=== PATIENT | female | born 1950 | race Caucasian/White ===

== ENCOUNTER 2016-10-27 05:48 | Emergency (ER) | payer MEDICARE, OTHER ==
--- NOTE | 2016-10-27 06:09 | ED Physician Documentation ---
PD HPI ABD PAIN <Alvarez,Chon Ryder - Last Filed: 10/27/16 06:09> <MaribethgustavoKelsey W - Last Filed: 10/27/16 08:15> - Stated complaint Stated Complaint: ABD PX - Chief complaint Chief Complaint: Abd Pain - Additional information Additional information: hx from pt 65 f hx crohns - her GI is Dr Kirby, not taking meds 2/2 cannot afford them prior bowel resection and tubal ligation upper abd pain began yesterday +NV no BM for two days, had non bloody diarrhea before that no fever chills no bad food or travel ([place]) Review of Systems Constitutional: denies: Fever, Chills Cardiac: denies: Chest pain / pressure Respiratory: denies: Dyspnea GI: reports: Abdominal Pain, Nausea, Vomiting Immunocompromised: denies: Immunocompromised <[place] W - Last Filed: 10/27/16 08:15> PD PAST MEDICAL HISTORY - Past Medical History Past Medical History: Yes Respiratory: Asthma Endocrine/Autoimmune: HyPOthyroidism GI: GERD, Crohn's disease Musculoskeletal: Fibromyalgia, Rheumatoid arthritis - Past Surgical History Past Surgical History: Yes General: Bowel surgery - Social History Does the pt smoke?: No Smoking Status: Never smoker Does the pt drink ETOH?: No Does the pt have substance abuse?: No - Immunizations Immunizations are current?: Yes - POLST Patient has POLST: No <Chon Alvarez A - Last Filed: 10/27/16 06:09> <FelixKelsey W - Last Filed: 10/27/16 08:15> - Present Medications Home Medications: Ambulatory Orders Medication Instructions Recorded Confirmed No Known Home Medications [No 10/27/16 10/27/16 Known Home Medications] - Allergies Allergies/Adverse Reactions: Allergies Allergy/AdvReac Type Severity Reaction Status Date / Time Penicillins Allergy Cramps Verified 10/27/16 05:54 PD ED PE NORMAL - Vitals Vital signs reviewed: Yes - General General: Alert and oriented X 3 - HEENT HEENT: PERRL - Neck Neck: Supple, no meningeal sign - Cardiac Cardiac: RRR - Respiratory Respiratory: No respiratory distress, Clear bilaterally - Abdomen Abdomen: Soft, Other (mod TTP across upper abd and right abd s rebound or guarding) - Derm Derm: Normal color - Neuro Neuro: Alert and oriented X 3 <[place] W - Last Filed: 10/27/16 08:15> - Vitals Vitals: Vital Signs - 24 hr 10/27/16 10/27/16 10/27/16 05:51 07:05 08:00 Temperature 35.9 C L Heart Rate 87 81 81 Respiratory 18 18 18 Rate Blood Pressure 143/77 H 145/75 H 156/68 H O2 Saturation 95 95 87 L 10/27/16 08:05 Temperature Heart Rate Respiratory Rate Blood Pressure O2 Saturation 96 Oxygen O2 Source Nasal cannula Oxygen Flow Rate 2 - Labs Labs: Laboratory Tests 10/27/16 10/27/16 10/27/16 06:45 06:45 06:52 WBC 13.5 H RBC 4.96 Hgb 15.2 Hct 46.2 MCV 93.1 MCH 30.5 MCHC 32.8 RDW 14.0 Plt Count 387 MPV 9.2 Neut # 10.6 H Lymph # 2.0 [place] # 0.8 Eos # 0.1 Baso # 0.1 Absolute Nucleated RBC 0.02 Nucleated RBCs 0.1 Sodium 137 Potassium 4.0 Chloride 96 L Carbon Dioxide 33 H Anion Gap 8.0 BUN 8 Creatinine 0.7 Estimated GFR (MDRD) 84 L Glucose 107 H Calcium 9.1 Total Bilirubin 0.8 AST 29 ALT 21 Alkaline Phosphatase 99 Total Protein 7.2 Albumin 3.9 Globulin 3.3 Albumin/Globulin Ratio 1.2 Lipase 18 L Urine Color YELLOW Urine Clarity CLEAR Urine pH 5.5 Ur Specific [place] >=1.030 H Urine Protein TRACE Urine Glucose (UA) NEGATIVE Urine Ketones NEGATIVE Urine Occult Blood TRACE-INTA Urine Nitrite NEGATIVE Urine Bilirubin NEGATIVE Urine Urobilinogen 0.2 (NORMAL) Ur Leukocyte Esterase TRACE H Urine RBC 0-5 Urine WBC 0-3 Ur Squamous Epith Cells RARE Squamous Urine Bacteria Moderate H Ur Microscopic Review INDICATED Urine Culture Comments INDICATED
[2016-10-27] MEDS ORDERED: SODIUM CHLORIDE 0.9% 1,000 ML IV STA (06:57)
[2016-10-27] MEDS ORDERED: MORPHINE 2 MG/ML SYRINGE IVP STA ×2 (06:57→07:48)
[2016-10-27] MEDS ORDERED: ONDANSETRON 4 MG/2 ML VIAL IVP STA ×2 (06:57→07:48)
[2016-10-27] MEDS ORDERED: MORPHINE 2 MG/ML SYRINGE ONE ×2 (06:58→07:49)
[2016-10-27] MEDS ORDERED: ONDANSETRON 4 MG/2 ML VIAL ONE ×2 (06:58→07:49)
[2016-10-27 07:19] LABS: PH,URINE 5.5 PH (5.0-7.5)
[2016-10-27 07:19] LABS: BASOPHILS # (AUTO) 0.1 10^3/uL (0.0-0.1); BASOPHILS % (AUTO) 0.6 %; EOSINOPHILS # (AUTO) 0.1 10^3/uL (0.0-0.7); EOSINOPHILS % (AUTO) 0.5 %; HCT - HEMATOCRIT 46.2 % (37.0-47.0); HGB - HEMOGLOBIN 15.2 g/dL (12.0-16.0); LYMPHOCYTES % (AUTO) 14.8 %; MEAN CORPUSCULAR HEMOGLOBIN 30.5 pg (27.0-31.0); MEAN CORPUSCULAR HGB CONC 32.8 g/dL (32.0-36.0); MEAN CORPUSCULAR VOLUME 93.1 fL (81.0-99.0); MEAN PLATELET VOLUME 9.2 fL (7.9-10.8); MONOCYTES # (AUTO) 0.8 10^3/uL (0.0-1.0); MONOCYTES % (AUTO) 5.6 %; NEUTROPHILS # (AUTO) 10.6 10^3/uL (1.5-6.6); NEUTROPHILS % (AUTO) 78.5 %; NUCLEATED RED BLOOD CELLS AUTO 0.1 /100WBC; RED BLOOD COUNT 4.96 10^6/uL (4.20-5.40); UNCORRECTED WHITE BLOOD COUNT 13.5 x10^3/uL; WHITE BLOOD COUNT 13.5 x10^3/uL (4.8-10.8)
[2016-10-27 07:25] LABS: ALBUMIN/GLOBULIN RATIO 1.2 (1.0-2.2); BILIRUBIN,TOTAL 0.8 mg/dL (0.2-1.0); CALCIUM 9.1 mg/dL (8.5-10.3); CREATININE 0.7 mg/dL (0.4-1.0); TOTAL PROTEIN 7.2 g/dL (6.7-8.2)
[2016-10-27 07:39] LABS: BILIRUBIN,URINE NEGATIVE (NEGATIVE); UA w/ MICROSCOPIC CHARGE YES; WBC,URINE 0-3 /HPF (0-5)
[2016-10-27 07:40] LABS: UR CULTURE IF IND INDICATED
[2016-10-27] MEDS ORDERED: SODIUM CHLORIDE 0.9% 1,000 ML IV ONE (07:49)
--- NOTE | 2016-10-27 08:19 | ED Physician Documentation ---
History of Present Illness - Stated complaint Stated Complaint: ABD PX - Chief complaint Chief Complaint: Abd Pain - Additonal information Additional information: hx from pt 65 f hx crohns her GI is Dr Kirby at [facility] in [place], not taking meds 2/2 cannot afford them to ER with upper abd pain since yesterday getting worse +NV diarrhea 2 days ago s blood, no BM since no urinary sx prior surgery = bowel resection and tubal no travel or bad food Review of Systems Constitutional: denies: Fever, Chills Cardiac: denies: Chest pain / pressure GI: reports: Abdominal Pain, Nausea, Vomiting. denies: Diarrhea Endocrine: denies: Easy bruising / bleeding Immunocompromised: denies: Immunocompromised PD PAST MEDICAL HISTORY - Past Medical History Past Medical History: Yes Respiratory: Asthma Endocrine/Autoimmune: HyPOthyroidism GI: GERD, Crohn's disease Musculoskeletal: Fibromyalgia, Rheumatoid arthritis - Past Surgical History Past Surgical History: Yes General: Bowel surgery - Present Medications Home Medications: Ambulatory Orders Medication Instructions Recorded Confirmed No Known Home Medications [No 10/27/16 10/27/16 Known Home Medications] - Allergies Allergies/Adverse Reactions: Allergies Allergy/AdvReac Type Severity Reaction Status Date / Time Penicillins Allergy Cramps Verified 10/27/16 05:54 - Social History Does the pt smoke?: No Smoking Status: Never smoker Does the pt drink ETOH?: No Does the pt have substance abuse?: No - Immunizations Immunizations are current?: Yes - POLST Patient has POLST: No PD ED PE NORMAL - Vitals Vital signs reviewed: Yes - General General: Alert and oriented X 3 - HEENT HEENT: Atraumatic - Cardiac Cardiac: RRR - Respiratory Respiratory: No respiratory distress - Abdomen Abdomen: Soft, Other (TTP upper abd and right abd s rebound or gaurding) - Derm Derm: Normal color - Neuro Neuro: Alert and oriented X 3 Results - Vitals Vitals: Vital Signs - 24 hr 10/27/16 10/27/16 10/27/16 05:51 07:05 08:00 Temperature 35.9 C L Heart Rate 87 81 81 Respiratory 18 18 18 Rate Blood Pressure 143/77 H 145/75 H 156/68 H O2 Saturation 95 95 87 L 10/27/16 10/27/16 10/27/16 08:05 09:13 11:32 Temperature Heart Rate 85 89 Respiratory 20 12 Rate Blood Pressure 147/72 H 152/75 H O2 Saturation 96 95 98 Oxygen O2 Source Room air Oxygen Flow Rate 2 - Labs Labs: Laboratory Tests 10/27/16 10/27/16 10/27/16 06:45 06:45 06:52 WBC 13.5 H RBC 4.96 Hgb 15.2 Hct 46.2 MCV 93.1 MCH 30.5 MCHC 32.8 RDW 14.0 Plt Count 387 MPV 9.2 Neut # 10.6 H Lymph # 2.0 [place] # 0.8 Eos # 0.1 Baso # 0.1 Absolute Nucleated RBC 0.02 Nucleated RBCs 0.1 Sodium 137 Potassium 4.0 Chloride 96 L Carbon Dioxide 33 H Anion Gap 8.0 BUN 8 Creatinine 0.7 Estimated GFR (MDRD) 84 L Glucose 107 H Calcium 9.1 Total Bilirubin 0.8 AST 29 ALT 21 Alkaline Phosphatase 99 Total Protein 7.2 Albumin 3.9 Globulin 3.3 Albumin/Globulin Ratio 1.2 Lipase 18 L Urine Color YELLOW Urine Clarity CLEAR Urine pH 5.5 Ur Specific [place] >=1.030 H Urine Protein TRACE Urine Glucose (UA) NEGATIVE Urine Ketones NEGATIVE Urine Occult Blood TRACE-INTA Urine Nitrite NEGATIVE Urine Bilirubin NEGATIVE Urine Urobilinogen 0.2 (NORMAL) Ur Leukocyte Esterase TRACE H Urine RBC 0-5 Urine WBC 0-3 Ur Squamous Epith Cells RARE Squamous Urine Bacteria Moderate H Ur Microscopic Review INDICATED Urine Culture Comments INDICATED - Rads (name of study) CT abd pelvis Radiology: See rad report (cholelithiasis wuth signbs of acute cholecystitis. MAss like lesion pancreatic body approx 5 cm with 2 small adenopathy, no bile duct dilitation, dx mesenchymal pancreatic tumor, endocrine tumor, vs less likely regional nonacute pancreatitis, rec further work up, s/p R hemicolectomy) PD MEDICAL DECISION MAKING - ED course ED course: acute cholecystitis but also pancreatic mass d/w [facility] surgeon Dr De Leon who feels pt better served having surgery at tertiary care facility so can get biopsy etc f mass at the same time surgeon Dr Jame Peters at [facility] accepts pt pt pcn allergy was internal bleeding in 1979 - gave cefoxitin s adverse rxn Departure - Departure Disposition: 02 Transfer Acute Care Hosp Clinical Impression: Cholecystitis, Pancreatic mass Condition: Fair Discharge Date/Time: 10/27/16 12:57
[2016-10-27] MEDS ORDERED: IOPAMIDOL-300 100 ML VIAL IVP ONE (09:01)
[2016-10-27] MEDS ORDERED: IOPAMIDOL-300 50 ML VIAL PO ONE (09:01)
--- NOTE | 2016-10-27 10:17 | CT Preliminary Report ---
Exam: CT Abdomen/Pelvis W/ IMPRESSION: 1. Cholelithiasis with findings suggesting acute cholecystitis; clinical correlation and follow-up ex am of abdominal ultrasound are considered. Negative bile duct dilatation. 2. 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 3. Status post partial right hemicolectomy, unremarkable. 4. Large right diaphragmatic eventration. 5. 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 [facility] SITE ID: [id number]
--- NOTE | 2016-10-27 10:20 | CT Report ---
EXAM: CT ABDOMEN AND PELVIS EXAM DATE: 10/27/2016 09:02 AM. CLINICAL HISTORY: Abdominal pain COMPARISONS: None. TECHNIQUE: Routine helical CT imaging was performed through the abdomen and pelvis. IV contrast: 100 cc, A3 50. Enteric contrast: No. Reconstructions: Coronal and sagittal. In accordance with CT protocol optimization, one or more of the following dose reduction techniques w ere utilized for this exam: automated exposure control, adjustment of mA and/or KV based on patient s ize, or use of iterative reconstructive technique. FINDINGS: Lung Bases and lower chest: There is large right diaphragmatic eventration containing maturity of the liver, the right kidney and the distal ascending colon, with small right basilar compressive atelect asis. Liver: No contour changes or masses. Gallbladder/Bile Ducts: There is a stone in the gallbladder neck, 1.6 cm with diffuse slight thickeni ng wall and hyperenhancement of the gallbladder, small to moderate amount pericholecystic fluid. The re is no bile duct dilatation. Spleen: Normal. Pancreas: Interbody area, is dumbbell shaped mass with heterogeneous enhancement, 2 x 2.1 x 5 cm. The re are 2 small lymph nodes posterior to pancreatic mass, 0.7 cm in short dimension. No pancreatic yusuf t dilatation or peripancreatic fat stranding. Adrenal Glands: Normal. Kidneys: No stone, masses or hydronephrosis. Peritoneal Cavity/Bowel: There is a periampullary duodenal diverticulum without acute inflammatory ch anges, 2.2 x 2 x 3.2 cm. There is a small amount of anterior right perihepatic free fluid; otherwise, no ascites, loculated fluid, abscess or free air. Status post partial right hemicolectomy is noted, unremarkable; no bowel dilatation, thickened wall or acute inflammatory process. Pelvic Organs: The bladder and visualized pelvic organs are within normal limits. Vasculature: No aneurysms or other significant abnormality. Bones: No bony destructive abnormality. There is multilevel mild/moderate degenerative disk disease in lumbar spine, predominantly in the L4-L5 and L5-S1 and mild anterior transition of the L4 and L5, 5 mm. Other: No ventral hernia or inguinal hernia seen. IMPRESSION: 1. Cholelithiasis with findings suggesting acute cholecystitis; clinical correlation and follow-up ex am of abdominal ultrasound are considered. Negative bile duct dilatation. 2. 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 3. Status post partial right hemicolectomy, unremarkable. 4. Large right diaphragmatic eventration. 5. 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 [facility] Referring Provider Line: [phone] SITE ID: [id number]
[2016-10-27] MEDS ORDERED: HYDROmorphone 1 MG/ML SYRINGE IVP STA ×3 (10:55→13:25)
[2016-10-27] MEDS ORDERED: HYDROmorphone 1 MG/ML SYRINGE ONE ×2 (10:56→12:45)
[2016-10-27] MEDS ORDERED: cefOXitin 1 GM in SODIUM CHLORIDE 0.9% MINIBAG 100 ML IV STA (11:12)
[2016-10-27 11:33] VITALS: BP 152/75
== END 2016-10-27 12:57 | disposition short-term general hospital (02) ==
LOC: ED 05:48
DX: K81.9 Cholecystitis, unspecified (principal)
CPT/HCPCS: 36415; 74177; 80053; 81001; 83690; 85025; 87086; 96361; 96374; 96375; 96376; 99284; J1170; Q9967; 81003

== ENCOUNTER 2016-10-27 12:51 | Outpatient (CLI) | payer MEDICARE, OTHER | END 2016-10-27 12:52 | disposition short-term general hospital (02) | LOC: EMS 12:51 | PROVIDERS: ATTEND Surgery | DX: K81.9 Cholecystitis, unspecified (principal) | CPT/HCPCS: A0170; A0425; A0426 ==

== ENCOUNTER 2016-11-02 05:29 | Emergency (ER) | payer MEDICARE, OTHER ==
[2016-11-02 05:40] VITALS: BP 159/84
[2016-11-02] MEDS ORDERED: ONDANSETRON ODT 4 MG TABLET TL STA (05:49)
[2016-11-02] MEDS ORDERED: ONDANSETRON ODT 4 MG TABLET ONE (05:51)
--- NOTE | 2016-11-02 06:03 | ED Physician Documentation ---
PD HPI WOUND RECHECK - Stated complaint Stated Complaint: ABD PX,POST SURG - Chief complaint Chief Complaint: Wound - Histroy obtained from History obtained from: Patient - History of Present Illness Location: Abdomen (She had open cholecystectomy in [place] 10/27 and discharged to [facility] 2 days ago, and then went home yesterday. Daughter is helping her with dressing changes. She has wound drain which is draining. No fevers, is having some nausea but no vomiting. Has had soft BMs. Daughter was concerned that there was some drainage from around the drain tubing in abdomen.) Timing - onset: Last night Associated symptoms: Drainage (from around vacuum suctin tubing, mild.). No: Fever, Redness Recently seen: Surgery (has Rx for pain meds; had Rx for Zofran but is out of it last night.) Review of Systems Constitutional: denies: Fever, Chills Throat: denies: Sore throat Cardiac: denies: Chest pain / pressure, Palpitations Respiratory: denies: Dyspnea, Cough, Wheezing GI: denies: Diarrhea, Bloody / black stool : denies: Dysuria, Frequency Skin: denies: Rash, Lesions PD PAST MEDICAL HISTORY - Past Medical History Respiratory: Asthma Endocrine/Autoimmune: HyPOthyroidism GI: GERD, Crohn's disease Musculoskeletal: Fibromyalgia, Rheumatoid arthritis - Past Surgical History Past Surgical History: Yes General: Cholecystectomy (1 week ago in [place]. Had pancreatic mass noted on CT and she says this will get biopsied in near future (not done during [facility]).), Bowel surgery - Present Medications Home Medications: Ambulatory Orders Medication Instructions Recorded Confirmed Albuterol 2.5 mg INH Q4H PRN 11/02/16 11/02/16 Albuterol Sulfate [Proair Hfa 8.5 gm IH 11/02/16 Inhaler] Budesonide/Formoterol Fumarate 10.2 gm 11/02/16 [Symbicort 160-4.5 Mcg Inhaler] DULoxetine [Cymbalta] 60 mg PO DAILY 11/02/16 11/02/16 Docusate Sodium 100 mg PO DAILY 11/02/16 11/02/16 Gabapentin 400 mg PO DAILY 11/02/16 11/02/16 Hydroxychloroquine [Plaquenil] 200 mg PO DAILY 11/02/16 11/02/16 Levothyroxine [Synthroid] 125 mcg PO QDAC 11/02/16 11/02/16 Liothyronine [Cytomel] 5 mcg PO QDAC 11/02/16 11/02/16 Modafinil 200 mg PO DAILY 11/02/16 11/02/16 Ondansetron HCl [Zofran] 4 mg PO Q6H PRN #20 tablet 11/02/16 Oxybutynin [Ditropan] 5 mg PO BID 11/02/16 11/02/16 Prednisone 10 mg PO DAILY 11/02/16 11/02/16 Senna [Senokot] 8.6 mg PO ONCE 11/02/16 11/02/16 oxyCODONE [Roxicodone] 10 mg PO Q6H 11/02/16 11/02/16 - Allergies Allergies/Adverse Reactions: Allergies Allergy/AdvReac Type Severity Reaction Status Date / Time Penicillins Allergy Cramps Verified 11/02/16 05:41 - Social History Does the pt smoke?: No Smoking Status: Never smoker Does the pt drink ETOH?: No Does the pt have substance abuse?: No - Immunizations Immunizations are current?: Yes - POLST Patient has POLST: No PD ED PE NORMAL - Vitals Vital signs reviewed: Yes - General General: Alert and oriented X 3, No acute distress, Well developed/nourished - HEENT HEENT: Pharynx benign - Neck Neck: Supple, no meningeal sign, No bony TTP, No adenopathy - Cardiac Cardiac: RRR, No murmur - Respiratory Respiratory: No respiratory distress, Clear bilaterally - Abdomen Abdomen: Normal bowel sounds, Soft, Non distended, No organomegaly, Other ( drainage tube from right mid/upper abdomen, draining clear to slightly blood fluids into bulb. There is mild clear fluid from skin around the skin hole for the tubing. No purulence, not tender in the area. Skin not tender. ) Results - Vitals Vitals: Vital Signs - 24 hr 11/02/16 05:34 Temperature 36.3 C L Heart Rate 98 Respiratory 18 Rate Blood Pressure 159/84 H O2 Saturation 94 Oxygen O2 Source Room air PD MEDICAL DECISION MAKING - ED course Complexity details: reviewed results, considered differential, d/w patient Departure - Departure Disposition: 01 Home, Self Care Clinical Impression: Encounter for postoperative wound check, Postoperative nausea Condition: Stable Record reviewed to determine appropriate education?: Yes Instructions: ED Wound Care Follow-Up: Jose Meng MD [Primary Care Provider] - Prescriptions: Ondansetron HCl [Zofran] 4 mg PO Q6H PRN #20 tablet PRN Reason: Nausea / Vomiting Comments: Your wound seems okay right now. Follow up with PMD today as planned. Continue current medications. Ondansatron as needed for nausea. Discharge Date/Time: 11/02/16 06:07
== END 2016-11-02 06:07 | disposition home or self-care (01) ==
LOC: ED 05:29
DX: R11.0 Nausea (principal); Y83.8 Other surgical procedures as the cause of abnormal reaction of the patient, or of later complication, without mention of misadventure at the time of the procedure; Z90.49 Acquired absence of other specified parts of digestive tract; E03.9 Hypothyroidism, unspecified; M06.9 Rheumatoid arthritis, unspecified
CPT/HCPCS: 99283; Q0162

== ENCOUNTER 2016-12-31 08:00 | Outpatient (CLI) | payer MEDICARE, OTHER | END 2016-12-31 23:59 | disposition home or self-care (01) | LOC: LAB.R 08:00 | PROVIDERS: ATTEND Internal Medicine Gastroenterology | DX: K52.9 Noninfective gastroenteritis and colitis, unspecified (principal); C7A.098 Malignant carcinoid tumors of other sites; R63.4 Abnormal weight loss | CPT/HCPCS: 82570; 83497 ==

== ENCOUNTER 2017-01-30 15:56 | Outpatient (CLI) | payer MEDICARE, OTHER | END 2017-01-30 15:57 | disposition critical access hospital (66) | LOC: EMS 15:56 | PROVIDERS: ATTEND Surgery | DX: R53.1 Weakness (principal); R11.2 Nausea with vomiting, unspecified; R19.7 Diarrhea, unspecified | CPT/HCPCS: A0425; A0427 ==

== ENCOUNTER 2017-01-30 16:10 | Emergency (ER) | payer MEDICARE, OTHER ==
[2017-01-30 17:11] LABS: BASOPHILS % (AUTO) 3.3 %; EOSINOPHILS % (AUTO) 5.4 %; HCT - HEMATOCRIT 41.5 % (37.0-47.0); HGB - HEMOGLOBIN 13.3 g/dL (12.0-16.0); LYMPHOCYTES % (AUTO) 25.1 %; MEAN CORPUSCULAR HEMOGLOBIN 28.9 pg (27.0-31.0); MEAN CORPUSCULAR HGB CONC 32.1 g/dL (32.0-36.0); MEAN CORPUSCULAR VOLUME 90.1 fL (81.0-99.0); MEAN PLATELET VOLUME 8.2 fL (7.9-10.8); MONOCYTES % (AUTO) 6.9 %; NEUTROPHILS % (AUTO) 59.3 %; RED CELL DISTRIBUTION WIDTH 14.7 % (12.0-15.0)
[2017-01-30 17:19] LABS: ALBUMIN/GLOBULIN RATIO 0.9 (1.0-2.2); BILIRUBIN,TOTAL 1.3 mg/dL (0.2-1.0); CALCIUM 9.2 mg/dL (8.5-10.3); CREATININE 0.4 mg/dL (0.4-1.0); POTASSIUM 4.2 mmol/L (3.5-5.0); TOTAL PROTEIN 7.6 g/dL (6.7-8.2)
[2017-01-30] MEDS ORDERED: SODIUM CHLORIDE 0.9% 1,000 ML IV ONE ×2 (17:23)
[2017-01-30 17:34] LABS: BAND NEUTROPHILS % (MANUAL) 2 %; BASOPHILS % (MANUAL) 1 %; EOSINOPHILS % (MANUAL) 4 %; LYMPHOCYTES % (MANUAL) 31 %; NEUTROPHILS % (MANUAL) 57 %; TOTAL CELLS COUNTED 100
[2017-01-30 17:36] LABS: NP AUTO DIFFERENTIAL? YES; NP MAN DIFFERENTIAL? NO; PLATELET ESTIMATE, MANUAL INCREASED (>450,000) (NORMAL); PLATELET MORPHOLOGY 1+ GIANT PLATELETS (NORMAL)
[2017-01-30] MEDS ORDERED: IOPAMIDOL-300 100 ML VIAL ONE (17:49)
[2017-01-30] MEDS ORDERED: PROMETHAZINE INJ 25 MG in SODIUM CHLORIDE 0.9% 50 ML IV STA (17:56)
[2017-01-30] MEDS ORDERED: PROMETHAZINE 25 MG/1 ML VIAL ONE (18:02)
[2017-01-30 19:17] LABS: BILIRUBIN,URINE NEGATIVE (NEGATIVE)
[2017-01-30 19:27] LABS: UA CHARGE (STRIP ONLY) YES; UR CULTURE IF IND NOT INDICATED
--- NOTE | 2017-01-30 19:35 | CT Preliminary Report ---
Exam: CT Abdomen/Pelvis W/ IMPRESSION: 1. Extensive postoperative changes with irregular fluid collection at the level of the pancreatic hea d. 2. Cystic lesion of the left lobe of the liver, most likely organized hematoma. 3. Organizing hematoma of left mid anterior omentum. 4. Chronic elevation of right hemidiaphragm and other chronic or incidental findings. [facility] SITE ID: [id number]
--- NOTE | 2017-01-30 19:37 | CT Report ---
EXAM: CT ABDOMEN AND PELVIS EXAM DATE: 01/30/2017 06:58 PM. CLINICAL HISTORY: Vomiting x3 weeks s/p pancreatic surgery. COMPARISONS: 10/27/2016. TECHNIQUE: Routine helical CT imaging was performed through the abdomen and pelvis. IV contrast: 100 cc Isovue-300. Enteric contrast: No. Reconstructions: Coronal and sagittal. In accordance with CT protocol optimization, one or more of the following dose reduction techniques w ere utilized for this exam: automated exposure control, adjustment of mA and/or KV based on patient s ize, or use of iterative reconstructive technique. FINDINGS: Lung Bases: Marked elevation of right hemidiaphragm with small amount of underlying basilar atelectas is, similar to previous study. Otherwise clear. No effusion. Liver: Homogeneous cystic lesion along the anterior inferior margin of the left lobe measuring about 4.2 x 2.5 cm on coronal image 17, not present on previous study. Gallbladder/Bile Ducts: Interval cholecystectomy. No ductal dilation. Spleen: Interval splenectomy. Pancreas: Interval pancreatectomy. Irregular fluid collection at level of pancreatic head measuring a bout 8.0 x 4.6 x 3.0 cm, associated with surgical suture lines and mild hazy infiltration of the panc reatic bed. Adrenal Glands: Normal. Kidneys: Normal. No masses or hydronephrosis. Peritoneal Cavity/Bowel: Minimal colonic diverticulosis. No diverticulitis. Heterogeneous soft tissue density in anterior abdomen just below the left anterior abdominal wall, measuring about 4.5 x 2.8 c m on axial image 53, most likely small hematoma. Additional hazy infiltration of mesenteric fat and o verlying musculature and subcutaneous fat representing mild edema. The appendix is well visualized an d normal. Pelvic Organs: Normal. The bladder and visualized pelvic organs are within normal limits. Vasculature: No aneurysms or other significant abnormality. Bones: No significant abnormality. Other: None. IMPRESSION: 1. Extensive postoperative changes with irregular fluid collection at the level of the pancreatic hea d. 2. Cystic lesion of the left lobe of the liver, most likely organized hematoma. 3. Organizing hematoma of left mid anterior omentum. 4. Chronic elevation of right hemidiaphragm and other chronic or incidental findings. [facility] Referring Provider Line: [phone] SITE ID: [id number]
[2017-01-30] MEDS ORDERED: ONDANSETRON 4 MG/2 ML VIAL IVP STA (20:16)
[2017-01-30] MEDS ORDERED: ONDANSETRON 4 MG/2 ML VIAL ONE (20:25)
[2017-01-30] MEDS ORDERED: MORPHINE 2 MG/ML SYRINGE IVP STA (20:28)
[2017-01-30] MEDS ORDERED: MORPHINE 2 MG/ML SYRINGE ONE (20:34)
--- NOTE | 2017-01-30 21:17 | ED Physician Documentation ---
PD HPI ABD PAIN - Stated complaint Stated Complaint: N/V/D - Chief complaint Chief Complaint: Abd Pain - History obtained from History obtained from: Patient, Family - History of Present Illness Timing - onset: How many weeks ago (3) Timing - duration: Weeks (3) Timing - details: Gradual onset Pain level max: 8 Pain level now: 8 Quality: Aching, Pain Location: All over / everywhere Radiation: Other (non-radiating) Improved by: Meds (oxycodone) Worsened by: Other (nothing) Associated symptoms: Nausea, Vomiting. No: Fever, Hematemesis, Diarrhea, Constipation, Melena, Hematochezia, Dysuria, Hematuria Similar symptoms before: Has not had sx before - Additional information Additional information: Patient is a 66-year-old female who presents to the emergency department with abdominal pain and vomiting status post a pancreatic surgery 3 weeks ago. She states she has been vomiting since approximately 2-3 days after she got home. She states that she has not contacted her surgeon, her primary care doctor or her oncologist. She canceled her chemotherapy because of the vomiting. Denies any fevers. Review of Systems Ten Systems: 10 systems reviewed and negative Constitutional: denies: Fever, Chills Ears: denies: Ear pain Nose: denies: Rhinorrhea / runny nose, Congestion GI: denies: Diarrhea, Hematemesis, Bloody / black stool : denies: Dysuria Skin: denies: Rash Musculoskeletal: denies: Neck pain, Back pain Neurologic: denies: Headache PD PAST MEDICAL HISTORY - Past Medical History Respiratory: Asthma Endocrine/Autoimmune: HyPOthyroidism GI: GERD, Crohn's disease Musculoskeletal: Fibromyalgia, Rheumatoid arthritis Other Past Medical History: pancreatic CA - Past Surgical History Past Surgical History: Yes General: Cholecystectomy, Bowel surgery, Other - Present Medications Home Medications: Ambulatory Orders Medication Instructions Recorded Confirmed Albuterol 2.5 mg INH Q4H PRN 11/02/16 11/02/16 Albuterol Sulfate [Proair Hfa 8.5 gm IH 11/02/16 Inhaler] Budesonide/Formoterol Fumarate 10.2 gm 11/02/16 [Symbicort 160-4.5 Mcg Inhaler] DULoxetine [Cymbalta] 60 mg PO DAILY 11/02/16 11/02/16 Docusate Sodium 100 mg PO DAILY 11/02/16 11/02/16 Gabapentin 400 mg PO DAILY 11/02/16 11/02/16 Hydroxychloroquine [Plaquenil] 200 mg PO DAILY 11/02/16 11/02/16 Levothyroxine [Synthroid] 125 mcg PO QDAC 11/02/16 11/02/16 Liothyronine [Cytomel] 5 mcg PO QDAC 11/02/16 11/02/16 Modafinil 200 mg PO DAILY 11/02/16 11/02/16 Ondansetron HCl [Zofran] 4 mg PO Q6H PRN #20 tablet 11/02/16 Oxybutynin [Ditropan] 5 mg PO BID 11/02/16 11/02/16 Prednisone 10 mg PO DAILY 11/02/16 11/02/16 Senna [Senokot] 8.6 mg PO ONCE 11/02/16 11/02/16 oxyCODONE [Roxicodone] 10 mg PO Q6H 11/02/16 11/02/16 - Allergies Allergies/Adverse Reactions: Allergies Allergy/AdvReac Type Severity Reaction Status Date / Time Penicillins Allergy Cramps Verified 01/30/17 16:18 - Social History Does the pt smoke?: No Smoking Status: Never smoker Does the pt drink ETOH?: No Does the pt have substance abuse?: No - Immunizations Immunizations are current?: Yes - POLST Patient has POLST: No PD ED PE NORMAL - Vitals Vital signs reviewed: Yes - General General: Alert and oriented X 3, No acute distress, Well developed/nourished ( obese female) - HEENT HEENT: PERRL, Moist mucous membranes - Neck Neck: Supple, no meningeal sign - Cardiac Cardiac: RRR, Strong equal pulses - Respiratory Respiratory: No respiratory distress, Clear bilaterally - Abdomen Abdomen: Normal bowel sounds, Soft, Non distended, Other (mild diffuse TTP without peritoneal signs. Incision is clean dry and intact.) - Back Back: No CVA TTP, No spinal TTP - Derm Derm: Warm and dry, No rash - Extremities Extremities: No calf tenderness / cord - Neuro Neuro: Alert and oriented X 3 - Psych Psych: Normal mood, Normal affect Results - Vitals Vitals: Oxygen O2 Source Room air - Labs Labs: Laboratory Tests 01/30/17 01/30/17 01/30/17 16:59 16:59 19:14 WBC 9.0 RBC 4.60 Hgb 13.3 Hct 41.5 MCV 90.1 MCH 28.9 MCHC 32.1 RDW 14.7 Plt Count 732 H MPV 8.2 Neut # Not Reportable Lymph # Not Reportable [place] # Not Reportable Eos # Not Reportable Baso # Not Reportable Absolute Nucleated RBC Not Reportable Total Counted 100 Band Neuts % (Manual) 2 Neutrophils # (Manual) 5.3 Lymphocytes # (Manual) 2.8 Monocytes # (Manual) 0.5 Eosinophils # (Manual) 0.4 Basophils # (Manual) 0.1 Nucleated RBCs Not Reportable Differential Comment MANUAL DIFFERENTIAL Manual Slide Review Indicated WBC Morphology 1+ HYPERSEG NEUT Platelet Estimate INCREASED (>450,000) Platelet Morphology 1+ GIANT PLATELETS RBC Morph Micro Appear 1+ POLYCHROMASIA Sodium 135 Potassium 4.2 Chloride 97 L Carbon Dioxide 27 Anion Gap 11.0 BUN 7 Creatinine 0.4 Estimated GFR (MDRD) 159 Glucose 103 H Calcium 9.2 Total Bilirubin 1.3 H AST 22 ALT 11 Alkaline Phosphatase 107 Total Protein 7.6 Albumin 3.5 Globulin 4.1 Albumin/Globulin Ratio 0.9 L Lipase 36 Urine Color YELLOW Urine Clarity CLEAR Urine pH 6.0 Ur Specific [place] 1.020 Urine Protein NEGATIVE Urine Glucose (UA) NEGATIVE Urine Ketones 15 H Urine Occult Blood NEGATIVE Urine Nitrite NEGATIVE Urine Bilirubin NEGATIVE Urine Urobilinogen 0.2 (NORMAL) Ur Leukocyte Esterase NEGATIVE Ur Microscopic Review NOT INDICATED Urine Culture Comments NOT INDICATED - Rads (name of study) CT abd/pelvis Radiology: Prelim report reviewed, EMP read contemporaneously, See rad report ( Extensive postoperative changes with irregular fluid collection at the level of the pancreatic head. Cystic lesion of the left lobe of the liver, most likely organized hematoma. Organizing hematoma of left mid anterior omentum. Chronic elevation of right hemidiaphragm and other chronic or incidental findings. ) PD MEDICAL DECISION MAKING - ED course Complexity details: reviewed results, re-evaluated patient, considered differential, d/w patient, d/w family, d/w weight loss consultant (2100 - Dr. Smiley ([facility]) graciously accepts in transfer.) ED course: Patient is a 66-year-old female status post pancreatic surgery for a pancreatic mass 3 weeks ago at [facility] in [place]. Has had vomiting since that time and abdominal pain. CT scan reveals a abnormal fluid collection near the pancreatic head on CT as well as what appears to be an organized hematoma in the liver. Discussed the case with 2100 Dr. Smiley, surgery at [facility] in [place] he graciously accepts in transfer. Antibiotics held at this time as no fever and normal WBC. This document was made in part using voice recognition software. While efforts are made to proofread this document, sound alike and grammatical errors may occur. Departure - Departure Disposition: 02 Transfer Acute Care Hosp Clinical Impression: Postoperative abscess Qualifiers: Encounter type: initial encounter Qualified Code(s): T81.4XXA - Infection following a procedure, initial encounter Vomiting Qualifiers: Vomiting type: unspecified Vomiting Intractability: intractable Nausea presence : with nausea Qualified Code(s): R11.2 - Nausea with vomiting, unspecified Condition: Stable Discharge Date/Time: 01/30/17 22:27
[2017-01-30 21:39] VITALS: BP 125/65
== END 2017-01-30 22:27 | disposition short-term general hospital (02) ==
LOC: EDUNIT# → ED 16:10
DX: T81.4XXA Infection following a procedure, initial encounter (principal); R11.2 Nausea with vomiting, unspecified; E03.9 Hypothyroidism, unspecified
CPT/HCPCS: 36415; 74177; 80053; 81003; 83690; 85025; 96365; 96375; 99284; 99285; J2270; J7040; Q9967; 81001; 87086

== ENCOUNTER 2017-01-30 21:49 | Outpatient (CLI) | payer MEDICARE, OTHER | END 2017-01-30 21:50 | disposition short-term general hospital (02) | LOC: EMS 21:49 | PROVIDERS: ATTEND Surgery | DX: R10.9 Unspecified abdominal pain (principal); R11.2 Nausea with vomiting, unspecified | CPT/HCPCS: A0425; A0426 ==

== ENCOUNTER 2017-03-26 14:53 | Emergency (ER) | payer MEDICARE, OTHER ==
[2017-03-26 20:09] LABS: BASOPHILS # (AUTO) 0.1 10^3/uL (0.0-0.1); BASOPHILS % (AUTO) 1.1 %; EOSINOPHILS # (AUTO) 0.3 10^3/uL (0.0-0.7); EOSINOPHILS % (AUTO) 2.8 %; HGB - HEMOGLOBIN 14.3 g/dL (12.0-16.0); LYMPHOCYTES # (AUTO) 3.4 10^3/uL (1.5-3.5); LYMPHOCYTES % (AUTO) 28.4 %; MEAN CORPUSCULAR HGB CONC 31.1 g/dL (32.0-36.0); MEAN CORPUSCULAR VOLUME 90.1 fL (81.0-99.0); MEAN PLATELET VOLUME 8.8 fL (7.9-10.8); MONOCYTES # (AUTO) 0.7 10^3/uL (0.0-1.0); NEUTROPHILS # (AUTO) 7.3 10^3/uL (1.5-6.6); NEUTROPHILS % (AUTO) 61.7 %; NUCLEATED RED BLOOD CELLS AUTO 0.1 /100WBC; RED CELL DISTRIBUTION WIDTH 15.4 % (12.0-15.0); UNCORRECTED WHITE BLOOD COUNT 11.9 x10^3/uL; WHITE BLOOD COUNT 11.9 x10^3/uL (4.8-10.8)
[2017-03-26 20:13] LABS: ALBUMIN/GLOBULIN RATIO 0.9 (1.0-2.2); BILIRUBIN,TOTAL 0.8 mg/dL (0.2-1.0); CALCIUM 9.5 mg/dL (8.5-10.3); CREATININE 0.6 mg/dL (0.4-1.0); POTASSIUM 3.5 mmol/L (3.5-5.0); TOTAL PROTEIN 7.7 g/dL (6.7-8.2)
[2017-03-26] MEDS ORDERED: oxyCOD/ACETAMIN 5 MG/325 MG TABLET PO STA (20:32)
[2017-03-26 20:39] LABS: PLATELET ESTIMATE, MANUAL INCREASED (>450,000) (NORMAL); PLATELET MORPHOLOGY 2+ GIANT PLATELETS (NORMAL); WBC MORPHOLOGY (MULTIPLE) NORMAL APPEARANCE (NORMAL)
[2017-03-26] MEDS ORDERED: oxyCOD/ACETAMIN 5 MG/325 MG TABLET PO ONE (20:39)
--- NOTE | 2017-03-26 21:35 | CT Preliminary Report ---
Exam: CT ABDOMEN/PELVIS W/O IMPRESSION: 1. Extensive postsurgical changes. No evidence of bowel obstruction, fluid collection or acute inflam matory process. 2. No urinary tract stones or obstruction. [facility] SITE ID: [id number]
--- NOTE | 2017-03-26 21:38 | CT Report ---
EXAM: CT ABDOMEN AND PELVIS EXAM DATE: 03/26/2017 09:08 PM. CLINICAL HISTORY: Abd pain with movement, multiple surgeries. COMPARISONS: 01/30/2017 CT. TECHNIQUE: Routine helical CT imaging was performed through the abdomen and pelvis. IV contrast: No. Enteric contrast: No. Reconstructions: Coronal and sagittal. In accordance with CT protocol optimization, one or more of the following dose reduction techniques w ere utilized for this exam: automated exposure control, adjustment of mA and/or KV based on patient s ize, or use of iterative reconstructive technique. FINDINGS: Lung Bases: Unremarkable. Liver: Postoperative changes related to previous right liver resection. The unenhanced liver is other mart unremarkable. Gallbladder/Bile Ducts: The gallbladder has been removed. No bile duct dilatation. Spleen: Absent. Pancreas: Status post partial pancreatectomy. Adrenal Glands: Normal. Kidneys: No urinary tract stones or obstructive changes. Peritoneal Cavity/Bowel: No bowel obstruction, free air or fluid collection. There is diverticulosis without diverticulitis. Fatty left upper quadrant lobule with an irregular soft tissue rim most likel y sequela of prior segmental omental infarction or torsion. The right colon has been removed. Pelvic Organs: Normal. The bladder and visualized pelvic organs are within normal limits. Vasculature: No aneurysms or other significant abnormality. Bones: No significant abnormality. Other: None. IMPRESSION: 1. Extensive postsurgical changes. No evidence of bowel obstruction, fluid collection or acute inflam matory process. 2. No urinary tract stones or obstruction. [facility] Referring Provider Line: [phone] SITE ID: [id number]
--- NOTE | 2017-03-26 21:43 | ED Physician Documentation ---
PD HPI ABD PAIN - Stated complaint Stated Complaint: SURGICAL SITE PX - Chief complaint Chief Complaint: General - History obtained from History obtained from: Patient - History of Present Illness Timing - onset: Today Timing - details: Abrupt onset, Still present Quality: Sharp Location: RUQ Improved by: Position Worsened by: Position, Palpation Associated symptoms: No: Fever, Nausea, Vomiting Similar symptoms before: No diagnosis Recently seen: Surgery - Additional information Additional information: Patient is a 66 year old female with a history of abdominal ca and multiple abdominal surgeries who is presenting to the emergency department for abdominal pain. Patient states that she bent down to pick something up and she felt a sharp pain in her abdomen. Patient states that she does not know if she pulled something or if she did something internally. Review of Systems Constitutional: denies: Fever, Chills Eyes: reports: Reviewed and negative Ears: reports: Reviewed and negative Nose: reports: Reviewed and negative Throat: reports: Reviewed and negative Cardiac: denies: Chest pain / pressure, Palpitations Respiratory: denies: Dyspnea, Cough, Wheezing GI: reports: Abdominal Pain. denies: Abdominal Swelling, Nausea, Vomiting, Constipation, Diarrhea : denies: Dysuria, Frequency, Unable to Void, Incontinent Skin: denies: Rash, Lesions Musculoskeletal: reports: Reviewed and negative Neurologic: denies: Generalized weakness, Focal weakness Endocrine: denies: Polyuria PD PAST MEDICAL HISTORY - Past Medical History Past Medical History: Yes Respiratory: Asthma Endocrine/Autoimmune: HyPOthyroidism GI: GERD, Crohn's disease Musculoskeletal: Fibromyalgia, Rheumatoid arthritis Other Past Medical History: Pancreatic cancer. - Past Surgical History Past Surgical History: Yes General: Cholecystectomy, Bowel surgery, Other - Present Medications Home Medications: Ambulatory Orders Medication Instructions Recorded Confirmed Albuterol 2.5 mg INH Q4H PRN 11/02/16 03/26/17 Budesonide/Formoterol Fumarate 10.2 gm IH BID 11/02/16 [Symbicort 160-4.5 Mcg Inhaler] DULoxetine [Cymbalta] 60 mg PO DAILY 11/02/16 03/26/17 Gabapentin 400 mg PO DAILY 11/02/16 03/26/17 Hydroxychloroquine [Plaquenil] 200 mg PO DAILY 11/02/16 03/26/17 Levothyroxine [Synthroid] 125 mcg PO QDAC 11/02/16 03/26/17 Liothyronine [Cytomel] 5 mcg PO QDAC 11/02/16 03/26/17 Modafinil 200 mg PO DAILY 11/02/16 03/26/17 Ondansetron HCl [Zofran] 4 mg PO Q6H PRN #20 tablet 11/02/16 03/26/17 Oxybutynin [Ditropan] 5 mg PO BID 11/02/16 03/26/17 oxyCODONE [Roxicodone] 10 mg PO Q6H 11/02/16 03/26/17 predniSONE [Prednisone] 10 mg PO DAILY 11/02/16 03/26/17 - Allergies Allergies/Adverse Reactions: Allergies Allergy/AdvReac Type Severity Reaction Status Date / Time Penicillins Allergy Cramps Verified 03/26/17 15:22 - Social History Does the pt smoke?: No Smoking Status: Never smoker Does the pt drink ETOH?: No Does the pt have substance abuse?: No - Immunizations Immunizations are current?: Yes Immunizations: TDAP current <10years - POLST Patient has POLST: No PD ED PE NORMAL - General General: Alert and oriented X 3, Well developed/nourished - HEENT HEENT: Atraumatic, PERRL - Neck Neck: Supple, no meningeal sign - Cardiac Cardiac: RRR, No murmur - Abdomen Abdomen: Soft - Derm Derm: Normal color, Warm and dry, No rash - Extremities Extremities: No deformity, No edema - Neuro Neuro: Alert and oriented X 3, No motor deficit, No sensory deficit, Normal speech Eye Opening: Spontaneous Motor: Obeys Commands Verbal: Oriented GCS Score: 15 - Psych Psych: Normal mood, Normal affect PD ED PE EXPANDED - General General: Alert, In Pain - Respiratory Respiratory: Wheezing - Abdomen Abdomen: Tender to palpation, RUQ (tenderness to right upper quadrant with palpation and with activation of abdominal muscles) Results - Vitals Vitals: Vital Signs - 24 hr 03/26/17 03/26/17 03/26/17 15:18 20:24 20:45 Temperature 36.2 C L 36.0 C L Heart Rate 107 H 108 H 122 H Respiratory 16 18 22 Rate Blood Pressure 135/77 H 124/75 159/100 H O2 Saturation 94 96 97 03/26/17 22:11 Temperature 36.8 C Heart Rate 107 H Respiratory 18 Rate Blood Pressure 138/74 H O2 Saturation 96 Oxygen O2 Source Room air Oxygen Flow Rate 92 - Labs Labs: Laboratory Tests 03/26/17 03/26/17 19:40 19:40 WBC 11.9 H RBC 5.10 Hgb 14.3 Hct 46.0 MCV 90.1 MCH 28.0 MCHC 31.1 L RDW 15.4 H Plt Count 527 H MPV 8.8 Neut # 7.3 H Lymph # 3.4 [place] # 0.7 Eos # 0.3 Baso # 0.1 Absolute Nucleated RBC 0.01 Nucleated RBC % 0.1 Manual Slide Review Indicated WBC Morphology NORMAL APPEARANCE Platelet Estimate INCREASED (>450,000) Platelet Morphology 2+ GIANT PLATELETS RBC Morph Micro Appear NORMAL APPEARANCE Sodium 138 Potassium 3.5 Chloride 97 L Carbon Dioxide 28 Anion Gap 13.0 BUN 10 Creatinine 0.6 Estimated GFR (MDRD) 100 Glucose 107 H Calcium 9.5 Total Bilirubin 0.8 AST 24 ALT 16 Alkaline Phosphatase 103 Total Protein 7.7 Albumin 3.7 Globulin 4.0 Albumin/Globulin Ratio 0.9 L Lipase 17 L - Rads (name of study) ct abdomen and pelvis Radiology: Final report received (no acute intraabdominal pathology) PD MEDICAL DECISION MAKING - ED course Complexity details: reviewed old records, reviewed results, re-evaluated patient , considered differential, d/w patient, d/w family ED course: Patient was seen and examined at bedside. labs were drawn and imaging was ordered. Patient was treated with her home medication of oxycodone. When patient's diagnostics came back they were all within normal limits. Patient required no further work up and was stable for discharge with outpatient follow up. Departure - Departure Disposition: 01 Home, Self Care Clinical Impression: Strain of abdominal muscle Condition: Good Instructions: ED Strain Abdominal Muscle Follow-Up: NISSA STEEVNSON MD [Primary Care Provider] - As Needed Comments: Your diagnostics today were within normal limits. the symptoms are likely secondary to an abdominal muscle strain. You can take your home medications and apply ice or heat as necessary. You may return to the emergency department at any time for new, worsening or uncontrollable symptoms. Discharge Date/Time: 03/26/17 22:00
[2017-03-26 22:13] VITALS: BP 138/74
== END 2017-03-26 22:00 | disposition home or self-care (01) ==
LOC: ED 14:53
DX: S39.011A Strain of muscle, fascia and tendon of abdomen, initial encounter (principal); X50.9XXA Other and unspecified overexertion or strenuous movements or postures, initial encounter; K50.90 Crohn's disease, unspecified, without complications; K21.9 Gastro-esophageal reflux disease without esophagitis; Z85.07 Personal history of malignant neoplasm of pancreas; M06.9 Rheumatoid arthritis, unspecified; M79.7 Fibromyalgia
CPT/HCPCS: 36415; 74176; 80053; 83690; 85025; 99283; 99284; A9270

== ENCOUNTER 2018-06-30 09:19 | Outpatient (CLI) | payer MEDICARE, OTHER ==
[2018-06-30] MEDS ORDERED: GADOBUTROL 10 MMOL/10 ML VIAL ONE (10:18)
[2018-06-30] MEDS ORDERED: GADOBUTROL 10 MMOL/10 ML VIAL IVP ONE (12:32)
--- NOTE | 2018-07-01 14:37 | MRI Report ---
Reason: PANCREATIC NEUROENDOCRINE TUMOR Procedure Date: 06/30/2018 Accession Number: [id number] / [id number] Procedure: MRI - Abdomen W/WO CPT Code: FULL RESULT: EXAM: MR ABDOMEN WITH AND WITHOUT CONTRAST (MR PANCREAS AND MRCP) EXAM DATE: 06/30/2018 12:18 PM. 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 COMPARISON: ABDOMEN W/WO 12/30/2017 10:18 AM. TECHNIQUE: Multiplanar breath-hold T1, T2, and DWI sequences obtained through the pancreas and abdomen on an MR scanner. Dedicated 2D and 3D MRCP sequences obtained through the biliary and pancreatic ducts. Images obtained before and after administration of 10 mL Gadavist intravenous contrast. Multiphase postcontrast sequences obtained through the pancreas. FINDINGS: Lung Bases: Markedly elevated right hemidiaphragm is unchanged. No effusion. Liver: Distorted anatomy due to elevated hemidiaphragm, otherwise intact. A tiny subcentimeter cyst is suggested in the anterior left hepatic lobe, unchanged but partially obscured by motion artifact on prior study. No suspicious liver lesion or mass is identified. Gallbladder: Gallbladder is not visualized, presumably surgically absent. Bile Ducts: No intrahepatic or extrahepatic duct dilatation. Pancreas: As before, there are postoperative changes related to distal pancreatectomy. No pancreatic lesion or mass is identified. The residual pancreatic duct measures 1-2 mm in diameter and appears normal with no stone or stricture. Spleen: Surgically absent. No soft tissue abnormality is identified at the splenectomy site. Kidneys: The kidneys appear normal with no mass or hydronephrosis. Adrenals: The adrenals appear normal. Bowel: The visualized segments of the small bowel and colon appear normal with no inflammation or obstruction. Retroperitoneum: The retroperitoneal structures appear normal with no mass or lymphadenopathy. Other: None. IMPRESSION: 1. Stable distal pancreatectomy and splenectomy changes with no adenopathy or mass to suggest residual or recurrent malignancy. 2. Stable elevated right hemidiaphragm. [facility]
== END 2018-06-30 09:20 | disposition home or self-care (01) ==
LOC: DI 09:19
PROVIDERS: ATTEND Internal Medicine Hematology & Oncology
DX: D3A.8 Other benign neuroendocrine tumors (principal); Z90.411 Acquired partial absence of pancreas; Z90.81 Acquired absence of spleen
CPT/HCPCS: 74183; A9585

== ENCOUNTER 2019-04-18 13:26 | Outpatient (CLI) | payer MEDICARE, OTHER ==
[2019-04-18] MEDS ORDERED: GADOBUTROL 10 MMOL/10 ML VIAL IVP ONE (15:52)
--- NOTE | 2019-04-20 17:58 | MRI Report ---
Reason: PANCREATIC NET Procedure Date: 04/18/2019 Accession Number: [id number] / [id number] Procedure: MRI - Abdomen W/WO CPT Code: Final Report FULL RESULT: EXAM: MR ABDOMEN WITH AND WITHOUT CONTRAST (MR PANCREAS AND MRCP) EXAM DATE: 04/18/2019 03:48 PM. CLINICAL HISTORY: 68-year-old with history of pancreatic neuroendocrine tumor. Follow-up examination. COMPARISON: MRI abdomen from 06/30/2018, 07/01/2017; CT of the abdomen and pelvis from 10/27/2016. TECHNIQUE: Multiplanar breath-hold T1, T2, and DWI sequences obtained through the pancreas and abdomen on an MR scanner. Dedicated 2D and 3D MRCP sequences obtained through the biliary and pancreatic ducts. Images obtained before and after administration of 10 cc Gadavist intravenous contrast. Multiphase postcontrast sequences obtained through the pancreas. FINDINGS: Lung Bases: There is elevation of the right hemidiaphragm, which is not significant change from prior examinations. Atelectasis is present at the right lung base. No pleural effusion. Liver: Overall hepatic size and signal characteristics are within normal limits. No significant fat or iron deposition is demonstrated. There is susceptibility artifact from surgical material in the anterior left hepatic lobe (series 1701, image 72). No focal liver lesions demonstrated. Gallbladder: Gallbladder is surgically absent. Bile Ducts: Within normal limits for the postcholecystectomy state. Common bile duct measures approximate 8 mm (series 601, image 22). No choledocholithiasis demonstrated. There is mild prominence of the intrahepatic bile ducts to the left hepatic lobe, which is similar to the most recent prior examination appears minimally progressed since 2018. No definite stricture is identified, and this could represent progressive post cholecystectomy reservoir effect. Pancreas: There are postsurgical changes from distal pancreatectomy. Along the resection margin, there is a 9 mm area of nodular signal hyperintensity (series 1801, image 58). This is also hyperintense on precontrast images and therefore demonstrates equivocal enhancement. This is not clearly seen on prior examinations. No dilation of the main pancreatic duct. The main pancreatic duct courses anterior to the common bile duct (series 701, image 22), suggestive of divisum configuration. Spleen: Surgically absent. Kidneys: There is a 12 mm cyst in the upper pole of the right kidney (series 701, image 30). In the upper pole of the left kidney, there is a 7 mm T2 hypointense nodule (series 701, image 25), which also demonstrates intrinsic T1 signal hyperintensity (series 701, image 56). This is similar to multiple prior examinations and may represent a hemorrhagic or proteinaceous cyst. No hydronephrosis. Adrenals: No nodules. Bowel: There are diverticuli arising from the second portion of the duodenum. There are postsurgical changes from right hemicolectomy with ileocolonic anastomosis. No evidence of bowel obstruction or inflammation in the visualized portions. Retroperitoneum: No abdominal aortic aneurysm is demonstrated. No retroperitoneal adenopathy. Other: There are fat-containing ventral hernias in the right upper abdomen (series 701, image 18). IMPRESSION: 1. Postsurgical changes from distal pancreatectomy and splenectomy. Along the resection margin of the pancreas, there is suggestion of a small, nodular area of T1 signal hyperintensity with equivocal enhancement, which is not definitely seen previously. Uncertain if this represents heterogeneous portion of the pancreatic parenchyma or local recurrence. Recommend correlation with tumor markers. In addition, short interval follow-up with pancreas protocol CT or MRI is recommended in 2-3 months (or earlier if there is biochemical evidence for recurrence). 2. No liver lesions or other findings suspicious for metastatic disease in the abdomen. 3. Divisum configuration of the pancreas. 4. Slight progression of mild intrahepatic biliary ductal dilation in the left hepatic lobe. No biliary stricture demonstrated, suggesting this may represent sequela of progressive postcholecystectomy reservoir effect. However, consider correlation with serum bilirubin. 5. No significant change in marked elevation of the right hemidiaphragm with mild right basilar atelectasis. [facility]
== END 2019-04-18 13:27 | disposition home or self-care (01) ==
LOC: DI 13:26
PROVIDERS: ATTEND Internal Medicine Hematology & Oncology
DX: Z08 Encounter for follow-up examination after completed treatment for malignant neoplasm (principal); Z85.07 Personal history of malignant neoplasm of pancreas; Z90.81 Acquired absence of spleen
CPT/HCPCS: 74183

== ENCOUNTER 2019-07-10 07:00 | Outpatient (CLI) | payer MEDICARE, OTHER ==
--- NOTE | 2019-07-13 12:01 | MRI Report ---
Reason: NEUROENDOCRINE CA, LIVER, PANCREAS Procedure Date: 07/10/2019 Accession Number: [id number] / [id number] Procedure: MRI - Abdomen W/O CPT Code: Final Report FULL RESULT: EXAM: MR ABDOMEN WITHOUT CONTRAST EXAM DATE: 07/10/2019 09:16 AM. CLINICAL HISTORY: 68-year-old with history of neuroendocrine cancer. Follow-up examination. COMPARISON: MRI abdomen from 04/18/2019, 06/30/2018. TECHNIQUE: Multiplanar breath-hold T1, T2, and DWI sequences obtained through the pancreas and abdomen on an MR scanner. Dedicated 2D and 3D MRCP sequences obtained through the biliary and pancreatic ducts. Examination was performed without intravenous contrast. FINDINGS: Lung Bases: There is redemonstration of severe elevation of the right hemidiaphragm with associated right basilar atelectasis. Liver: The right hepatic lobe is displaced superiorly due to elevation of the right hemidiaphragm. However, overall hepatic size and signal characteristics are within normal limits. There is no evidence of fat or iron deposition. No focal liver lesions are demonstrated. Gallbladder: Gallbladder is surgically absent. Bile Ducts: Common bile duct measures 7 mm, which is within normal limits for the postcholecystectomy state (501, image 26). No choledocholithiasis demonstrated. There is mild prominence of the intrahepatic bile ducts. There appears to be minimal focal ectasia of any intrahepatic bile duct in segment 8 (series 901, image 47), which is similar to prior examinations. Pancreas: There are postsurgical changes from distal pancreatectomy. The remnant pancreas demonstrates pancreas divisum configuration with the main pancreatic duct coursing anterior to the common bile duct (series 901, image 21). No peripancreatic edema is demonstrated. On the prior examination, there was an equivocal focus of enhancement along the pancreatectomy margin. This is not well evaluated on this noncontrast examination. However, no areas of T2 signal hyperintensity or definite restricted diffusion are demonstrated in this region. Spleen: Surgically absent. Kidneys: There are 2 right renal cysts. These include a 12 mm cyst in the upper pole (series 401, image 28) and a suspected 10 mm parapelvic cyst in the interpolar region (series 401, image 28). Previously described T1 hyperintense nodule in the upper pole of the left kidney is not identified. However, it should be noted that the T1 precontrast sequence is limited by wrap artifact. Adrenals: No nodules. Bowel: No evidence of bowel obstruction or inflammation in the visualized portions. There appears to be postsurgical changes from right hemicolectomy. Retroperitoneum: No abdominal aortic aneurysm. No retroperitoneal adenopathy. Other: Small fat-containing ventral hernias are demonstrated (series 801, image 10). IMPRESSION: 1. Noncontrast examination was performed, which is not optimized for detection of locally recurrent or metastatic neoplasm. If noncontrast examination was ordered in error, patient could be recalled for additional imaging without and with IV contrast. 2. Postsurgical changes from distal pancreatectomy and splenectomy. No focus of signal abnormality is demonstrated along the surgical margin to correspond to the focus of equivocal enhancement seen on previous MRI. However, as described above, this noncontrast examination is not optimized for detection of locally recurrent neoplasm. 3. No finding suspicious for metastatic disease in the abdomen by noncontrast MRI. 4. Findings of pancreas divisum. 5. Similar configuration of the bile ducts with mild prominence of the intrahepatic bile ducts. Findings are suspected to represent postcholecystectomy reservoir effect. 6. Redemonstration of elevation of the right hemidiaphragm. RADIA
== END 2019-07-10 07:01 | disposition home or self-care (01) ==
LOC: DI 07:00
PROVIDERS: ATTEND Internal Medicine Hematology & Oncology
DX: Z85.89 Personal history of malignant neoplasm of other organs and systems (principal); Z85.07 Personal history of malignant neoplasm of pancreas; Z90.411 Acquired partial absence of pancreas; Z90.81 Acquired absence of spleen; J98.6 Disorders of diaphragm
CPT/HCPCS: 74181

== ENCOUNTER 2019-09-03 08:00 | Outpatient (CLI) | payer MEDICARE, OTHER | END 2019-09-03 23:59 | disposition home or self-care (01) | LOC: LAB.R 08:00 | PROVIDERS: ATTEND Internal Medicine Gastroenterology | DX: K50.00 Crohn's disease of small intestine without complications (principal); R19.7 Diarrhea, unspecified | CPT/HCPCS: 87493 ==

== ENCOUNTER 2019-11-17 13:35 | Outpatient (CLI) | payer MEDICARE, OTHER ==
[2019-11-17] MEDS ORDERED: GADOBUTROL 10 MMOL/10 ML VIAL IVP ONE (15:37)
--- NOTE | 2019-11-18 17:53 | MRI Report ---
PROCEDURE: Abdomen W/WO INDICATIONS: History of pancreatic cancer. CONTRAST: IV CONTRAST: Gadavist ml: 10 TECHNIQUE: Coronal ultra fast SE, axial 2D spoiled GE in- and [id number]; axial breath-hold T2 fast SE. Dynam ic axial ultra fast GE during the administration of contrast; post-contrast coronal ultra fast GE or 2D spoiled GE with fat saturation from the hepatic dome to the iliac crests. Optional diffusion weig hted imaging and ADC may be performed. COMPARISON: MR pelvis 07/10/2019. CT abdomen and pelvis 03/26/2017. FINDINGS: Image quality: Fair. Image quality degraded by artifact. Lung bases: No basal pleural effusions. Heart size is normal. Similar asymmetric elevation of the r ight hemidiaphragm. Solid organs: Post distal pancreatectomy. No suspicious enhancement identified at the resection site. No pancreatic ductal dilatation. Post splenectomy. Noncirrhotic liver morphology. No significant steatosis. No suspicious focal lesion or enhancement. Gallbladder is absent. No significant biliary dilatation. CBD measures 7 mm. No adr enal nodules. Both kidneys demonstrate normal size and enhancement, without hydronephrosis. Simple right renal cyst. Nodes and vessels: No retroperitoneal or mesenteric adenopathy by size criteria. Aorta and inferior vena cava are normal in size. Bowel and peritoneum: Unenhanced bowel loops are normal in caliber. No free fluid. Bones and soft tissues: No ventral hernias. Bone marrow is normal in overall signal. IMPRESSION: Image quality is again degraded by artifact. 1. No suspicious enhancement identified at the distal pancreatectomy site. Post splenectomy. 2. No suspicious adenopathy seen. 3. No significant pancreatic ductal dilatation. 4. No suspicious hepatic lesions. Consider further follow-up examinations with multiphase CT pancreas given the artifact seen on the MR I exams. Reviewed by: Rakan Cosme MD on 11/18/2019 5:51 PM PDT Approved by: Rakan Cosme MD on 11/18/2019 5:51 PM PDT Station ID: [id number]
== END 2019-11-17 13:36 | disposition home or self-care (01) ==
LOC: DI 13:35
PROVIDERS: ATTEND Internal Medicine Hematology & Oncology
DX: D3A.8 Other benign neuroendocrine tumors (principal); Z08 Encounter for follow-up examination after completed treatment for malignant neoplasm; Z85.89 Personal history of malignant neoplasm of other organs and systems; Z85.07 Personal history of malignant neoplasm of pancreas
CPT/HCPCS: 74183; A9585

== ENCOUNTER 2020-09-29 23:16 | Outpatient (CLI) | payer MEDICARE | END 2020-09-29 23:17 | disposition critical access hospital (66) | LOC: EMS 23:16 | DX: S09.91XA Unspecified injury of ear, initial encounter (principal); M54.2 Cervicalgia; M54.9 Dorsalgia, unspecified; M79.602 Pain in left arm; W10.9XXA Fall (on) (from) unspecified stairs and steps, initial encounter; Y92.59 Other trade areas as the place of occurrence of the external cause | CPT/HCPCS: A0425; A0429 ==

== ENCOUNTER 2020-09-29 23:35 | Emergency (ER) | payer MEDICARE ==
[2020-09-29 23:57] LABS: BASOPHILS # (AUTO) 0.1 10^3/uL (0.0-0.1); BASOPHILS % (AUTO) 0.5 %; EOSINOPHILS % (AUTO) 0.1 %; HCT - HEMATOCRIT 39.3 % (37.0-47.0); HGB - HEMOGLOBIN 12.3 g/dL (12.0-16.0); LYMPHOCYTES # (AUTO) 2.3 10^3/uL (1.5-3.5); LYMPHOCYTES % (AUTO) 13.1 %; MEAN CORPUSCULAR HEMOGLOBIN 31.9 pg (27.0-31.0); MEAN CORPUSCULAR HGB CONC 31.3 g/dL (32.0-36.0); MEAN CORPUSCULAR VOLUME 101.8 fL (81.0-99.0); MEAN PLATELET VOLUME 9.6 fL (7.9-10.8); MONOCYTES # (AUTO) 0.8 10^3/uL (0.0-1.0); MONOCYTES % (AUTO) 4.3 %; NEUTROPHILS % (AUTO) 80.2 %; PLT - PLATELET COUNT 523 10^3/uL (130-450); RED BLOOD COUNT 3.86 10^6/uL (4.20-5.40); RED CELL DISTRIBUTION WIDTH 13.2 % (12.0-15.0); WHITE BLOOD COUNT 17.5 x10^3/uL (4.8-10.8)
[2020-09-29] MEDS ORDERED: IOVERSOL 320 100 ML VIAL IVP ONE (23:57)
[2020-09-30 00:07] LABS: ALBUMIN 3.9 g/dL (3.2-5.5); ALBUMIN/GLOBULIN RATIO 1.3 (1.0-2.2); CALCIUM 9.3 mg/dL (8.5-10.3); CREATININE 0.7 mg/dL (0.4-1.0); POTASSIUM 3.9 mmol/L (3.5-5.0); TOTAL PROTEIN 6.9 g/dL (6.7-8.2)
[2020-09-30] MEDS ORDERED: IOVERSOL 320 100 ML VIAL IVP ONE (00:39)
[2020-09-30] MEDS ORDERED: MORPHINE 2 MG/ML CARPUJECT IVP STA ×3 (01:12→02:30)
[2020-09-30 01:53] LABS: BILIRUBIN,URINE NEGATIVE (NEGATIVE); GLUCOSE, URINE (UA) NEGATIVE (NEGATIVE); KETONES,URINE (UA) NEGATIVE (NEGATIVE); LEUKOCYTE ESTERASE, URINE NEGATIVE (NEGATIVE); NITRITE,URINE NEGATIVE (NEGATIVE); OCCULT BLOOD,URINE NEGATIVE (NEGATIVE); PH,URINE 5.5 PH (5.0-7.5); PROTEIN,URINE NEGATIVE (NEGATIVE); UROBILINOGEN,URINE 0.2 (NORMAL) E.U./dL (NORMAL)
[2020-09-30 01:54] LABS: CLARITY,URINE CLEAR (CLEAR)
[2020-09-30] MEDS ORDERED: oxyCODONE 5 MG TABLET PO STA (02:30)
[2020-09-30 02:43] VITALS: BP 140/78
--- NOTE | 2020-09-30 07:22 | CT Report ---
PROCEDURE: HEAD WO INDICATIONS: fall, head injury TECHNIQUE: Noncontrast 4.5 mm thick angled axial sections acquired from the foramen magnum to the vertex. For r adiation dose reduction, the following was used: automated exposure control, adjustment of mA and/or kV according to patient size. COMPARISON: None FINDINGS: Image quality: Excellent. CSF spaces: Basal cisterns are patent. Small anterior right temporal arachnoid cyst. The ventricles are symmetric in size and shape. Brain: No intracranial bleeds or masses. There is cerebral volume loss for age, with resultant vent ricular and sulcal prominence. There are periventricular and deep white matter chronic small vessel ischemic changes. There is intracranial internal carotid artery atherosclerosis. Skull and face: Calvarium and visualized facial bones appear intact, without suspicious lesions. Mod erate-sized left parietal scalp hematoma. Sinuses: Visualized sinuses and mastoids are clear. IMPRESSION: No acute intracranial disease process. Reviewed by: Paradise Chin MD, PhD on 09/30/2020 7:21 AM PDT Approved by: Paradise Chin MD, PhD on 09/30/2020 7:21 AM PDT Station ID: [id number]
--- NOTE | 2020-09-30 08:01 | ED Physician Documentation ---
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 No: Abdomen, Back Pain level now: 8 Quality of pain: Pain Associated symptoms: Neck pain. No: LOC, AMS, Amnesia, Weakness, Dyspnea, Nausea / vomiting, Abdominal distension Symptoms improve with: Rest Worsens with: Movement Contributing factors: No: Anticoagulated, Intoxicated Recently seen: Not recently seen - Additional information Additional information: BIBA. patient became dizzy at top of flight of stairs, causing her to fall forward down the stairs. denies LOC, c/o left shoulder pain, left head and neck pain, left hip pain. she sustained left ear laceration. Review of Systems Constitutional: reports: Reviewed and negative Eyes: reports: Reviewed and negative Ears: reports: Ear pain Throat: reports: Reviewed and negative Cardiac: reports: Reviewed and negative Respiratory: reports: Reviewed and negative GI: reports: Reviewed and negative : reports: Reviewed and negative Skin: reports: Laceration (s) (left ear) Musculoskeletal: reports: Neck pain, Joint pain (left shoulder). denies: Back pain Neurologic: reports: Head injury. denies: Generalized weakness, Focal weakness, Numbness, Altered mental status, Headache, LOC PD PAST MEDICAL HISTORY - Past Medical History Cardiovascular: None Respiratory: Asthma, COPD, Other Neuro: Headaches Endocrine/Autoimmune: HyPOthyroidism GI: GERD, Crohn's disease : Incontinence, Frequency HEENT: Other Psych: Depression, Anxiety Musculoskeletal: Fibromyalgia, Rheumatoid arthritis Derm: None Other Past Medical History: dizziness, patient has pancreatic cancer - Past Surgical History Past Surgical History: Yes General: Cholecystectomy, Bowel surgery, Other /EMERGENCY DISPATCHER: section, Other HEENT: Cataracts Derm: Other - Present Medications Home Medications: Ambulatory Orders Medication Instructions Recorded Confirmed Albuterol 2.5 mg INH Q4H PRN 11/02/09/29/20 Budesonide/Formoterol Fumarate 10.2 gm IH BID 11/02/16 09/29/20 [Symbicort 160-4.5 Mcg Inhaler] DULoxetine [Cymbalta] 60 mg PO DAILY 11/02/16 09/29/20 Gabapentin 400 mg PO DAILY 11/02/16 09/29/20 Hydroxychloroquine [Plaquenil] 200 mg PO DAILY 11/02/16 09/29/20 Liothyronine [Cytomel] 5 mcg PO QDAC 11/02/16 09/29/20 Ondansetron HCl [Zofran] 4 mg PO Q6H PRN #20 tablet 11/02/16 09/29/20 Oxybutynin [Ditropan] 5 mg PO BID 11/02/16 09/29/20 modafiniL [Modafinil] 200 mg PO DAILY 11/02/16 09/29/20 oxyCODONE [Roxicodone] 10 mg PO Q6H 11/02/16 09/29/20 predniSONE [Prednisone] 10 mg PO DAILY 11/02/16 09/29/20 Levothyroxine Sodium 200 mcg PO DAILY 01/06/18 09/29/20 Digestive 8/L.acidoph/Pectin 1 each PO QDDINNER 09/30/20 09/30/20 [Digestive Enzymes Tablet] Duloxetine HCl [Cymbalta] 60 mg PO DAILY 09/30/20 09/30/20 Fluticasone Propion/Salmeterol 1 each IH PRN PRN 09/30/20 09/30/20 [Wixela 500-50 Inhub] Hydroxychloroquine [Plaquenil] 200 mg PO DAILY 09/30/20 09/30/20 Levothyroxine [Synthroid] 200 mcg DAILY 09/30/20 09/30/20 Olopatadine HCl [Pataday] 2.5 ml OP DAILY 09/30/20 09/30/20 Omeprazole 80 mg PO PRN PRN 09/30/20 09/30/20 - Allergies Allergies/Adverse Reactions: Allergies Allergy/AdvReac Type Severity Reaction Status Date / Time Penicillins Allergy Cramps Verified 09/29/20 23:39 - Social History Does the pt smoke?: No Smoking Status: Never smoker Does the pt drink ETOH?: No Does the pt have substance abuse?: No - Immunizations Immunizations are current?: Yes Immunizations: TDAP current <10years - POLST Patient has POLST: No PD ED PE NORMAL - Vitals Vital signs reviewed: Yes - General General: Alert and oriented X 3, No acute distress, Well developed/nourished - HEENT HEENT: PERRL, EOMI, Moist mucous membranes - Neck Neck: Supple, no meningeal sign, No bony TTP - Cardiac Cardiac: RRR, No murmur - Respiratory Respiratory: No respiratory distress, Clear bilaterally - Abdomen Abdomen: Normal bowel sounds, Soft, Non tender, Non distended - Derm Derm: Normal color, Warm and dry - Extremities Extremities: No deformity - Neuro Neuro: Alert and oriented X 3, emergency nurse 2-12 intact, No motor deficit, No sensory deficit Eye Opening: Spontaneous Motor: Obeys Commands Verbal: Oriented GCS Score: 15 - Psych Psych: Normal mood, Normal affect PD ED PE EXPANDED - HEENT HEENT Visual: 1 - laceration (Thin flap laceration with attached segment at antihelix) - Extremities Extremities: Tenderness, Limited ROM, Left shoulder Results - Vitals Vitals: Oxygen O2 Source Nasal cannula Oxygen Flow Rate 2 - Labs Labs: Laboratory Tests 09/29/20 09/29/20 09/30/20 23:45 23:45 01:50 WBC 17.5 H RBC 3.86 L Hgb 12.3 Hct 39.3 MCV 101.8 H MCH 31.9 H MCHC 31.3 L RDW 13.2 Plt Count 523 H MPV 9.6 Neut # (Auto) 14.0 H Lymph # (Auto) 2.3 [place] # (Auto) 0.8 Eos # (Auto) 0.0 Baso # (Auto) 0.1 Absolute Nucleated RBC 0.00 Nucleated RBC % 0.0 Sodium 139 Potassium 3.9 Chloride 94 L Carbon Dioxide 37 H Anion Gap 8.0 BUN 13 Creatinine 0.7 Estimated GFR (MDRD) 83 L Glucose 102 H Calcium 9.3 Total Bilirubin 1.0 AST 31 ALT 28 Alkaline Phosphatase 92 Total Protein 6.9 Albumin 3.9 Globulin 3.0 Albumin/Globulin Ratio 1.3 Lipase 43 Urine Color YELLOW Urine Clarity CLEAR Urine pH 5.5 Ur Specific [place] 1.010 Urine Protein NEGATIVE Urine Glucose (UA) NEGATIVE Urine Ketones NEGATIVE Urine Occult Blood NEGATIVE Urine Nitrite NEGATIVE Urine Bilirubin NEGATIVE Urine Urobilinogen 0.2 (NORMAL) Ur Leukocyte Esterase NEGATIVE Ur Microscopic Review NOT INDICATED Urine Culture Comments NOT INDICATED - Rads (name of study) CTH Radiology: Prelim report reviewed, See rad report CT cervical spine Radiology: Prelim report reviewed, See rad report CT Abd/pelvis Radiology: Prelim report reviewed, See rad report CT chest Radiology: Prelim report reviewed, See rad report Procedures - Laceration (location) Ear left Length in cm: 1 Wound type: Curved, Flap, Clean, Exposure of cartilage Neurovascular status: Sensory intact Wound preparation: Irrigated copiously NS Skin layer closure: Dermabond Other: Patient tolerated well, No complications PD MEDICAL DECISION MAKING - ED course Complexity details: reviewed results, re-evaluated patient, considered differential, d/w patient, d/w family ED course: patient reported good relief of pain with doses of iv morphine and, prior to d/c, PO oxycodone. she remained AAOx3 during entire stay and was conversant and provided fast and appropriate answers. no neurologic deficit initially nor on repeat exams. ear laceration repaired with indermil. left shoulder placed in sling due to fracture of humeral head. also noted were left 10th rib fracture and mild superior endplate L5 deformity/fracture (without neurologic deficit on exam). results reviewed with patient and family (daughter in ED) and patient is comfortable with d/c home. Departure - Departure Disposition: 01 Home, Self Care Clinical Impression: Lumbar compression fracture, Shoulder fracture, left Rib fracture Qualifiers: Encounter type: initial encounter Rib fracture type: single rib Fracture type: closed Laterality: left Qualified Code(s): S22.32XA - Fracture of one rib, left side, initial encounter for closed fracture Laceration of ear Qualifiers: Encounter type: initial encounter Laterality: left Qualified Code(s): S01.312A - Laceration without foreign body of left ear, initial encounter Condition: Good Instructions: ED Fx Comp Vertebral, ED Fx Rib, ED Laceration Facial Skin Glue, ED Fx Shoulder, ED Sling Follow-Up: Jose Meng MD [Primary Care Provider] - Within 1 week Tai Ramos MD [Provider Admit Priv/Credential] - Discharge Date/Time: 09/30/20 03:05
--- NOTE | 2020-09-30 08:13 | CT Report ---
PROCEDURE: CERVICAL SPINE WO INDICATIONS: fall, neck pain TECHNIQUE: Noncontrast 3 mm thick sections acquired from the skull base to the T4 level. Sagittal and coronal r eformats were then constructed. For radiation dose reduction, the following was used: automated exp osure control, adjustment of mA and/or kV according to patient size. COMPARISON: None. FINDINGS: Image quality: Excellent. Bones: No fractures or dislocations. Visualized superior ribs are intact. Spine degenerative disc disease and facet arthropathy are noted. Soft tissues: Prevertebral soft tissues are normal in thickness. No paravertebral hematomas. No ap ical pneumothoraces. Thyroid gland is atrophied or absent. IMPRESSION: No fracture. No acute osseous lesion. If there is continued clinical concern for pathology, then MRI should be considered for further evaluation. . Reviewed by: Paradise Chin MD, PhD on 09/30/2020 8:12 AM PDT Approved by: Paradise Chin MD, PhD on 09/30/2020 8:12 AM PDT Station ID: [id number]
--- NOTE | 2020-09-30 09:29 | CT Report ---
PROCEDURE: CHEST W INDICATIONS: fall, left shoulder and left chest pain CONTRAST: IV CONTRAST: Optiray 320 ml: 100 PO CONTRAST: *NO PO CONTRAST TECHNIQUE: After the administration of intravenous contrast, 5 mm thick sections acquired from the pulmonary api joan to the posterior costophrenic angles. 7 mm thick coronal MIP reformats were acquired. For radia tion dose reduction, the following was used: automated exposure control, adjustment of mA and/or kV according to patient size. COMPARISON: CT of abdomen dated 03/26/2017. FINDINGS: Image quality: Excellent. Lungs and pleura: Moderate elevation of right hemidiaphragm is seen with adjacent right basilar atele ctasis. Biapical scarring is seen. No pleural effusions or pneumothorax. Central and peripheral airw ays are patent and normal in caliber. Mediastinum: Heart size is normal. No pericardial effusion. Mild atherosclerotic calcifications ar e seen in thoracic aorta and coronary vessels. No mediastinal or hilar adenopathy by size criteria. Thoracic aorta and central pulmonary arteries are normal in size. Esophagus is normal in caliber. N o hiatal hernia. Bones and chest wall: Comminuted and impacted fracture involving proximal left humeral shaft extendin g to greater and lesser tuberosity of left humeral head is seen. No gross acute rib fracture. Degener ative disc disease throughout thoracic spine is seen. No suspicious bony lesions. No vertebral body compression fractures. No axillary or supraclavicular adenopathy by size criteria. The thyroid is n ormal in size and there are no incidental findings.. Abdomen: Visualized upper abdominal solid organs appear normal. Upper abdominal bowel loops are nor mal in caliber. Gallbladder is surgically absent. IMPRESSION: 1. Chronic elevation of right hemidiaphragm and not significantly changed from prior CT study with co mpressive atelectasis of adjacent right lung base. Biapical scarring. No focal infiltrate, pleural e ffusion or pneumothorax. Airway is patent. 2. No mediastinal hematoma. Normal heart size. No pericardial effusion. 3. Acute comminuted and impacted left proximal humeral shaft fracture extending to involve greater an d lesser tuberosities of left humeral head. No gross acute rib fracture. No compression fracture or s pondylolisthesis in thoracic spine. Agree with preliminary reading. Reviewed by: Lenny Toth MD on 09/30/2020 9:27 AM PDT Approved by: Lenny Toth MD on 09/30/2020 9:27 AM PDT Station ID: [id number]
--- NOTE | 2020-09-30 09:41 | CT Report ---
PROCEDURE: Abdomen/Pelvis W INDICATIONS: fall, left pelvis/hip pain CONTRAST: IV CONTRAST: Optiray 320 ml: 100 PO CONTRAST: *NO PO CONTRAST TECHNIQUE: After the administration of IV contrast, 5 mm thick sections acquired from the diaphragms to the symp hysis. 5 mm thick coronal and sagittal reformats were acquired. For radiation dose reduction, the f ollowing was used: automated exposure control, adjustment of mA and/or kV according to patient size. COMPARISON: CT of abdomen and pelvis dated 03/26/2017 and 01/30/2017. MRI of abdomen dated 11/17/2019. FINDINGS: Image quality: Excellent. ABDOMEN: Lung bases: Elevation of right hemidiaphragm is seen with compressive atelectasis of adjacent right l caprice base. Heart size is normal. Solid organs: Liver is normal in size and enhancement. Hepatic steatosis is seen. Spleen is not vis ualized suggestive of prior splenectomy. Gallbladder is surgically absent Biliary system is non dila ismael. Pancreas enhances normally. No adrenal nodules. Kidneys demonstrate normal size and enhanceme nt, without hydronephrosis. Peritoneum and bowel: Bowel loops demonstrate normal wall thickness and caliber. No free fluid or a ir. Postsurgical changes are noted in right upper quadrant abdomen with surgical clips seen. Nodes and vessels: No retroperitoneal or mesenteric adenopathy by size criteria. Aorta and inferior vena cava are normal in size. Miscellaneous: No ventral hernias. PELVIS: Genitourinary: Bladder wall thickness is normal. Miscellaneous: No inguinal hernias or adenopathy. Bones: Slightly comminuted fracture involving left posterior 10th rib is seen. There is age indetermi nant anterior wedge compression deformity involving superior endplate of L5. Chronic grade 1 anteroli sthesis of L4 on L5 is seen. IMPRESSION: 1. Acute comminuted and nondisplaced left posterior 10th rib fracture. 2. Age indeterminant, likely acute superior endplate anterior wedge compression deformity at L5 level . No acute pelvic fracture or dislocation. 3. No acute solid organ injury is seen within abdomen or pelvis. No free fluid of free air. 4. Likely prior splenectomy. Hepatic steatosis. No significant discrepancies from preliminary reading. Reviewed by: Lenny Toth MD on 09/30/2020 9:39 AM PDT Approved by: Lenny Toth MD on 09/30/2020 9:39 AM PDT Station ID: [id number]
== END 2020-09-30 03:05 | disposition home or self-care (01) ==
LOC: EDUNIT# → ED 23:35 → SUPCPDRO 23:35 → ED 09-30 03:05
DX: S32.050A Wedge compression fracture of fifth lumbar vertebra, initial encounter for closed fracture (principal); S42.255A Nondisplaced fracture of greater tuberosity of left humerus, initial encounter for closed fracture; S42.265A Nondisplaced fracture of lesser tuberosity of left humerus, initial encounter for closed fracture; S22.32XA Fracture of one rib, left side, initial encounter for closed fracture; S01.312A Laceration without foreign body of left ear, initial encounter; S09.90XA Unspecified injury of head, initial encounter; M25.552 Pain in left hip; W10.9XXA Fall (on) (from) unspecified stairs and steps, initial encounter; Y92.009 Unspecified place in unspecified non-institutional (private) residence as the place of occurrence of the external cause; R42 Dizziness and giddiness; M50.30 Other cervical disc degeneration, unspecified cervical region
CPT/HCPCS: 12011; 36415; 70450; 71260; 72125; 74177; 80053; 81003; 83690; 85025; 96374; 96376; 99284; A9270; Q9967; 81001; 87086

== ENCOUNTER 2020-10-03 18:09 | Emergency (ER) | payer MEDICARE ==
[2020-10-03 18:22] VITALS: BP 128/97
[2020-10-03] MEDS ORDERED: LIDOCAINE PATCH 5% TOP STA (18:57)
--- NOTE | 2020-10-03 18:59 | ED Physician Documentation ---
PD HPI LOWER EXT INJURY - Stated complaint Stated Complaint: LEFT SIDE HIP PX - Chief complaint Chief Complaint: Ext Problem - History obtained from History obtained from: Patient, Family - Additional information Additional information: 69-year-old woman with chronic pain, COPD, fibromyalgia was seen by Dr. Alvarez 4 days ago after a fall down the stairs. She was to have found to have a lumbar vertebral compression fracture, a rib fracture, shoulder fracture she has been doubling up on her hydrocodone since then and notes that she has been hallucinating. Also is worried that we missed a hip fracture because she has left buttock pain. Review of Systems Constitutional: reports: Reviewed and negative Eyes: reports: Reviewed and negative Ears: reports: Reviewed and negative Nose: reports: Reviewed and negative Throat: reports: Reviewed and negative Cardiac: reports: Reviewed and negative PD PAST MEDICAL HISTORY - Past Medical History Past Medical History: Yes Cardiovascular: None Respiratory: Asthma, COPD, Other Neuro: Headaches Endocrine/Autoimmune: HyPOthyroidism GI: GERD, Crohn's disease : Incontinence, Frequency HEENT: Other Psych: Depression, Anxiety Musculoskeletal: Fibromyalgia, Rheumatoid arthritis Derm: None - Past Surgical History Past Surgical History: Yes General: Cholecystectomy, Bowel surgery, Other /TRIM MECHANIC: section, Other HEENT: Cataracts Derm: Other - Present Medications Home Medications: Ambulatory Orders Medication Instructions Recorded Confirmed Albuterol 2.5 mg INH Q4H PRN 11/02/16 09/29/20 Budesonide/Formoterol Fumarate 10.2 gm IH BID 11/02/16 09/29/20 [Symbicort 160-4.5 Mcg Inhaler] DULoxetine [Cymbalta] 60 mg PO DAILY 11/02/16 09/29/20 Gabapentin 400 mg PO DAILY 11/02/16 09/29/20 Hydroxychloroquine [Plaquenil] 200 mg PO DAILY 11/02/16 09/29/20 Liothyronine [Cytomel] 5 mcg PO QDAC 11/02/16 09/29/20 Ondansetron HCl [Zofran] 4 mg PO Q6H PRN #20 tablet 11/02/16 09/29/20 Oxybutynin [Ditropan] 5 mg PO BID 11/02/16 09/29/20 modafiniL [Modafinil] 200 mg PO DAILY 11/02/16 09/29/20 oxyCODONE [Roxicodone] 10 mg PO Q6H 11/02/16 09/29/20 predniSONE [Prednisone] 10 mg PO DAILY 11/02/16 09/29/20 Levothyroxine Sodium 200 mcg PO DAILY 01/06/18 09/29/20 Digestive 8/L.acidoph/Pectin 1 each PO QDDINNER 09/30/20 09/30/20 [Digestive Enzymes Tablet] Duloxetine HCl [Cymbalta] 60 mg PO DAILY 09/30/20 09/30/20 Fluticasone Propion/Salmeterol 1 each IH PRN PRN 09/30/20 09/30/20 [Wixela 500-50 Inhub] Hydroxychloroquine [Plaquenil] 200 mg PO DAILY 09/30/20 09/30/20 Levothyroxine [Synthroid] 200 mcg DAILY 09/30/20 09/30/20 Olopatadine HCl [Pataday] 2.5 ml OP DAILY 09/30/20 09/30/20 Omeprazole 80 mg PO PRN PRN 09/30/20 09/30/20 Lidocaine Patch 5% [Lidoderm Patch] 1 patch TOP DAILY PRN #10 patch 10/03/20 Meloxicam [Mobic] 7.5 mg PO BID PRN #20 tablet 10/03/20 - Allergies Allergies/Adverse Reactions: Allergies Allergy/AdvReac Type Severity Reaction Status Date / Time Penicillins Allergy Cramps Verified 10/03/20 18:16 - Social History Does the pt smoke?: No Smoking Status: Never smoker Does the pt drink ETOH?: No Does the pt have substance abuse?: No - Immunizations Immunizations are current?: Yes Immunizations: TDAP current <10years - POLST Patient has POLST: No PD ED PE NORMAL - Vitals Vital signs reviewed: Yes - General General: Alert and oriented X 3, No acute distress - HEENT HEENT: PERRL, EOMI - Extremities Extremities: Other (No pain with palpation of the left hip. No pain with internal or external rotation of left hip. She is tender in the left gluteus.) - Neuro Neuro: Alert and oriented X 3, Normal speech Results - Vitals Vitals: Vital Signs - 24 hr 10/03/20 18:16 Temperature 36.6 C Heart Rate 100 Respiratory 16 Rate Blood Pressure 128/97 H O2 Saturation 96 Oxygen O2 Source Room air - Rads (name of study) L hip XR Radiology: EMP read contemporaneously (Acute nondisplaced L pubic frx) PD MEDICAL DECISION MAKING - ED course ED course: 69-year-old woman with buttock pain, no clinical evidence of hip fracture. But does have nondisplaced pubic fracture. She is also doubled up on her 10 mg hydrocodone and is now hallucinating. Discussed with her that we would need to focus on multimodal pain management and add an NSAID and lidocaine patches, the most painful spot of all the injuries as the shoulder. We will try to get her off the double dose Hydrocodone so she is no longer hallucinating. Departure - Departure Disposition: 01 Home, Self Care Clinical Impression: Rib fracture Qualifiers: Encounter type: subsequent encounter Rib fracture type: single rib Fracture type: closed Laterality: left Fracture healing: with routine healing Qualified Code(s): S22.32XD - Fracture of one rib, left side, subsequent encounter for fracture with routine healing Shoulder fracture, left Qualifiers: Encounter type: subsequent encounter Fracture type: closed Fracture healing: with routine healing Qualified Code(s): S42.92XD - Fracture of left shoulder girdle, part unspecified, subsequent encounter for fracture with routine healing Pain of lower extremity Qualifiers: Laterality: left Qualified Code(s): M79.605 - Pain in left leg Pubic bone fracture Qualifiers: Encounter type: initial encounter Sublocation of pubis: unspecified portion of pubis Fracture type: closed Laterality: left Qualified Code(s): S32.502A - Unspecified fracture of left pubis, initial encounter for closed fracture Condition: Good Record reviewed to determine appropriate education?: Yes Instructions: ED Fx Rib Prescriptions: Lidocaine Patch 5% [Lidoderm Patch] 1 patch TOP DAILY PRN #10 patch PRN Reason: pain Meloxicam [Mobic] 7.5 mg PO BID PRN #20 tablet PRN Reason: Pain Comments: Follow-up with orthopedics as you are planning. Return for new or worsening symptoms. Try to get back to your regular dose of hydrocodone. Discharge Date/Time: 10/03/20 19:09
--- NOTE | 2020-10-03 21:00 | XRAY Report ---
PROCEDURE: Hip w/Pelvis 2-3V LT INDICATIONS: hip pain TECHNIQUE: AP pelvis with lateral view(s) of the bilateral hip(s). COMPARISON: None. FINDINGS: Bones: Displaced fracture involving the left pubic bone. Pelvic ring appears intact. No suspicious b rui lesions. Mild bilateral hip osseous hypertrophy. Lower lumbar spine degenerative disc disease and facet arthropathy Soft tissues: The visualized bowel gas pattern is normal. No suspicious soft tissue calcifications. Surgical clips noted in the right and left groin. IMPRESSION: 1. Acute, mildly displaced fracture of the body of the left pubic bone. 2. Mild bilateral hip osteoarthritis. Reviewed by: Paradise Chin MD, PhD on 10/03/2020 8:59 PM PDT Approved by: Paradise Chin MD, PhD on 10/03/2020 8:59 PM PDT Station ID: [id number]
== END 2020-10-03 19:09 | disposition home or self-care (01) ==
LOC: ED 18:09
DX: S32.592A Other specified fracture of left pubis, initial encounter for closed fracture (principal); S22.32XA Fracture of one rib, left side, initial encounter for closed fracture; S42.92XA Fracture of left shoulder girdle, part unspecified, initial encounter for closed fracture; S32.009A Unspecified fracture of unspecified lumbar vertebra, initial encounter for closed fracture; W10.9XXA Fall (on) (from) unspecified stairs and steps, initial encounter; M79.605 Pain in left leg; T40.2X1A Poisoning by other opioids, accidental (unintentional), initial encounter; R44.3 Hallucinations, unspecified; M16.0 Bilateral primary osteoarthritis of hip; M79.7 Fibromyalgia; J44.9 Chronic obstructive pulmonary disease, unspecified
CPT/HCPCS: 73502; 99283; A9270

== ENCOUNTER 2020-10-04 05:25 | Outpatient (CLI) | payer MEDICARE | END 2020-10-04 05:26 | disposition critical access hospital (66) | LOC: EMS 05:25 | DX: M25.512 Pain in left shoulder (principal) | CPT/HCPCS: A0425; A0429 ==

== ENCOUNTER 2020-10-04 05:42 | Emergency (ER) | payer MEDICARE ==
[2020-10-04] MEDS ORDERED: oxyCODONE 5 MG TABLET PO STA (06:08)
[2020-10-04] MEDS ORDERED: KETOROLAC 60 MG/2 ML VIAL IM STA (06:53)
--- NOTE | 2020-10-04 06:58 | ED Physician Documentation ---
History of Present Illness - Stated complaint Stated Complaint: LEFT SHOULDER PAIN - Chief complaint Chief Complaint: Ext Problem - History obtained from History obtained from: Patient, EMS - Additonal information Additional information: Patient comes emergency department chief complaint of pain after injuries and possible reinjury of left shoulder. Patient was seen several days ago after falling down a flight of stairs and found to have multiple fractures, including proximal humerus, left rib, possible lumbar vertebral, and pubic ramus. She was worked up extensively and found otherwise to have no other injuries. She came back yesterday for better pain control and because she began hallucinating after increasing her hydrocodone, which she takes is a chronic medication, to try to get better pain control. She was instructed at that time to return to her normal hydrocodone dose and was put on meloxicam and lidocaine patches. Patient states that last night, she was very uncomfortable and could not really get any sleep because of the discomfort. She states she has severe pain whenever she turns over or shifts position otherwise. When she got up to try to walk, she had a lot of pain in her pelvis and made it very difficult to walk. She states that she had taken her arm out of the sling to bathe, and when she let it hang down, she suddenly felt a "pop" in the left shoulder region and seems like her arm was just flaccid for a few minutes. She states that it has come back to its normal use, but that she has been afraid to do anything other than hold to her body since. No numbness or tingling in the hand. No weakness in the hand or fingers. Patient has been using her shoulder immobilizer. The patient had an appointment with her primary care physician scheduled for 11:00 today, but did not think she could make the trip to [place], so she canceled it. Patient states that her 2 adult children live at home with her and that they have been able to assist her in every way she needs. She is mainly come today to try to get better pain control and to see if there is any way to get a few assistive devices at home, including a bedside commode. No other complaints at this time. Review of Systems Ten Systems: 10 systems reviewed and negative Constitutional: reports: Reviewed and negative Eyes: reports: Reviewed and negative Ears: reports: Reviewed and negative Nose: reports: Reviewed and negative Throat: reports: Reviewed and negative Cardiac: reports: Reviewed and negative Respiratory: reports: Reviewed and negative GI: reports: Reviewed and negative : reports: Reviewed and negative Skin: reports: Reviewed and negative Musculoskeletal: reports: Back pain, Extremity pain Neurologic: reports: Focal weakness Psychiatric: reports: Hallucinations Endocrine: reports: Reviewed and negative Immunocompromised: reports: Reviewed and negative PD PAST MEDICAL HISTORY - Past Medical History Past Medical History: Yes Cardiovascular: None Respiratory: Asthma, COPD, Other Neuro: Headaches Endocrine/Autoimmune: HyPOthyroidism GI: GERD, Crohn's disease : Incontinence, Frequency HEENT: Other Psych: Depression, Anxiety Musculoskeletal: Fibromyalgia, Rheumatoid arthritis Derm: None - Past Surgical History Past Surgical History: Yes General: Cholecystectomy, Bowel surgery, Other /INTERVENTIONAL SALE CONSULTANT: section, Other HEENT: Cataracts Derm: Other - Present Medications Home Medications: Ambulatory Orders Medication Instructions Recorded Confirmed Albuterol 2.5 mg INH Q4H PRN 11/02/16 10/04/20 Budesonide/Formoterol Fumarate 10.2 gm IH BID 11/02/16 10/04/20 [Symbicort 160-4.5 Mcg Inhaler] DULoxetine [Cymbalta] 60 mg PO DAILY 11/02/16 10/04/20 Gabapentin 400 mg PO DAILY 11/02/16 10/04/20 Hydroxychloroquine [Plaquenil] 200 mg PO DAILY 11/02/16 10/04/20 Liothyronine [Cytomel] 5 mcg PO QDAC 11/02/16 10/04/20 Ondansetron HCl [Zofran] 4 mg PO Q6H PRN #20 tablet 11/02/16 10/04/20 Oxybutynin [Ditropan] 5 mg PO BID 11/02/16 10/04/20 modafiniL [Modafinil] 200 mg PO DAILY 11/02/16 10/04/20 oxyCODONE [Roxicodone] 10 mg PO Q6H 11/02/16 10/04/20 predniSONE [Prednisone] 10 mg PO DAILY 11/02/16 10/04/20 Levothyroxine Sodium 200 mcg PO DAILY 01/06/18 10/04/20 Digestive 8/L.acidoph/Pectin 1 each PO QDDINNER 09/30/20 10/04/20 [Digestive Enzymes Tablet] Duloxetine HCl [Cymbalta] 60 mg PO DAILY 09/30/20 10/04/20 Fluticasone Propion/Salmeterol 1 each IH PRN PRN 09/30/20 10/04/20 [Wixela 500-50 Inhub] Olopatadine HCl [Pataday] 2.5 ml OP DAILY 09/30/20 10/04/20 Omeprazole 80 mg PO PRN PRN 09/30/20 10/04/20 Lidocaine Patch 5% [Lidoderm Patch] 1 patch TOP DAILY PRN #10 patch 10/03/20 10/04/20 Meloxicam [Mobic] 7.5 mg PO BID PRN #20 tablet 10/03/20 10/04/20 HYDROcod/ACETAM 5/325 [[place] 5/325] 1 - 2 tablet PO Q6H PRN #14 tablet 10/04/20 - Allergies Allergies/Adverse Reactions: Allergies Allergy/AdvReac Type Severity Reaction Status Date / Time Penicillins Allergy Cramps Verified 10/05/20 18:50 - Social History Does the pt smoke?: No Smoking Status: Never smoker Does the pt drink ETOH?: No Does the pt have substance abuse?: No - Immunizations Immunizations are current?: Yes Immunizations: TDAP current <10years - POLST Patient has POLST: No PD ED PE NORMAL - Vitals Vital signs reviewed: Yes - General General: Alert and oriented X 3, No acute distress, Well developed/nourished - HEENT HEENT: Atraumatic, PERRL, EOMI, Moist mucous membranes - Neck Neck: Supple, no meningeal sign - Cardiac Cardiac: RRR, No murmur, Strong equal pulses (All 4 extremities.) - Respiratory Respiratory: No respiratory distress, Clear bilaterally - Abdomen Abdomen: Soft, Non tender, Non distended - Derm Derm: Warm and dry, Other (Extensive ecchymosis extending from left shoulder and distally down left upper extremity. Moderate associated edema) - Extremities Extremities: No deformity, Other (Moderate edema of left upper extremity proximally, as noted above. No edema of wrist or hand.) - Neuro Neuro: Alert and oriented X 3, copy and print associate 2-12 intact, No motor deficit, No sensory deficit, Normal speech - Psych Psych: Normal mood, Normal affect Results - Vitals Vitals: Oxygen O2 Source Nasal cannula - Rads (name of study) L shoulder XR Radiology: Final report received, EMP read indepedently, See rad report (Continued finding of impacted, comminuted proximal humeral fracture. 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 Left shoulder x-ray was obtained to evaluate the patient's Fracture in the setting of the pop and change in use she had noticed this morning. This was compared to the AP and axial CT images from several days ago, and continue to show an impacted humeral neck fracture which did not appear significantly changed from previously. I discussed with the patient that I would write her prescription for the bedside commode as well as some lift straps that her kids can use to help get her up and out of bed. The patient already has a walker at home, though it may be difficult to use this with the left shou lder fracture, and probably not advisable at this time. I discussed with the patient that his very important that she does see her primary care physician in a timely manner, she will most likely need to have some physical therapy, once her injuries are better healed. It would also be helpful for her primary care physician to be on board to help with any adjustments to her home pain medication regimen, especially given the underlying fibromyalgia and chronic narcotic regimen. Patient has also been given orthopedics follow-up information for any specific concerns related to the fractures themselves. For now, I have discussed with the patient that the hallucinations, if mild, may be something that she will have to tolerate in order to achieve the objective of better pain control. If these become significantly worse and/or result in significant behavioral disturbance, then other options may need to be considered. Departure - Departure Disposition: 01 Home, Self Care Clinical Impression: Proximal humerus fracture Rib fracture Qualifiers: Encounter type: subsequent encounter Rib fracture type: single rib Fracture type: closed Laterality: left Fracture healing: with routine healing Qualified Code(s): S22.32XD - Fracture of one rib, left side, subsequent encounter for fracture with routine healing Pelvic fracture Qualifiers: Encounter type: subsequent encounter Pelvic bone location: pubis Sublocation of pubis: unspecified portion of pubis Fracture type: closed Laterality: left Fracture healing: with routine healing Qualified Code(s): S32.502D - Unspecified fracture of left pubis, subsequent encounter for fracture with routine healing Condition: Stable Instructions: Pain Management Post Surg, ED Fx Upper Ext Prescriptions: HYDROcod/ACETAM 5/325 [[place] 5/325] 1 - 2 tablet PO Q6H PRN #14 tablet PRN Reason: Pain Comments: Your shoulder has been x-rayed today and does not show a significant change from the views that we obtained on your chest CT. Unfortunately, it will take some weeks for all of these fractures to heal, and though each one is expected to heal well on its own, without further intervention, it will unfortunately be a period of some degree of pain and limited function. If the hydrocodone is working to control your pain at an increased dose, along with the medications you were prescribed yesterday, this may be the best solution. Although this does seem to be giving you somewhat of hallucinatory side effects, as long as they remain stable and do not worsen, this may just be something that will have to be tolerated until you are able to cut your dose down again. However, if the symptoms escalate, and begin to create behavioral disturbances or other severely unpleasant experiences related to that hallucinations, then we may need to have a different pain plan in place. It is very important that you follow both with orthopedics regarding your shoulder and with your primary care physician to set up physical therapy for a couple weeks from now, once you are healed little more. This will help to mobilize some of the inflammation and swelling, and will also help you to overcome the decreased mobility resulting from pain and stiffness. The sooner you are able to get moving again, once it is okay to do so, the better will be for your function. Please call your primary care physician's office as soon as you get home to set up a new appointment. There are a number of assistive devices as far as getting up to a standing position from a sitting or laying position, and these can be found via [employer]. One that may be helpful to you and your family is the [employer] Aide Transfer Sling, which is available on [employer]. Medical supply stores or dedicated pharmacies such as [facility] or [facility] will also have similar devices that can either be purchased or rented. Discharge Date/Time: 10/04/20 08:39
[2020-10-04 08:02] VITALS: BP 132/64
--- NOTE | 2020-10-04 08:11 | XRAY Report ---
PROCEDURE: Shoulder 3 View LT INDICATIONS: reinjury/pain/altered mobility TECHNIQUE: 3 views of the shoulder were acquired. COMPARISON: None. FINDINGS: Bones: Acute impacted fracture through surgical neck/proximal shaft of left humerus is seen with frac ture line extending to involve both greater and lesser tuberosities. There is approximately 2.4 cm ov erlapping at fracture site. Approximately 1 cm lateral displacement of the greater tuberosity fragmen t is also seen. No dislocation. Moderate acromioclavicular joint and glenohumeral joint osteoarthriti c changes are seen. No suspicious bony lesions. Visualized ribs appear intact. Soft tissues: No suspicious soft tissue calcifications. IMPRESSION: 1. Acute comminuted and impacted proximal humeral shaft/surgical neck fracture extending to involve g reater and lesser tuberosities. Laterally displaced greater tuberosity fragment. 2. No dislocation. Moderate shoulder joint osteoarthritis. No significant discrepancies from preliminary reading. Reviewed by: Lenny Toth MD on 10/04/2020 8:10 AM PDT Approved by: Lenny Toth MD on 10/04/2020 8:10 AM PDT Station ID: [id number]
== END 2020-10-04 08:39 | disposition home or self-care (01) ==
LOC: EDUNIT# → ED 05:42
DX: S42.212A Unspecified displaced fracture of surgical neck of left humerus, initial encounter for closed fracture (principal); S22.32XA Fracture of one rib, left side, initial encounter for closed fracture; S32.502A Unspecified fracture of left pubis, initial encounter for closed fracture; W10.9XXA Fall (on) (from) unspecified stairs and steps, initial encounter; R44.3 Hallucinations, unspecified; M19.012 Primary osteoarthritis, left shoulder
CPT/HCPCS: 73030; 96372; 99283; 99284; A9270

== ENCOUNTER 2020-10-05 18:22 | Outpatient (CLI) | payer MEDICARE | END 2020-10-05 18:23 | disposition critical access hospital (66) | LOC: EMS 18:22 | DX: Z74.2 Need for assistance at home and no other household member able to render care (principal) | CPT/HCPCS: A0425; A0429 ==

== ENCOUNTER 2020-10-05 18:41 | Observation (INO) | payer MEDICARE ==
--- OUTSIDE RECORDS SUMMARY | 2020-10-05 18:51 | EXTERNAL MEDICAL SUMMARY RPT | Continuity of Care Document ---
:1950 Demographics Phone Unavailable Preferred Language Unknown Marital Status Unknown L[employer] Affiliation Unknown Race Unknown Ethnic Group Unknown Author Organization [facility] Address [address] [place] [address] Phone Allergies Encounters Medications Problems Results
--- NOTE | 2020-10-05 18:58 | ED Physician Documentation ---
History of Present Illness - Stated complaint Stated Complaint: DEHYDRATION - Chief complaint Chief Complaint: General - History obtained from History obtained from: Patient (limited contribution to HPI/ROS due to drowsy, difficult to keep her awake), Family (at bedside) - History of Present Illness Timing: How many days ago (6) Improved by: rest Worsened by: movement (LLE, left shoulder), attempts to bear weight on LLE Associated symptoms: decreased responsiveness - Additonal information Additional information: patient was T+R from this ED 6 days ago (09/29/20) after fall down flight of stairs at home. I was the evaluating physician at that time, and testing demonstrated left shoulder fracture, left 10th rib fracture, L5 superior endplate compression fracture that appeared acute (per radiologist's interpretation). She also had left ear laceration that I repaired with tissue a dhesive. She also had left hip pain but CT A/P (on which bilateral hips and bony pelvis were visualized). Her pain was adequately controlled at the time with morphine (required repeat doses) and PO oxycodone. She returned 10/03 due to worsening left hip/left buttock pain and plain film xrays demonstrated a previously undetected left pubic bone fracture. She was given/prescribed lidocaine patches as well as meloxicam. She then returned yesterday, 10/04, for inadequately controlled pain of both the left shoulder and left hip area, but she was again able to be discharged back home. She returns at this time with HPI provided mostly by family member at bedside due to patient's somnolence. The family member says that all day today, patient has exhibited gradually decreasing level of responsiveness with associated decreased PO intake (solids; he has not perceived decreased intake of liquids today). He says patient has not taken her prescribed hydrocodone for approximately 12 hours, and has missed doses of other prescribed medications today due to her being too drowsy to do so; this is not typical behavior for her per family, and when I saw patient on 09/29/20, as well as briefly yesterday at end of my shift when she first arrived that morning, she was AAOx3, conversant and provided rapid answers to questions, joking at times. Family member says they have not been able to get patient out of bed for most of the day today and are no longer able to comfortably provide basic care such as toileting and keeping up with having patient take her regularly prescribed medications Review of Systems Unable to obtain: Other (limited due to drowsiness, difficult keeping patient awake) Constitutional: denies: Fever Eyes: denies: Decreased vision Cardiac: denies: Chest pain / pressure Respiratory: denies: Dyspnea GI: denies: Vomiting Musculoskeletal: reports: Back pain Neurologic: reports: Generalized weakness, Altered mental status. denies: Focal weakness, Numbness PD PAST MEDICAL HISTORY - Past Medical History Cardiovascular: None Respiratory: Asthma, COPD, Other Neuro: Headaches Endocrine/Autoimmune: HyPOthyroidism GI: GERD, Crohn's disease : Incontinence, Frequency HEENT: Other Psych: Depression, Anxiety Musculoskeletal: Fibromyalgia, Rheumatoid arthritis Derm: None - Past Surgical History Past Surgical History: Yes General: Cholecystectomy, Bowel surgery, Other /MENTALLY IMPAIRED TEACHER: section, Other HEENT: Cataracts Derm: Other - Present Medications Home Medications: Ambulatory Orders Medication Instructions Recorded Confirmed Albuterol 2.5 mg INH Q4H PRN 11/02/16 10/04/20 Budesonide/Formoterol Fumarate 10.2 gm IH BID 11/02/16 10/04/20 [Symbicort 160-4.5 Mcg Inhaler] DULoxetine [Cymbalta] 60 mg PO DAILY 11/02/16 10/04/20 Gabapentin 400 mg PO DAILY 11/02/16 10/04/20 Hydroxychloroquine [Plaquenil] 200 mg PO DAILY 11/02/16 10/04/20 Liothyronine [Cytomel] 5 mcg PO QDAC 11/02/16 10/04/20 Ondansetron HCl [Zofran] 4 mg PO Q6H PRN #20 tablet 11/02/16 10/04/20 Oxybutynin [Ditropan] 5 mg PO BID 11/02/16 10/04/20 modafiniL [Modafinil] 200 mg PO DAILY 11/02/16 10/04/20 oxyCODONE [Roxicodone] 10 mg PO Q6H 11/02/16 10/04/20 predniSONE [Prednisone] 10 mg PO DAILY 11/02/16 10/04/20 Levothyroxine Sodium 200 mcg PO DAILY 01/06/18 10/04/20 Digestive 8/L.acidoph/Pectin 1 each PO QDDINNER 09/30/20 10/04/20 [Digestive Enzymes Tablet] Duloxetine HCl [Cymbalta] 60 mg PO DAILY 09/30/20 10/04/20 Fluticasone Propion/Salmeterol 1 each IH PRN PRN 09/30/20 10/04/20 [[place]ela 500-50 Inhub] Hydroxychloroquine [Plaquenil] 200 mg PO DAILY 09/30/20 10/04/20 Levothyroxine [Synthroid] 200 mcg DAILY 09/30/20 10/04/20 Olopatadine HCl [Pataday] 2.5 ml OP DAILY 09/30/20 10/04/20 Omeprazole 80 mg PO PRN PRN 09/30/20 10/04/20 Lidocaine Patch 5% [Lidoderm Patch] 1 patch TOP DAILY PRN #10 patch 10/03/20 10/04/20 Meloxicam [Mobic] 7.5 mg PO BID PRN #20 tablet 10/03/20 10/04/20 HYDROcod/ACETAM 5/325 [[place] 5/325] 1 - 2 tablet PO Q6H PRN #14 tablet 10/04/20 - Allergies Allergies/Adverse Reactions: Allergies Allergy/AdvReac Type Severity Reaction Status Date / Time Penicillins Allergy Cramps Verified 10/05/20 18:50 - Social History Does the pt smoke?: No Smoking Status: Never smoker Does the pt drink ETOH?: No Does the pt have substance abuse?: No - Immunizations Immunizations are current?: Yes Immunizations: TDAP current <10years - POLST Patient has POLST: No PD ED PE NORMAL - Vitals Vital signs reviewed: Yes - General General: No acute distress, Well developed/nourished - HEENT HEENT: PERRL, Other (left ear laceration: wound edges remain approximated and there is no erythema nor swelling) - Neck Neck: No bony TTP - Cardiac Cardiac: No murmur - Respiratory Respiratory: No respiratory distress, Clear bilaterally - Abdomen Abdomen: Soft, Non tender, Non distended - Derm Derm: Other (LUE circumferential echymosis from shoulder to elbow) - Extremities Extremities: Other (LUE edema) - Neuro Eye Opening: To Voice Motor: Obeys Commands (simple commands, briefly and often requires repeat instruction) PD ED PE EXPANDED - General General: Lethargic (opens eyes briefly but only when given repeated instruction to do so; repeatedly falls asleep rapidly. she eventually remembers me and even remembers my name.) - HEENT HEENT: Dry mucous membranes - Cardiac Cardiac: Tachy, Regular Rhythm Results - Vitals Vitals: Vital Signs - 24 hr 10/05/20 10/05/20 10/05/20 18:50 20:30 22:00 Temperature 37 C Heart Rate 113 H 113 H 95 Respiratory 26 H 18 18 Rate Blood Pressure 158/86 H 154/79 H 152/81 H O2 Saturation 96 96 96 Oxygen O2 Source Room air - Labs Labs: Laboratory Tests 10/05/20 10/05/20 10/05/20 19:08 19:08 19:08 WBC 12.5 H RBC 3.05 L Hgb 10.1 L Hct 30.8 L MCV 101.0 H MCH 33.1 H MCHC 32.8 RDW 14.4 Plt Count 507 H MPV 9.1 Neut # (Auto) 10.5 H Lymph # (Auto) 1.0 L [place] # (Auto) 0.7 Eos # (Auto) 0.2 Baso # (Auto) 0.1 Absolute Nucleated RBC 0.89 Nucleated RBC % 7.1 Sodium 134 L Potassium 3.9 Chloride 93 L Carbon Dioxide 30 Anion Gap 11.0 BUN 9 Creatinine 0.4 Estimated GFR (MDRD) 158 Glucose 85 Lactic Acid Calcium 7.9 L Total Bilirubin 1.6 H AST 23 ALT 26 Alkaline Phosphatase 84 Total Protein 5.7 L Albumin 2.9 L Globulin 2.8 Albumin/Globulin Ratio 1.0 Lipase 17 L TSH < 0.08 L Urine Color Urine Clarity Urine pH Ur Specific [place] Urine Protein Urine Glucose (UA) Urine Ketones Urine Occult Blood Urine Nitrite Urine Bilirubin Urine Urobilinogen Ur Leukocyte Esterase Ur Microscopic Review Urine Culture Comments Nasal Adenovirus (PCR) Nasal B. parapertussis DNA (PCR) Nasal Coronavir 229E PCR Nasal Coronavir HKU1 PCR Nasal Coronavir NL63 PCR Nasal Coronavir OC43 PCR Nasal Enterovir/Rhinovir PCR Nasal Influenza B PCR Nasal Influenza A PCR Nasal Parainfluen 1 PCR Nasal Parainfluen 2 PCR Nasal Parainfluen 3 PCR Nasal Parainfluen 4 PCR Nasal RSV (PCR) Nasal B.pertussis DNA PCR Nasal C.pneumoniae (PCR) [place] Human Metapneumo PCR Nasal M.pneumoniae (PCR) Nasal SARS-CoV-2 (PCR) 10/05/20 10/05/20 10/05/20 19:56 20:08 20:18 WBC RBC Hgb Hct MCV MCH MCHC RDW Plt Count MPV Neut # (Auto) Lymph # (Auto) [place] # (Auto) Eos # (Auto) Baso # (Auto) Absolute Nucleated RBC Nucleated RBC % Sodium Potassium Chloride Carbon Dioxide Anion Gap BUN Creatinine Estimated GFR (MDRD) Glucose Lactic Acid 0.8 Calcium Total Bilirubin AST ALT Alkaline Phosphatase Total Protein Albumin Globulin Albumin/Globulin Ratio Lipase TSH Urine Color YELLOW Urine Clarity CLEAR Urine pH 6.5 Ur Specific [place] 1.020 Urine Protein NEGATIVE Urine Glucose (UA) NEGATIVE Urine Ketones >=80 H Urine Occult Blood NEGATIVE Urine Nitrite NEGATIVE Urine Bilirubin NEGATIVE Urine Urobilinogen 0.2 (NORMAL) Ur Leukocyte Esterase NEGATIVE Ur Microscopic Review NOT INDICATED Urine Culture Comments NOT INDICATED Nasal Adenovirus (PCR) NOT DETECTED Nasal B. parapertussis DNA (PCR) NOT DETECTED Nasal Coronavir 229E PCR NOT DETECTED Nasal Coronavir HKU1 PCR NOT DETECTED Nasal Coronavir NL63 PCR NOT DETECTED Nasal Coronavir OC43 PCR NOT DETECTED Nasal Enterovir/Rhinovir PCR NOT DETECTED Nasal Influenza B PCR NOT DETECTED Nasal Influenza A PCR NOT DETECTED Nasal Parainfluen 1 PCR NOT DETECTED Nasal Parainfluen 2 PCR NOT DETECTED Nasal Parainfluen 3 PCR NOT DETECTED Nasal Parainfluen 4 PCR NOT DETECTED Nasal RSV (PCR) NOT DETECTED Nasal B.pertussis DNA PCR NOT DETECTED Nasal C.pneumoniae (PCR) NOT DETECTED [place] Human Metapneumo PCR NOT DETECTED Nasal M.pneumoniae (PCR) NOT DETECTED Nasal SARS-CoV-2 (PCR) NOT DETECTED - Rads (name of study) CT head Radiology: Prelim report reviewed, See rad report PD MEDICAL DECISION MAKING - ED course Complexity details: reviewed old records, reviewed results, re-evaluated patient, considered differential, d/w patient, d/w family ED course: patient's somnolence on my evaluation is markedly different than when I evaluated her 09/29/20, when she was awake, alert, and rapid with conversation. When she was in the ED yesterday morning at the end of my shift, I stopped in briefly to tell her the oncoming ED physician would be evaluating her, and patient was again AAOx3 and rapid and appropriate with conversation at that time. Tonight, she is very drowsy and repeatedly falls asleep rapidly. She has tachycardia to 110s despite being asleep and in no apparent distress. Family is having difficulty continuing to care for patient and today have been unable to effectively care for basic needs such as toileting and getting patient to take her regularly scheduled medications. Repeat CTH does not show acute/concerning findings. She is given IV fluids. Blood test results are reassuring but she does not return to baseline mental status during ED stay and thus hospitalist service consulted for admission. Departure - Departure Disposition: ED Place in Observation Clinical Impression: Altered mental status Qualifiers: Altered mental status type: somnolence Qualified Code(s): R40.0 - Somnolence Condition: Stable Discharge Date/Time: 10/05/20 23:52
[2020-10-05] MEDS ORDERED: SODIUM CHLORIDE 0.9% 500 ML IV STA (19:03)
[2020-10-05 19:12] LABS: BASOPHILS # (AUTO) 0.1 10^3/uL (0.0-0.1); BASOPHILS % (AUTO) 0.6 %; EOSINOPHILS # (AUTO) 0.2 10^3/uL (0.0-0.7); EOSINOPHILS % (AUTO) 1.3 %; HCT - HEMATOCRIT 30.8 % (37.0-47.0); HGB - HEMOGLOBIN 10.1 g/dL (12.0-16.0); LYMPHOCYTES % (AUTO) 8.2 %; MEAN CORPUSCULAR HEMOGLOBIN 33.1 pg (27.0-31.0); MEAN CORPUSCULAR HGB CONC 32.8 g/dL (32.0-36.0); MEAN PLATELET VOLUME 9.1 fL (7.9-10.8); MONOCYTES # (AUTO) 0.7 10^3/uL (0.0-1.0); MONOCYTES % (AUTO) 5.3 %; NEUTROPHILS # (AUTO) 10.5 10^3/uL (1.5-6.6); NEUTROPHILS % (AUTO) 83.8 %; NRBC ABSOLUTE COUNT (AUTO) 0.89 x10^3/uL; NUCLEATED RED BLOOD CELLS AUTO 7.1 /100WBC; PLT - PLATELET COUNT 507 10^3/uL (130-450); RED BLOOD COUNT 3.05 10^6/uL (4.20-5.40); RED CELL DISTRIBUTION WIDTH 14.4 % (12.0-15.0); WHITE BLOOD COUNT 12.5 x10^3/uL (4.8-10.8)
[2020-10-05 19:26] LABS: ALBUMIN 2.9 g/dL (3.2-5.5); BILIRUBIN,TOTAL 1.6 mg/dL (0.2-1.0); CALCIUM 7.9 mg/dL (8.5-10.3); CREATININE 0.4 mg/dL (0.4-1.0); POTASSIUM 3.9 mmol/L (3.5-5.0); TOTAL PROTEIN 5.7 g/dL (6.7-8.2)
[2020-10-05 20:40] LABS: BILIRUBIN,URINE NEGATIVE (NEGATIVE); CLARITY,URINE CLEAR (CLEAR); GLUCOSE, URINE (UA) NEGATIVE (NEGATIVE); KETONES,URINE (UA) >=80 mg/dL (NEGATIVE); LEUKOCYTE ESTERASE, URINE NEGATIVE (NEGATIVE); NITRITE,URINE NEGATIVE (NEGATIVE); OCCULT BLOOD,URINE NEGATIVE (NEGATIVE); PH,URINE 6.5 PH (5.0-7.5); PROTEIN,URINE NEGATIVE (NEGATIVE); UROBILINOGEN,URINE 0.2 (NORMAL) E.U./dL (NORMAL)
[2020-10-05] MEDS ORDERED: SODIUM CHLORIDE 0.9% 1,000 ML IV STA (21:08)
--- NOTE | 2020-10-05 21:25 | CT Report ---
PROCEDURE: HEAD WO INDICATIONS: fell 6 days ago, now with AMS TECHNIQUE: Noncontrast 4.5 mm thick angled axial sections acquired from the foramen magnum to the vertex. For r adiation dose reduction, the following was used: automated exposure control, adjustment of mA and/or kV according to patient size. COMPARISON: None. FINDINGS: Image quality: Excellent. CSF spaces: Basal cisterns are patent. CSF density 30 mm focus at the anterior aspect of the right t emporal lobe.. Ventricles are normal in size and shape. Brain: No midline shift. No intracranial masses or hemorrhage. Nelson-white matter interface is norm al. Skull and face: Calvarium and visualized facial bones are intact, without suspicious lesions. Sinuses: Moderate left maxillary sinus mucosal disease. Visualized sinuses and mastoids are otherwis e clear. IMPRESSION: 1. No acute intracranial amount. 2. Findings suggestive of a right middle cranial fossa arachnoid cyst. Confirmation with nonemergent outpatient follow-up brain MRI with and without intravenous contrast is recommended. 3. Sinus disease. Reviewed by: Su Jiang MD on 10/05/2020 9:24 PM PDT Approved by: Su Jiang MD on 10/05/2020 9:24 PM PDT Station ID: [id number]
[2020-10-05 21:27] LABS: B. PARAPERTUSSIS- RESP PCR PAN NOT DETECTED; B. PERTUSSIS- RESP PCR PANEL NOT DETECTED; C. PNEUMONIAE- RESP PCR PANEL NOT DETECTED; CORONAVIRUS 229E-RESP PCR NOT DETECTED; CORONAVIRUS HKU1-RESP PCR NOT DETECTED; CORONAVIRUS NL63-RESP PCR NOT DETECTED; CORONAVIRUS OC43-RESP PCR NOT DETECTED; HUMAN METAPNEUMOVIRUS NOT DETECTED; INFLUENZA A- RESP PCR PANEL NOT DETECTED; INFLUENZA B - RESP PCR PANEL NOT DETECTED; M. PNEUMONIAE- RESP PCR PANEL NOT DETECTED; PARAINFLUENZA VIRUS 1 NOT DETECTED; PARAINFLUENZA VIRUS 2 NOT DETECTED; PARAINFLUENZA VIRUS 3 NOT DETECTED; PARAINFLUENZA VIRUS 4 NOT DETECTED; RHINOVIRUS/ENTEROVIRUS NOT DETECTED; RSV- RESP PCR PANEL NOT DETECTED; SARS-CoV-2 -RESP PCR PANEL NOT DETECTED
[2020-10-05] MEDS ORDERED: ONDANSETRON 4 MG/2 ML VIAL IVP STA (22:35)
[2020-10-05] MEDS ORDERED: ACETAMINOPHEN 325 MG TABLET PO PRN (22:47)
--- NOTE | 2020-10-05 22:57 | HISTORY & PHYSICAL EXAMINATION ---
Chief Complaint - Chief Complaint Chief Complaint: Poor appetite and lack of movement. History of Present Illness - Admitted From Admitted From:: Home - History Obtained From Records Reviewed: Yes History obtained from: Patient, Son, ER Physician, EMR - History of Present Illness HPI Comment/Other: This is a 69-year-old female with a past medical history significant for COPD, chronic respiratory failure on 4 L of oxygen, hypothyroidism, rheumatoid arthritis, history of pancreatic cancer who presents today due to poor appetite and decreased mobility at home. Today is her fourth visit to the emergency department in less than 1 week. It all began on 29 September when she fell at home while trying to go up the stairs. She landed on her left side and fractured one left rib as well as the proximal left humerus and a left pelvic fracture. Since then, her pain has been difficult to control and she has been more sedentary due to pain with any movement. Her appetite has decreased and she has had limited p.o. intake. She has been drinking fluids but only ate one sandwich today and yesterday she did not eat much more. She lives at home with her son and he tells me it is difficult to take care of her in her current condition. He was quite concerned that today she was much more lethargic and seemed a little confused compared to her usual self. She was asked to decrease her hydrocodone a couple of days ago she was having hallucinations. She states she is on chronic hydrocodone for pain and that she is used to opiates. She denies taking any narcotics today and she is not sure if she took her usual morning medications. Her son feels she is improved at this time but still not at her baseline. Her answers are still delayed and she is still intermittently confused. The patient denies any fevers, chills. She does complain of shortn ess of breath but denies a cough or chest pain. She denies any lower extremity edema or calf pain. She is not on any anticoagulants or aspirin at home. She does complain of abdominal pain and reports feeling nauseous. She does not had any emesis. She normally has chronic diarrhea and has 3-4 bowel movements a day but reports not having a bowel movement since her fall nearly 1 week ago. She i s also not passing gas. She denies any dysuria, urgency. She does have a history of significant bowel interventions in the past for her history of pancreatic cancer as well as a colectomy for history of Crohn's disease. Given the change in her mental status and her decreased mobility, medicine was consulted for admission. I did discuss goals of care with the patient and she would like to be a DNR. History - Past Medical History Cardiovascular: reports: None Respiratory: reports: Asthma, COPD Neuro: reports: Headaches Endocrine/Autoimmune: reports: HyPOthyroidism GI: reports: GERD, Crohn's disease, Other (History of pancreatic cancer.) : reports: Incontinence, Frequency HEENT: reports: Other Psych: reports: Depression, Anxiety Musculoskeletal: reports: Fibromyalgia, Rheumatoid arthritis Derm: reports: None MRSA Hx?: No - Past Surgical History General: reports: Cholecystectomy, Bowel surgery, Other (Hemicolectomy in 1992 for Crohn's disease. 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 Living arrangement: At home Living Situation: With family Social History Notes: She lives at home with her son, Girish. She smoked for a year when she was 14 years old. She does not drink alcohol. - POLST Patient has POLST: No Meds/Allgy - Home Medications Home Medications: Ambulatory Orders Medication Instructions Recorded Confirmed Albuterol 2.5 mg INH Q4H PRN 11/02/16 10/04/20 Budesonide/Formoterol Fumarate 10.2 gm IH BID 11/02/16 10/04/20 [Symbicort 160-4.5 Mcg Inhaler] DULoxetine [Cymbalta] 60 mg PO DAILY 11/02/16 10/04/20 Gabapentin 400 mg PO DAILY 11/02/16 10/04/20 Hydroxychloroquine [Plaquenil] 200 mg PO DAILY 11/02/16 10/04/20 Liothyronine [Cytomel] 5 mcg PO QDAC 11/02/16 10/04/20 Ondansetron HCl [Zofran] 4 mg PO Q6H PRN #20 tablet 11/02/16 10/04/20 Oxybutynin [Ditropan] 5 mg PO BID 11/02/16 10/04/20 modafiniL [Modafinil] 200 mg PO DAILY 11/02/16 10/04/20 oxyCODONE [Roxicodone] 10 mg PO Q6H 11/02/16 10/04/20 predniSONE [Prednisone] 10 mg PO DAILY 11/02/16 10/04/20 Levothyroxine Sodium 200 mcg PO DAILY 01/06/18 10/04/20 Digestive 8/L.acidoph/Pectin 1 each PO QDDINNER 09/30/20 10/04/20 [Digestive Enzymes Tablet] Duloxetine HCl [Cymbalta] 60 mg PO DAILY 09/30/20 10/04/20 Fluticasone Propion/Salmeterol 1 each IH PRN PRN 09/30/20 10/04/20 [Wixela 500-50 Inhub] Hydroxychloroquine [Plaquenil] 200 mg PO DAILY 09/30/20 10/04/20 Levothyroxine [Synthroid] 200 mcg DAILY 09/30/20 10/04/20 Olopatadine HCl [Pataday] 2.5 ml OP DAILY 09/30/20 10/04/20 Omeprazole 80 mg PO PRN PRN 09/30/20 10/04/20 Lidocaine Patch 5% [Lidoderm Patch] 1 patch TOP DAILY PRN #10 patch 10/03/20 10/04/20 Meloxicam [Mobic] 7.5 mg PO BID PRN #20 tablet 10/03/20 10/04/20 HYDROcod/ACETAM 5/325 [Marmaduke 5/325] 1 - 2 tablet PO Q6H PRN #14 tablet 10/04/20 - Allergies Allergies/Adverse Reactions: Allergies Allergy/AdvReac Type Severity Reaction Status Date / Time Penicillins Allergy Cramps Verified 10/05/20 18:50 Review of Systems - Constitutional Constitutional: reports: Fatigue, Poor appetite. denies: Fever, Chills - Ears, Nose & Throat Ears, Nose & Throat: denies: Nasal discharge, Sore throat - Cardiovascular Cariovascular: denies: Chest pain, Edema, Syncope, Exertional dyspnea, Decr. exercise tolerance - Respiratory Respiratory: reports: SOB at rest, Pleuritic pain. denies: Cough - Gastrointestinal Gastrointestinal: reports: Abdominal pain, Constipation, Change in bowel habits, Nausea, Poor appetite. denies: Vomiting - Genitourinary Genitourinary: reports: Incontinence. denies: Dysuria, Frequency, Urgency - Integumentary Integumentary: denies: Rash - Neurological Neurological: reports: General weakness. denies: Focal weakness, Numbness - Hematologic/Lymphatic Hematologic/Lymphatic: reports: Bruising. denies: Bleeding tendencies Prior Level of Functionality: She was independent prior to her fall and was ambulating with a cane at baseline. Exam - Vital Signs Reviewed Vital Signs: Yes Vital Signs: Vital Signs x48h Temp Pulse Resp BP Pulse Ox 10/05/20 22:00 95 18 152/81 H 96 10/05/20 20:30 113 H 18 154/79 H 96 10/05/20 18:50 37 C 113 H 26 H 158/86 H 96 - Physical Exam General Appearance: positive: Alert, Mild distress, Other (She is alert well lying in bed. She does appear to be distressed with minimal movement. Her answers are slightly delayed at times.) Eyes Bilateral: positive: PERRL, Conjunctivae nml ENT: positive: Pharynx nml, Dry mucous membranes, Other (Nasal cannula in place.). negative: No signs of dehydration Neck: positive: Nml inspection Respiratory: positive: No respiratory distress, Other (She is tachypnic but not in distress.). negative: Wheezes, Rales Cardiovascular: positive: Tachycardia. negative: Irregularly irregular, Systolic murmur Abdomen: positive: Tenderness (Left upper quadrant and epigastric tenderness.), Abnml bowel sounds (Hypoactive.). negative: Non-tender, Nml bowel sounds, Gua rding, Rebound Skin: positive: Warm, Dry, Other (Large area of ecchymosis over the left upper extremity from the left shoulder down to the elbow.) Extremities: positive: No pedal edema, Joint swelling, Other (Range of motion is limited in the left upper extremity at the shoulder joint due to the fracture. Ecchymosis as mentioned above). negative: Calf tenderness, Elicia's sign/cords Neurologic/Psychiatric: positive: Sensation nml, Other (She has no obvious focal deficits on exam but this is limited secondary to pain and decreased range of motion due to the left humerus fracture and her pelvic fracture). negative: Di soriented to person, Disoriented to place, Disoriented to time Conclusion/Plan - Problem List (1) Altered mental status Conclusion/Plan: Although she is oriented, her son does report that she is quite lethargic and delayed compared to her baseline. The ER provider who has also seen her twice now over the past week also reports this is not how the patient was like when he just saw her a couple of days ago. CT of the head was unremarkable. I do wonder this may related to her use of opiates despite her being on chronic hydrocodone. There could be a component of dehydration as well given her poor oral intake. At this time, we will hold all opiates. We will hydrate her with IV fluids. Check a TSH. If no improvement overnight, will consider stress dose steroids given she is on prednisone. Qualifiers: Altered mental status type: somnolence Qualified Code(s): R40.0 - Somnolence (2) Abdominal pain Conclusion/Plan: She does complain of left upper quadrant abdominal pain along with nausea and constipation which is unusual for her. Given these symptoms, I am concerned for potential obstruction and so we will order a CT of the abdomen pelvis with contrast. We will hydrate her with IV lactated Ringer's. Zofran as needed for nausea. We will limit opiates for time being given her somnolence. Qualifiers: Abdominal location: left upper quadrant Qualified Code(s): R10.12 - Left upper quadrant pain (3) Pubic bone fracture Conclusion/Plan: This was evident on the x-ray obtained October 03. This was secondary to mechanical fall. This is the cause of her limited mobility due to poorly controlled pain. Given her somnolence, we will hold off on opiates. Tylenol 1gm TID and ibuprofen as needed for pain control. PT has been consulted as a suspect she will likely need placement given her failure to thrive at home. Social work has also been consulted. (4) Proximal humerus fracture Conclusion/Plan: This is also secondary to her fall. X-ray from the showed an acute comminuted and impacted proximal humeral neck fracture seen to involve greater and lesser tuberosities. Once again, her pain has been difficult to control but due to her mental status, we will hold off on opiates for the time being. Continue with lidocaine patch, Tylenol, ibuprofen. (5) History of COPD Conclusion/Plan: Stable and not in exacerbation. Continue home inhalers. Continue her baseline 4L of oxygen. (6) History of fibromyalgia Conclusion/Plan: We will resume her home duloxetine and gabapentin once dosing is confirmed by pharmacy. (7) Rheumatoid arthritis Conclusion/Plan: Stable. We will continue her home prednisone and consider stress dose steroids if her mentation does not improve. (8) History of pancreatic cancer Conclusion/Plan: This is stable. Most recent MRI of the pancreas did not reveal recurrence of disease. She will continue outpatient follow-up with hematology/oncology. (9) Hypothyroidism Conclusion/Plan: We will check a TSH as this may be contributing to her poor appetite, decline in mental status, tachycardia. We will hold her home Synthroid for time being. (10) Thrombocytosis Conclusion/Plan: Chronic and stable. Continue outpatient follow-up with hematology/oncology. - Lab Results Lab results reviewed: Yes Fish Bones: 10/05/20 19:08 10/05/20 19:08 - Diagnostic Imaging Results Diagnostic Imaging Results: positive: Final report reviewed Core Measures - Anticipated LOS I expect patient to be DC'd or transferred within 96 hours.: Yes - Issues Hospital Issues and Management Plan: 69-year-old female with left proximal humerus fracture left pubic fracture presents with decreased level of consciousness and decreased mobility. Will place in observation for further work-up of her altered mental status. We are ordering a CT of the abdomen pelvis given her nausea and abdominal pain as well as a CT angio given her dyspnea to rule out a pulmonary embolism. - DVT/VTE - Prophylaxis VTE/DVT Device ordered at admit?: Yes VTE/DVT Prophylaxis med ordered at admit?: Yes
--- OUTSIDE RECORDS SUMMARY | 2020-10-05 23:11 | EXTERNAL MEDICAL SUMMARY RPT | Continuity of Care Document ---
:1950 Demographics Phone Unavailable Preferred Language Unknown Marital Status Unknown Holiness Affiliation Unknown Race Unknown Ethnic Group Unknown Author Organization [facility] Address [address] [place] [address] Phone Allergies Encounters Medications Problems Results
[2020-10-05] MEDS ORDERED: IOVERSOL 320 100 ML VIAL IVP ONE (23:43)
[2020-10-06] MEDS ORDERED: IOVERSOL 320 100 ML VIAL IVP ONE ×2 (00:18→00:20)
[2020-10-06] MEDS ORDERED: IPRATROPIUM/ALBUTEROL 3 ML NEB INH PRN (00:22)
[2020-10-06] MEDS: LACTATED RINGERS 1,000 ML IV SCH ×2 (01:05→10:40)
[2020-10-06] MEDS: SODIUM CHLORIDE FLUSH 0.9% 10 ML SYRINGE IVP SCH ×3 (01:12→16:00)
[2020-10-06] MEDS: IBUPROFEN 600 MG TABLET PO PRN ×2 (01:12→09:00)
[2020-10-06 05:24] LABS: BASOPHILS % (AUTO) 0.4 %; EOSINOPHILS % (AUTO) 0.3 %; HCT - HEMATOCRIT 29.9 % (37.0-47.0); HGB - HEMOGLOBIN 9.5 g/dL (12.0-16.0); LYMPHOCYTES # (AUTO) 0.8 10^3/uL (1.5-3.5); LYMPHOCYTES % (AUTO) 7.4 %; MEAN CORPUSCULAR HEMOGLOBIN 32.1 pg (27.0-31.0); MEAN CORPUSCULAR HGB CONC 31.8 g/dL (32.0-36.0); MEAN PLATELET VOLUME 9.5 fL (7.9-10.8); MONOCYTES # (AUTO) 0.5 10^3/uL (0.0-1.0); MONOCYTES % (AUTO) 5.1 %; NEUTROPHILS # (AUTO) 9.1 10^3/uL (1.5-6.6); NEUTROPHILS % (AUTO) 85.9 %; NRBC ABSOLUTE COUNT (AUTO) 0.67 x10^3/uL; NUCLEATED RED BLOOD CELLS AUTO 6.3 /100WBC; PLT - PLATELET COUNT 541 10^3/uL (130-450); RED BLOOD COUNT 2.96 10^6/uL (4.20-5.40); RED CELL DISTRIBUTION WIDTH 14.6 % (12.0-15.0); WHITE BLOOD COUNT 10.6 x10^3/uL (4.8-10.8)
[2020-10-06 05:30] LABS: CALCIUM 8.2 mg/dL (8.5-10.3); CREATININE 0.5 mg/dL (0.4-1.0); MAGNESIUM 2.2 mg/dL (1.7-2.8); POTASSIUM 3.8 mmol/L (3.5-5.0)
[2020-10-06] MEDS: ACETAMINOPHEN 500 MG TABLET PO SCH ×3 (05:45→22:25)
[2020-10-06] MEDS: ONDANSETRON 4 MG/2 ML VIAL IVP PRN (05:56)
[2020-10-06] MEDS ORDERED: ACETAMINOPHEN 325 MG TABLET PO SCH (06:00)
--- NOTE | 2020-10-06 08:31 | CT Report ---
PROCEDURE: Abdomen/Pelvis W INDICATIONS: Abdominal pain. Constipation. Nausea. CONTRAST: IV CONTRAST: Optiray 320 ml: 80 PO CONTRAST: *NO PO CONTRAST TECHNIQUE: After the administration of contrast, 5 mm thick sections acquired from the diaphragms to the sym physis. 5 mm thick coronal and sagittal reformats were acquired. For radiation dose reduction, the following was used: automated exposure control, adjustment of mA and/or kV according to patient size . COMPARISON: CT abdomen/pelvis 09/30/2020 FINDINGS: Image quality: Excellent. ABDOMEN: Lung bases: Lung bases are clear. Heart size is normal. Solid organs: Liver is normal in enhancement. The liver is proportionately smaller on the right as has been previously the case and surgical clips indicate prior cholecystectomy. Partial right hepatic resection appears to have been performed. The spleen is absent The appearance is stable over time. G allbladder is absent Biliary system is non dilated. Pancreas enhances normally. No adrenal nodules . Kidneys demonstrate normal size and enhancement, without hydronephrosis. Chronic prominent elevat ion of the right diaphragm. Peritoneum and bowel: Bowel loops demonstrate normal wall thickness and caliber. No free fluid or a ir. There is mild to moderate colonic obstipation. Nodes and vessels: No retroperitoneal or mesenteric adenopathy by size criteria. Aorta and inferior vena cava are normal in size. Miscellaneous: No ventral hernias. PELVIS: Genitourinary: Bladder wall thickness is normal. Miscellaneous: No inguinal hernias or adenopathy. Bones: No suspicious bony lesions. There is slight irregularity at the symphysis pubis on the right , which may be degenerative in origin but might reflect old injury. A definite acute trauma on the franciscan healtht is not found. There is, however, a new fracture involving the left symphysis pubis. This was not present only 6 days ago. No vertebral body compression fractures. IMPRESSION: 1. New finding of left symphysis pubis fracture. 2. Chronic prominent elevation of the right hemidiaphragm. Small right hepatic lobe when compared to the left hepatic lobe-suspect prior partial right liver resection. 3. Absent spleen, prior cholecystectomy. 4. Mild to moderate colonic obstipation. No sign of diverticulitis or appendicitis. Reviewed by: Giacomo King MD on 10/06/2020 8:30 AM PDT Approved by: Giacomo King MD on 10/06/2020 8:30 AM PDT Station ID: [id number]
[2020-10-06] MEDS: SENNA 8.6 MG TABLET PO SCH (08:43)
[2020-10-06] MEDS: LIDOCAINE PATCH 5% TOP PRN (08:44)
[2020-10-06] MEDS: ENOXAPARIN 40 MG/0.4 ML SYRINGE SUBQ SCH (08:59)
[2020-10-06] MEDS: predniSONE 10 MG TABLET PO SCH (09:00)
[2020-10-06] MEDS: polyethylene glycoL 3350 17 GM PACKET PO SCH (09:00)
[2020-10-06] MEDS: DOCUSATE SODIUM 250 MG CAPSULE PO SCH (09:00)
--- NOTE | 2020-10-06 09:01 | XRAY Report ---
PROCEDURE: Chest 1 View X-Ray INDICATIONS: sob TECHNIQUE: One view of the chest was acquired. COMPARISON: CT chest 09/30/2020 FINDINGS: Surgical changes and devices: None. Lungs and pleura: No pleural effusions or pneumothorax. Lungs are clear considering influence of pr ominently chronically elevated right hemidiaphragm.. Mediastinum: Mediastinal contours appear normal. Heart size is normal. Bones and chest wall: No suspicious bony lesions. Overlying soft tissues appear unremarkable. IMPRESSION: Prominently elevated right hemidiaphragm. Please also refer to CT scanning that includes this portion of the chest same day. Reviewed by: Giacomo King MD on 10/06/2020 9:00 AM PDT Approved by: Giacomo King MD on 10/06/2020 9:00 AM PDT Station ID: [id number]
[2020-10-06] MEDS ORDERED: HYDROcod/ACETAM 7.5 MG/325 MG TABLET PO PRN (09:13)
[2020-10-06] MEDS: GABAPENTIN 300 MG CAPSULE PO SCH ×3 (09:54→22:26)
[2020-10-06] MEDS ORDERED: DOCUSATE SODIUM 283 MG ENEMA PR ONE (10:00)
--- NOTE | 2020-10-06 10:58 | CT Report ---
PROCEDURE: ANGIO CHEST W/WO INDICATIONS: Dyspnea. Tachycardia. CONTRAST: IV CONTRAST: Optiray 320 ml: 80 PO CONTRAST: *NO PO CONTRAST TECHNIQUE: After the administration of intravenous contrast, 2 mm thick sections acquired from the pulmonary api joan to the posterior costophrenic angles. 3-dimensional maximum intensity projection (MIP) coronal a nd sagittal reformats were then acquired through the thorax. For radiation dose reduction, the follow ing was used: automated exposure control, adjustment of mA and/or kV according to patient size. COMPARISON: Chest CT 2120 FINDINGS: Image quality: Excellent. Pulmonary arteries: Pulmonary arteries are normal in size, and demonstrate no intraluminal filling d efects to suggest central pulmonary embolism. Lungs and pleura: Mild bilateral effusions. Central and peripheral airways are patent. Mediastinum: Heart size is normal, without pericardial effusion. No mediastinal or hilar adenopathy . Thoracic aorta is normal in caliber and enhancement. Esophagus is normal in caliber, without hiat al hernia. Bones and chest wall: No suspicious bony lesions. Left lateral and posterior seventh through 11th ri b fractures are noted, with the lateral fracture is noted at the seventh and ninth ribs. No axillary or supraclavicular adenopathy. The thyroid is not well seen. Abdomen: Visualized upper abdominal solid organs appear normal in the early arterial phase of enhanc ement. IMPRESSION: 1. Mild bilateral effusions. 2. Left rib fractures without pneumothorax. The above findings are concordant with preliminary report. CLINICAL RECOMMENDATION STATEMENTS: In patients <35 years with an ITN detected on CT, MRI, or extrathyroidal ultrasound, the Committee re commends further evaluation with dedicated thyroid ultrasound if the nodule is ?1 cm and has no suspi cious imaging features, and if the patient has normal life expectancy. In patients ?35 years with an ITN detected on CT, MRI, or extrathyroidal ultrasound, the Committee re commends further evaluation with dedicated thyroid ultrasound if the nodule is ?1.5 cm and has no ariana picious imaging features, and if the patient has normal life expectancy. (ACR, 2014) Reviewed by: Nesha Sneed MD on 10/06/2020 10:56 AM PDT Approved by: Nesha Sneed MD on 10/06/2020 10:56 AM PDT Station ID: [id number]
[2020-10-06] MEDS ORDERED: MORPHINE 2 MG/ML CARPUJECT IVP PRN (11:11)
--- NOTE | 2020-10-06 14:01 | PROVIDER PROGRESS NOTE ---
Assessment/Plan - Problem List (1) Altered mental status Qualifiers: Altered mental status type: somnolence Qualified Code(s): R40.0 - Somnolence Assessment/Plan: 10/06 slight improved but still present quite lethargic and slow response. CT of the head was unremarkable for acute findings. continue reduced opiates pain meds dosage, add Toradol. pt has left rib, humerus and pubic bone fractures from her fall. (2) hx of Hypothyroidism with significant low of TSH pt's TSH<0.08. home synthroid is pending on confirmation by pharmacy. pt might have too much synthroid in the home, as this may be contributing to her poor appetite, decline in mental status, tachycardia. We will hold her home Synthroid for time being and reduce her dosage when she is on d/c, followup with her PCP management. (3) obstipation CT of abdomen show new finding of left symphysis Pubic fracture, and mild to moderate colonic obstipation, no sign of diverticulitis or appendicitis. pt report her abdominal pain is improved. pt decline to take docusol enema. order docusate for pt, advise pt reduce opiates intake as possible for her obstipation. (4) Pubic bone fracture Conclusion/Plan: This was evident on the x-ray obtained October [address] of abdomen on today. This was secondary to mechanical fall. This is the cause of her limited mobility due to poorly controlled pain. pt complain of severe pain at her pelvis. Tylenol 1gm TID, Toradol PRN and Morphine PRN for pt. PT recommend to SNF. Social work has also been consulted for disposition. (5) Proximal humerus fracture Conclusion/Plan: pt is on sling protection now. X-ray from the showed an acute comminuted and impacted proximal humeral neck fracture seen to involve greater and lesser tuberosities. This is also secondary to her fall. Continue with lidocaine patch, Tylenol, Toradol PRN and Morphine PRN for pt. (6) History of COPD Conclusion/Plan: Stable and not in exacerbation. Continue home inhalers. supplement of O2 as n eeded (7) History of fibromyalgia Conclusion/Plan: We will resume her home duloxetine and gabapentin once dosing is confirmed by pharmacy. (8) Rheumatoid arthritis Conclusion/Plan: Stable. We will continue her home prednisone and consider stress dose steroids if her mentation does not improve. (9) History of pancreatic cancer Conclusion/Plan: This is stable. Most recent MRI of the pancreas and today CT of abdomen did not reveal recurrence of disease. She will continue outpatient follow-up with hematology/oncology. (10) Thrombocytosis Conclusion/Plan: Chronic and stable. Continue outpatient follow-up with hematology/oncology. - Current Meds Current Meds: Current Medications Generic Name Dose Route Start Last Admin Trade Name Freq PRN Reason Stop Dose Admin Acetaminophen 1,000 mg 10/06/20 06:00 10/06/20 05:45 Acetaminophen 500 Mg Tablet PO 1,000 mg TID SANTY Administration Docusate Sodium 250 - 500 mg 10/06/20 09:00 10/06/20 09:00 Docusate Sodium 250 Mg Capsule PO 250 mg DAILY SANTY Administration Enoxaparin Sodium 40 mg 10/06/20 09:00 10/06/20 08:59 Enoxaparin 40 Mg/0.4 Ml Syringe SUBQ 40 mg DAILY SANTY Administration Gabapentin 300 mg 10/06/20 10:00 10/06/20 09:54 Gabapentin 300 Mg Capsule PO 300 mg TID SANTY Administration Lactated Ringer's 1,000 mls @ 100 mls/hr 10/05/20 23:00 10/06/20 10:40 Lr IV 10/06/20 18:59 100 mls/hr .Q10H SANTY Administration Lidocaine 1 patch 10/06/20 01:01 10/06/20 08:44 Lidocaine Patch 5% TOP 1 patch DAILY PRN Administration PAIN Ondansetron HCl 4 mg 10/05/20 22:47 10/06/20 05:56 Ondansetron 4 Mg/2 Ml Vial IVP 4 mg Q6HR PRN Administration Nausea / Vomiting Polyethylene Glycol 17 gm 10/06/20 09:00 10/06/20 09:00 Polyethylene Glycol 3350 17 Gm Packet PO 17 gm DAILY SANTY Administration Prednisone 10 mg 10/06/20 09:00 10/06/20 09:00 Prednisone 10 Mg Tablet PO 10 mg DAILY SANTY Administration Senna 8.6 - 17.2 mg 10/06/20 09:00 10/06/20 08:43 Senna 8.6 Mg Tablet PO 8.6 mg DAILY SANTY Administration Sodium Chloride 10 ml 10/06/20 01:00 10/06/20 08:44 Sodium Chloride Flush 0.9% 10 Ml Syringe IVP Not Given 0100,0900,1700 SANTY - Lab Result Fish Bone Diagrams: 10/06/20 05:00 10/06/20 05:00 - Additional Planning My Orders: My Active Orders 10/06/20 08:52 Incentive Spirometry - RT [RC] TID 10/06/20 10:00 Gabapentin [Neurontin] 300 mg PO TID 10/06/20 11:11 Morphine Inj (Carpuject) [Morphine (Carpuject)] 2 mg IVP Q2HR PRN 10/06/20 11:29 Miscellaenous Nursing Order [RC] ONCE 10/06/20 11:35 Ketorolac Inj (15Mg) [Toradol Inj (15Mg)] 15 mg IVP Q6HR PRN Subjective - Subjective Nursing Reports: Confused, Constipation Objective Vital Signs: Vital Signs - 24 hr 10/05/20 10/05/20 10/05/20 18:50 20:30 22:00 Temperature 37 C Heart Rate 113 H 113 H 95 Heart Rate [ Brachial] Heart Rate [ Supine] Respiratory 26 H 18 18 Rate Blood Pressure 158/86 H 154/79 H 152/81 H Blood Pressure [Left Radial artery] Blood Pressure [Right Brachial artery] Blood Pressure [Supine] O2 Saturation 96 96 96 O2 Saturation [ Without Activity] 10/05/20 10/06/20 10/06/20 23:08 01:00 02:15 Temperature 36.5 C Heart Rate 111 H 104 H Heart Rate [ 104 H Brachial] Heart Rate [ Supine] Respiratory 19 20 18 Rate Blood Pressure 164/85 H Blood Pressure [Left Radial artery] Blood Pressure 157/79 H [Right Brachial artery] Blood Pressure [Supine] O2 Saturation 97 98 O2 Saturation [ Without Activity] 10/06/20 10/06/20 10/06/20 05:00 08:01 12:05 Temperature 36.6 C 36.8 C Heart Rate Heart Rate [ 107 H 109 H Brachial] Heart Rate [ 108 H Supine] Respiratory 16 19 Rate Blood Pressure Blood Pressure [Left Radial artery] Blood Pressure 150/89 H 159/77 H [Right Brachial artery] Blood Pressure 152/82 H [Supine] O2 Saturation 99 100 O2 Saturation [ 99 Without Activity] 10/06/20 12:09 Temperature 37 C Heart Rate Heart Rate [ 108 H Brachial] Heart Rate [ Supine] Respiratory 18 Rate Blood Pressure Blood Pressure 152/82 H [Left Radial artery] Blood Pressure [Right Brachial artery] Blood Pressure [Supine] O2 Saturation 99 O2 Saturation [ Without Activity] Oxygen O2 Source [Without Activity] Nasal cannula O2 Source Nasal cannula I&O (Last 24 Hrs): Intake and Output Totals x24h 10/04/20 10/05/20 10/06/20 23:59 23:59 23:59 Intake Total 500 1958.333 Output Total 750 Balance 500 1208.333 General: Alert, Mild distress HEENT: Atraumatic Neck: Supple Lymphatic: no adenopathy Neuro: Alert, Non Focal Cardiovascular: Regular rate, Normal S1, Normal S2 Respiratory: Chest non-tender Abdomen: Normal bowel sounds, Soft Extremities: Normal pulses - Results Results: Laboratory Results WBC 10.6 x10^3/uL (4.8-10.8) 10/06/20 05:00 RBC 2.96 10^6/uL (4.20-5.40) L 10/06/20 05:00 Hgb 9.5 g/dL (12.0-16.0) L 10/06/20 05:00 Hct 29.9 % (37.0-47.0) L 10/06/20 05:00 MCV 101.0 fL (81.0-99.0) H 10/06/20 05:00 MCH 32.1 pg (27.0-31.0) H 10/06/20 05:00 MCHC 31.8 g/dL (32.0-36.0) L 10/06/20 05:00 RDW 14.6 % (12.0-15.0) 10/06/20 05:00 Plt Count 541 10^3/uL (130-450) H 10/06/20 05:00 MPV 9.5 fL (7.9-10.8) 10/06/20 05:00 Neut # (Auto) 9.1 10^3/uL (1.5-6.6) H 10/06/20 05:00 Lymph # (Auto) 0.8 10^3/uL (1.5-3.5) L 10/06/20 05:00 [place] # (Auto) 0.5 10^3/uL (0.0-1.0) 10/06/20 05:00 Eos # (Auto) 0.0 10^3/uL (0.0-0.7) 10/06/20 05:00 Baso # (Auto) 0.0 10^3/uL (0.0-0.1) 10/06/20 05:00 Absolute Nucleated RBC 0.67 x10^3/uL 10/06/20 05:00 Nucleated RBC % 6.3 /100WBC 10/06/20 05:00 Sodium 134 mmol/L (135-145) L 10/06/20 05:00 Potassium 3.8 mmol/L (3.5-5.0) 10/06/20 05:00 Chloride 95 mmol/L (101-111) L 10/06/20 05:00 Carbon Dioxide 27 mmol/L (21-32) 10/06/20 05:00 Anion Gap 12.0 (6-13) 10/06/20 05:00 BUN 10 mg/dL (6-20) 10/06/20 05:00 Creatinine 0.5 mg/dL (0.4-1.0) 10/06/20 05:00 Estimated GFR (MDRD) 122 (>89) 10/06/20 05:00 Glucose 100 mg/dL (70-100) 10/06/20 05:00 Lactic Acid 0.8 mmol/L (0.5-2.2) 10/05/20 19:56 Calcium 8.2 mg/dL (8.5-10.3) L 10/06/20 05:00 Magnesium 2.2 mg/dL (1.7-2.8) 10/06/20 05:00 Total Bilirubin 1.6 mg/dL (0.2-1.0) H 10/05/20 19:08 AST 23 IU/L (10-42) 10/05/20 19:08 ALT 26 IU/L (10-60) 10/05/20 19:08 Alkaline Phosphatase 84 IU/L (42-121) 10/05/20 19:08 Troponin I High Sens 6.5 ng/L (2.3-14.8) 10/06/20 05:00 Total Protein 5.7 g/dL (6.7-8.2) L 10/05/20 19:08 Albumin 2.9 g/dL (3.2-5.5) L 10/05/20 19:08 Globulin 2.8 g/dL (2.1-4.2) 10/05/20 19:08 Albumin/Globulin Ratio 1.0 (1.0-2.2) 10/05/20 19:08 Lipase 17 U/L (22-51) L 10/05/20 19:08 TSH < 0.08 uIU/mL (0.34-5.60) L 10/05/20 19:08 Urine Color YELLOW 10/05/20 20:18 Urine Clarity CLEAR (CLEAR) 10/05/20 20:18 Urine pH 6.5 PH (5.0-7.5) 10/05/20 20:18 Ur Specific [place] 1.020 (1.002-1.030) 10/05/20 20:18 Urine Protein NEGATIVE mg/dL (NEGATIVE) 10/05/20 20:18 Urine Glucose (UA) NEGATIVE mg/dL (NEGATIVE) 10/05/20 20:18 Urine Ketones >=80 mg/dL (NEGATIVE) H 10/05/20 20:18 Urine Occult Blood NEGATIVE (NEGATIVE) 10/05/20 20:18 Urine Nitrite NEGATIVE (NEGATIVE) 10/05/20 20:18 Urine Bilirubin NEGATIVE (NEGATIVE) 10/05/20 20:18 Urine Urobilinogen 0.2 (NORMAL) E.U./dL (NORMAL) 10/05/20 20:18 Ur Leukocyte Esterase NEGATIVE (NEGATIVE) 10/05/20 20:18 Ur Microscopic Review NOT INDICATED 10/05/20 20:18 Urine Culture Comments NOT INDICATED 10/05/20 20:18 Nasal Adenovirus (PCR) NOT DETECTED 10/05/20 20:08 Nasal B. parapertussis DNA (PCR) NOT DETECTED 10/05/20 20:08 Nasal Coronavir 229E PCR NOT DETECTED 10/05/20 20:08 Nasal Coronavir HKU1 PCR NOT DETECTED 10/05/20 20:08 Nasal Coronavir NL63 PCR NOT DETECTED 10/05/20 20:08 Nasal Coronavir OC43 PCR NOT DETECTED 10/05/20 20:08 Nasal Enterovir/Rhinovir PCR NOT DETECTED 10/05/20 20:08 Nasal Influenza B PCR NOT DETECTED 10/05/20 20:08 Nasal Influenza A PCR NOT DETECTED 10/05/20 20:08 Nasal Parainfluen 1 PCR NOT DETECTED 10/05/20 20:08 Nasal Parainfluen 2 PCR NOT DETECTED 10/05/20 20:08 Nasal Parainfluen 3 PCR NOT DETECTED 10/05/20 20:08 Nasal Parainfluen 4 PCR NOT DETECTED 10/05/20 20:08 Nasal RSV (PCR) NOT DETECTED 10/05/20 20:08 Nasal B.pertussis DNA PCR NOT DETECTED 10/05/20 20:08 Nasal C.pneumoniae (PCR) NOT DETECTED 10/05/20 20:08 [place] Human Metapneumo PCR NOT DETECTED 10/05/20 20:08 Nasal M.pneumoniae (PCR) NOT DETECTED 10/05/20 20:08 Nasal SARS-CoV-2 (PCR) NOT DETECTED 10/05/20 20:08 ABX Reporting Has patient been on IV antibiotics over the past 48 hours?: No Current Medications - Current Medications Current Medications: Active Medications Acetaminophen (Acetaminophen 500 Mg Tablet) 1,000 mg PO TID [facility] Last Admin: 10/06/20 13:57 Dose: 1,000 mg Documented by: Albuterol/Ipratropium (Ipratropium/Albuterol 3 Ml Neb) 3 ml INH Q4HR PRN PRN Reason: Wheezing Docusate Sodium (Docusate Sodium 250 Mg Capsule) 250 - 500 mg PO DAILY [facility] Last Admin: 10/06/20 09:00 Dose: 250 mg Documented by: Enoxaparin Sodium (Enoxaparin 40 Mg/0.4 Ml Syringe) 40 mg SUBQ DAILY [facility] Last Admin: 10/06/20 08:59 Dose: 40 mg Documented by: Gabapentin (Gabapentin 300 Mg Capsule) 300 mg PO TID [facility] Last Admin: 10/06/20 13:57 Dose: 300 mg Documented by: Lactated Ringer's (Lr) 1,000 mls @ 100 mls/hr IV .Q10H [facility] Stop: 10/06/20 18:59 Last Admin: 10/06/20 10:40 Dose: 100 mls/hr Documented by: Ketorolac Tromethamine (Ketorolac 15 Mg/Ml Vial) 15 mg IVP Q6HR PRN PRN Reason: PAIN Stop: 10/11/20 11:34 Lidocaine (Lidocaine Patch 5%) 1 patch TOP DAILY PRN PRN Reason: PAIN Last Admin: 10/06/20 08:44 Dose: 1 patch Documented by: Morphine Sulfate (Morphine 2 Mg/Ml Carpuject) 2 mg IVP Q2HR PRN PRN Reason: PAIN Ondansetron HCl (Ondansetron 4 Mg/2 Ml Vial) 4 mg IVP Q6HR PRN PRN Reason: Nausea / Vomiting Last Admin: 10/06/20 05:56 Dose: 4 mg Documented by: Polyethylene Glycol (Polyethylene Glycol 3350 17 Gm Packet) 17 gm PO DAILY [facility] Last Admin: 10/06/20 09:00 Dose: 17 gm Documented by: Prednisone (Prednisone 10 Mg Tablet) 10 mg PO DAILY [facility] Last Admin: 10/06/20 09:00 Dose: 10 mg Documented by: Senna (Senna 8.6 Mg Tablet) 8.6 - 17.2 mg PO DAILY [facility] Last Admin: 10/06/20 08:43 Dose: 8.6 mg Documented by: Sodium Chloride (Sodium Chloride Flush 0.9% 10 Ml Syringe) 10 ml IVP PRN PRN PRN Reason: NEEDED PER PROVIDER ORDERS Sodium Chloride (Sodium Chloride Flush 0.9% 10 Ml Syringe) 10 ml IVP 0100,0900,1700 [facility] Last Admin: 10/06/20 08:44 Dose: Not Given Documented by: Albuterol 2.5 mg INH Q4H PRN 11/02/16 Budesonide/Formoterol Fumarate [Symbicort 160-4.5 Mcg Inhaler] 10.2 gm IH BID 11/02/16 DULoxetine [Cymbalta] 60 mg PO DAILY 11/02/16 Gabapentin 400 mg PO DAILY 11/02/16 Hydroxychloroquine [Plaquenil] 200 mg PO DAILY 11/02/16 Liothyronine [Cytomel] 5 mcg PO QDAC 11/02/16 Oxybutynin [Ditropan] 5 mg PO BID 11/02/16 modafiniL [Modafinil] 200 mg PO DAILY 11/02/16 oxyCODONE [Roxicodone] 10 mg PO Q6H 11/02/16 predniSONE [Prednisone] 10 mg PO DAILY 11/02/16 Levothyroxine Sodium 200 mcg PO DAILY 01/06/18 Digestive 8/L.acidoph/Pectin [Digestive Enzymes Tablet] 1 each PO QDDINNER 09/30/20 Duloxetine HCl [Cymbalta] 60 mg PO DAILY 09/30/20 Fluticasone Propion/Salmeterol [Wixela 500-50 Inhub] 1 each IH PRN PRN 09/30/20 Olopatadine HCl [Slade] 2.5 ml OP DAILY 09/30/20 Omeprazole 80 mg PO PRN PRN 09/30/20
--- NOTE | 2020-10-06 14:59 | PHARMACY PROGRESS NOTE ---
- Best Possible Medication History Admit Date and Time: 10/05/20 224 Processed by: Pharmacy Medication History completed: Yes Patient Interview: Completed Secondary Source(s): Physician records, Pharmacy records, Insurance records (PATIENT INTERVIEWED BY PHARMACY. MEDICATION LIST FAXED OVER FROM [facility] ) As the person ultimately responsible for medication therapy, providers are able to order a medication from an existing home medication list in [facility] via the "Reconcile Routine" prior to Confirmation of that medication by technical support consultant. Such practice is discouraged except when the physician, in their clinical judgment, deems that a medical need exists for a medication without regard to previous use.
[2020-10-06] MEDS: KETOROLAC 15 MG/ML VIAL IVP PRN (18:15)
[2020-10-07] MEDS ORDERED: MAGNESIUM CITRATE 296 ML BOTTLE PO ONE (00:56)
[2020-10-07] MEDS: KETOROLAC 15 MG/ML VIAL IVP PRN ×4 (02:06→20:38)
[2020-10-07] MEDS: ONDANSETRON 4 MG/2 ML VIAL IVP PRN (02:58)
[2020-10-07] MEDS: SODIUM CHLORIDE FLUSH 0.9% 10 ML SYRINGE IVP PRN ×3 (03:02→20:38)
[2020-10-07] MEDS: SODIUM CHLORIDE FLUSH 0.9% 10 ML SYRINGE IVP SCH ×4 (03:03→23:40)
[2020-10-07 04:39] LABS: BASOPHILS % (AUTO) 0.2 %; EOSINOPHILS # (AUTO) 0.1 10^3/uL (0.0-0.7); EOSINOPHILS % (AUTO) 0.9 %; HGB - HEMOGLOBIN 9.5 g/dL (12.0-16.0); LYMPHOCYTES # (AUTO) 1.3 10^3/uL (1.5-3.5); LYMPHOCYTES % (AUTO) 10.6 %; MEAN CORPUSCULAR HEMOGLOBIN 32.2 pg (27.0-31.0); MEAN CORPUSCULAR HGB CONC 32.8 g/dL (32.0-36.0); MEAN CORPUSCULAR VOLUME 98.3 fL (81.0-99.0); MEAN PLATELET VOLUME 9.1 fL (7.9-10.8); MONOCYTES # (AUTO) 1.1 10^3/uL (0.0-1.0); MONOCYTES % (AUTO) 8.4 %; NEUTROPHILS # (AUTO) 9.9 10^3/uL (1.5-6.6); NEUTROPHILS % (AUTO) 79.3 %; NRBC ABSOLUTE COUNT (AUTO) 0.56 x10^3/uL; NUCLEATED RED BLOOD CELLS AUTO 4.5 /100WBC; PLT - PLATELET COUNT 626 10^3/uL (130-450); RED BLOOD COUNT 2.95 10^6/uL (4.20-5.40); RED CELL DISTRIBUTION WIDTH 14.7 % (12.0-15.0); WHITE BLOOD COUNT 12.5 x10^3/uL (4.8-10.8)
[2020-10-07 04:49] LABS: CALCIUM 8.4 mg/dL (8.5-10.3); CREATININE 0.5 mg/dL (0.4-1.0); MAGNESIUM 4.3 mg/dL (1.7-2.8); POTASSIUM 3.3 mmol/L (3.5-5.0)
[2020-10-07] MEDS: GABAPENTIN 300 MG CAPSULE PO SCH ×2 (05:39→13:00)
[2020-10-07] MEDS: ACETAMINOPHEN 500 MG TABLET PO SCH ×2 (05:54→12:59)
[2020-10-07] MEDS ORDERED: POTASSIUM CHLORIDE 20 MEQ TABLET PO ONE (07:48)
[2020-10-07] MEDS ORDERED: OLOPATADINE HCL OP PRN (07:49)
[2020-10-07] MEDS: predniSONE 10 MG TABLET PO SCH (08:25)
[2020-10-07] MEDS: LIDOCAINE PATCH 5% TOP PRN (08:25)
[2020-10-07] MEDS: ENOXAPARIN 40 MG/0.4 ML SYRINGE SUBQ SCH (08:25)
[2020-10-07] MEDS: polyethylene glycoL 3350 17 GM PACKET PO SCH (08:53)
[2020-10-07] MEDS: SENNA 8.6 MG TABLET PO SCH (08:53)
[2020-10-07] MEDS: DOCUSATE SODIUM 250 MG CAPSULE PO SCH (08:53)
[2020-10-07] MEDS ORDERED: DIGESTIVE PO SCH (09:00)
[2020-10-07] MEDS ORDERED: [UNRECOGNIZED DRUG - OTHER] PO SCH (09:00)
[2020-10-07] MEDS ORDERED: COLESTIPOL HCL 1 GM PO SCH (09:00)
[2020-10-07] MEDS ORDERED: ALPRAZolam 0.25 MG TABLET PO PRN (09:29)
[2020-10-07] MEDS ORDERED: hydrOXYzine PAMOATE 25 MG CAPSULE PO PRN (09:31)
[2020-10-07] MEDS: HYDROXYCHLOROQUINE 200 MG TABLET PO SCH ×2 (12:59→20:38)
[2020-10-07] MEDS: DULoxetine 30 MG CAPSULE PO SCH (12:59)
[2020-10-07] MEDS: FLUTICASONE NASAL SPRAY NAS SCH (13:04)
[2020-10-07] MEDS ORDERED: ACETAMINOPHEN 500 MG TABLET PO PRN (13:34)
[2020-10-07] MEDS: GABAPENTIN 400 MG CAPSULE PO SCH ×2 (13:50→20:38)
--- NOTE | 2020-10-07 16:44 | PROVIDER PROGRESS NOTE ---
Subjective - Prog Note Date Prog Note Date: 10/07/20 - Subjective Pt reports feeling: Improved Subjective: pt report she feel better but her pain is not good control and ask to resume her home pain hoang and gabapentin. pt had bowel movement. pt is comfortable sitting at chair to eat her breakfast. SW report pt may be accepted by [facility] on tomorrow but not today. Home health PT/OT/bath aids was recommended by PT/OT and ordered for pt. Current Medications - Current Medications Current Medications: Active Medications Acetaminophen (Acetaminophen 500 Mg Tablet) 1,000 mg PO TID PRN PRN Reason: Pain or Fever > 38C (100.4F) Hydrocodone Bitart/Acetaminophen (Hydrocod/Acetam 5/325 Mg Tablet) 1 - 2 tab PO Q6H PRN PRN Reason: PAIN Albuterol/Ipratropium (Ipratropium/Albuterol 3 Ml Neb) 3 ml INH Q4HR PRN PRN Reason: Wheezing Alprazolam (Alprazolam 0.25 Mg Tablet) 0.5 mg PO TID PRN PRN Reason: Anxiety Last Admin: 10/07/20 12:58 Dose: 0.5 mg Documented by: Budesonide (Budesonide 0.5 Mg/2 Ml Neb) 0.5 mg INH RTBID [facility] Docusate Sodium (Docusate Sodium 250 Mg Capsule) 250 - 500 mg PO DAILY [facility] Last Admin: 10/07/20 08:53 Dose: Not Given Documented by: Duloxetine HCl (Duloxetine 30 Mg Capsule) 120 mg PO DAILY [facility] Last Admin: 10/07/20 12:59 Dose: 120 mg Documented by: Enoxaparin Sodium (Enoxaparin 40 Mg/0.4 Ml Syringe) 40 mg SUBQ DAILY [facility] Last Admin: 10/07/20 08:25 Dose: 40 mg Documented by: Fluticasone Propionate (Fluticasone Nasal [employer]) 2 sprays HARPREET DAILY [facility] Last Admin: 10/07/20 13:04 Dose: 2 spray Documented by: Formoterol Fumarate (Formoterol Fumarate Neb 20 Mcg/2 Ml) 20 mcg INH RTBID SANTY Gabapentin (Gabapentin 400 Mg Capsule) 1,600 mg PO TID [facility] Last Admin: 10/07/20 13:50 Dose: 1,600 mg Documented by: Hydroxychloroquine Sulfate (Hydroxychloroquine 200 Mg Tablet) 200 mg PO BID [facility] Last Admin: 10/07/20 12:59 Dose: 200 mg Documented by: Hydroxyzine Pamoate (Hydroxyzine Pamoate 25 Mg Capsule) 25 mg PO QID PRN PRN Reason: ITCHING Ketorolac Tromethamine (Ketorolac 15 Mg/Ml Vial) 15 mg IVP Q6HR PRN PRN Reason: PAIN Stop: 10/11/20 11:34 Last Admin: 10/07/20 13:45 Dose: 15 mg Documented by: Levothyroxine Sodium (Levothyroxine 100 Mcg Tablet) 100 mcg PO QDAC [facility] Lidocaine (Lidocaine Patch 5%) 1 patch TOP DAILY PRN PRN Reason: PAIN Last Admin: 10/07/20 08:25 Dose: 1 patch Documented by: Ondansetron HCl (Ondansetron 4 Mg/2 Ml Vial) 4 mg IVP Q6HR PRN PRN Reason: Nausea / Vomiting Last Admin: 10/07/20 02:58 Dose: 4 mg Documented by: Pantoprazole Sodium (Pantoprazole 40 Mg Tablet) 40 mg PO QDAC [facility] Polyethylene Glycol (Polyethylene Glycol 3350 17 Gm Packet) 17 gm PO DAILY [facility] Last Admin: 10/07/20 08:53 Dose: Not Given Documented by: Prednisone (Prednisone 10 Mg Tablet) 10 mg PO DAILY [facility] Last Admin: 10/07/20 08:25 Dose: 10 mg Documented by: Senna (Senna 8.6 Mg Tablet) 8.6 - 17.2 mg PO DAILY [facility] Last Admin: 10/07/20 08:53 Dose: Not Given Documented by: Sodium Chloride (Sodium Chloride Flush 0.9% 10 Ml Syringe) 10 ml IVP PRN PRN PRN Reason: NEEDED PER PROVIDER ORDERS Last Admin: 10/07/20 13:44 Dose: 20 ml Documented by: Sodium Chloride (Sodium Chloride Flush 0.9% 10 Ml Syringe) 10 ml IVP 0100,0900,1700 [facility] Last Admin: 10/07/20 11:49 Dose: 10 ml Documented by: Albuterol 2.5 mg INH Q4H PRN 11/02/16 Gabapentin 1,600 mg PO TID 11/02/16 Hydroxychloroquine [Plaquenil] 200 mg PO BID 11/02/16 Liothyronine [Cytomel] 5 mcg PO QDAC 11/02/16 Oxybutynin [Ditropan] 5 mg PO DAILY 11/02/16 modafiniL [Modafinil] 200 mg PO DAILY 11/02/16 predniSONE [Prednisone] 10 mg PO DAILY 11/02/16 Duloxetine HCl [Cymbalta] 120 mg PO DAILY 09/30/20 Fluticasone Propion/Salmeterol [Wixela 500-50 Inhub] 1 each IH BID 09/30/20 Olopatadine HCl [Pataday] 2.5 ml OP DAILY PRN 09/30/20 ALPRAZolam [Xanax] 0.5 mg PO TID PRN 10/06/20 Colestipol HCl [Colestid] 2 gm PO BID 10/06/20 Digestive 8/L.acidoph/Pectin [Digestive Enzymes Tablet] 1 tab PO DAILY 10/06/20 Fluticasone [Flonase] 2 sprays HARPREET DAILY 10/06/20 Levothyroxine Sodium [Levothyroxine] 150 mcg PO DAILY 10/06/20 Naloxone HCl [Narcan] 1 spray HARPREET PRN PRN 10/06/20 Pantoprazole Sodium [Protonix] 20 mg PO BID 10/06/20 hydrOXYzine HCL [Hydroxyzine HCl] 25 mg PO QID PRN 10/06/20 Objective - Vital Signs/Intake & Output Vital Signs: Vital Signs x48h Temp Pulse Pulse Pulse Pulse Resp BP 10/07/20 16:36 36.6 C 88 18 10/07/20 16:08 36.6 C 88 18 10/07/20 13:58 36.9 C 95 21 10/07/20 11:35 103 H 95 144/80 H 10/07/20 09:52 36.0 C L 88 20 BP BP Pulse Ox 10/07/20 16:36 97 10/07/20 16:08 144/65 H 99 10/07/20 13:58 130/63 96 10/07/20 11:35 148/80 H 10/07/20 09:52 148/72 H 97 Intake & Output: Intake & Output 10/04/20 10/05/20 10/06/20 10/07/20 23:59 23:59 23:59 23:59 Intake Total 500 3358.333 1890 Output Total 2600 1420 Balance 500 758.333 470 - Objective General Appearance: positive: No acute distress, Alert. negative: Lethargic Eyes Bilateral: positive: Normal inspection, PERRL, No lid inflammation ENT: positive: ENT inspection nml, No signs of dehydration. negative: Purulent nasal drainage Neck: positive: Nml inspection, Trachea midline. negative: Thyromegaly, Tracheal deviation Respiratory: positive: Chest non-tender, No respiratory distress. negative: Wheezes Cardiovascular: positive: Regular rate & rhythm, No murmur. negative: Tachycardia, Bradycardia, Systolic murmur, Diastolic murmur Peripheral Pulses: 2+ Radial (R), 2+ Radial (L) Abdomen: positive: Non-tender, Nml bowel sounds, No distention. negative: Tenderness, Guarding Back: positive: Nml inspection Skin: positive: Color nml, Warm, Dry. negative: Cyanosis Extremities: positive: Non-tender, Other (left hand with sling). negative: Calf tenderness Neurologic/Psychiatric: positive: Oriented x3, Sensation nml. negative: Weakness, Sensory loss, Facial droop, Slurred/abnml speech, Depressed mood/affect - Lab Results Fish Bones: 10/07/20 04:20 10/07/20 04:20 Other Labs: Lab Results x24hrs 10/07/20 10/07/20 Range/Units 04:20 04:20 WBC 12.5 H (4.8-10.8) x10^3/uL RBC 2.95 L (4.20-5.40) 10^6/uL Hgb 9.5 L (12.0-16.0) g/dL Hct 29.0 L (37.0-47.0) % MCV 98.3 (81.0-99.0) fL MCH 32.2 H (27.0-31.0) pg MCHC 32.8 (32.0-36.0) g/dL RDW 14.7 (12.0-15.0) % Plt Count 626 H (130-450) 10^3/uL MPV 9.1 (7.9-10.8) fL Neut # (Auto) 9.9 H (1.5-6.6) 10^3/uL Lymph # (Auto) 1.3 L (1.5-3.5) 10^3/uL [place] # (Auto) 1.1 H (0.0-1.0) 10^3/uL Eos # (Auto) 0.1 (0.0-0.7) 10^3/uL Baso # (Auto) 0.0 (0.0-0.1) 10^3/uL Absolute Nucleated RBC 0.56 x10^3/uL Nucleated RBC % 4.5 /100WBC Sodium 137 (135-145) mmol/L Potassium 3.3 L (3.5-5.0) mmol/L Chloride 97 L (101-111) mmol/L Carbon Dioxide 32 (21-32) mmol/L Anion Gap 8.0 (6-13) BUN 10 (6-20) mg/dL Creatinine 0.5 (0.4-1.0) mg/dL Estimated GFR (MDRD) 122 (>89) Glucose 117 H (70-100) mg/dL Calcium 8.4 L (8.5-10.3) mg/dL Magnesium 4.3 H (1.7-2.8) mg/dL ABX Reporting Has patient been on IV antibiotics over the past 48 hours?: No Sepsis Event Note (H) - Evaluation Current Stage of Sepsis: Ruled out Assessment/Plan - Problem List (1) Altered mental status Impression: 10/07 resolved. pt is alert and oriented today. 10/06 slight improved but still present quite lethargic and slow response. CT of the head was unremarkable for acute findings. continue reduced opiates pain meds dosage, add Toradol. pt has left rib, humerus and pubic bone fractures from her fall. (2) hx of Hypothyroidism with significant low of TSH 10/07 pt took both T3 and T4, now hold her T3 and reduce her dosage of synthroid to 100mcg daily, followup with her PCP to management. pt's TSH<0.08. home synthroid is pending on confirmation by pharmacy. pt might have too much synthroid in the home, as this may be contributing to her poor appetite, decline in mental status, tachycardia. We will hold her home Synthroid for time being and reduce her dosage when she is on d/c, followup with her PCP management. (3) obstipation resolved. pt has bowel movement CT of abdomen show new finding of left symphysis Pubic fracture, and mild to moderate colonic obstipation, no sign of diverticulitis or appendicitis. pt report her abdominal pain is improved. pt decline to take docusol enema. order docusate for pt, advise pt reduce opiates intake as possible for her obstipation. (4) Pubic bone fracture Conclusion/Plan: 10/07 resume her home norco and gabapentin, since pt had multiple location of fractures. continue PT/OT, plan to d/c with home health to nurse facility. This was evident on the x-ray obtained October [address] of abdomen on today. This was secondary to mechanical fall. This is the cause of her limited mobility due to poorly controlled pain. pt complain of severe pain at her pelvis. Tylenol 1gm TID, Toradol PRN and Morphine PRN for pt. PT recommend to SNF. Social work has also been consulted for disposition. (5) Proximal humerus fracture Conclusion/Plan: pt is on sling protection now. X-ray from the showed an acute comminuted and impacted proximal humeral neck fracture seen to involve greater and lesser tuberosities. This is also secondary to her fall. Continue with lidocaine patch, Tylenol, Toradol PRN and Morphine PRN for pt. (6) History of COPD Conclusion/Plan: Stable and not in exacerbation. Continue home inhalers. supplement of O2 as needed (7) History of fibromyalgia Conclusion/Plan: We will resume her home duloxetine and gabapentin once dosing is confirmed by pharmacy. (8) Rheumatoid arthritis Conclusion/Plan: Stable. We will continue her home prednisone and resume hydroxycholquine (9) History of pancreatic cancer Conclusion/Plan: This is stable. resume home pancreatic enzyme, Most recent MRI of the pancreas and today CT of abdomen did not reveal recurrence of disease. She will continue outpatient follow-up with hematology/oncology. (10) Thrombocytosis Conclusion/Plan: Chronic and stable. Continue outpatient follow-up with hematology/oncology. Qualifiers: Altered mental status type: somnolence Qualified Code(s): R40.0 - Somnolence
[2020-10-07] MEDS: HYDROcod/ACETAM 5/325 MG TABLET PO PRN ×2 (17:12→23:39)
[2020-10-07] MEDS: FORMOTEROL FUMARATE NEB 20 MCG/2 ML INH SCH (21:02)
[2020-10-07] MEDS: BUDESONIDE 0.5 MG/2 ML NEB INH SCH (21:03)
[2020-10-08] MEDS: SODIUM CHLORIDE FLUSH 0.9% 10 ML SYRINGE IVP PRN (04:01)
[2020-10-08] MEDS: KETOROLAC 15 MG/ML VIAL IVP PRN ×2 (04:01→08:27)
[2020-10-08 05:08] LABS: BASOPHILS % (AUTO) 0.4 %; EOSINOPHILS # (AUTO) 0.4 10^3/uL (0.0-0.7); EOSINOPHILS % (AUTO) 3.9 %; HCT - HEMATOCRIT 29.2 % (37.0-47.0); HGB - HEMOGLOBIN 9.6 g/dL (12.0-16.0); LYMPHOCYTES # (AUTO) 2.9 10^3/uL (1.5-3.5); LYMPHOCYTES % (AUTO) 25.8 %; MEAN CORPUSCULAR HEMOGLOBIN 32.8 pg (27.0-31.0); MEAN CORPUSCULAR HGB CONC 32.9 g/dL (32.0-36.0); MEAN CORPUSCULAR VOLUME 99.7 fL (81.0-99.0); MEAN PLATELET VOLUME 9.2 fL (7.9-10.8); MONOCYTES % (AUTO) 8.6 %; NEUTROPHILS # (AUTO) 6.7 10^3/uL (1.5-6.6); NEUTROPHILS % (AUTO) 60.6 %; NRBC ABSOLUTE COUNT (AUTO) 0.24 x10^3/uL; NUCLEATED RED BLOOD CELLS AUTO 2.2 /100WBC; PLT - PLATELET COUNT 667 10^3/uL (130-450); RED BLOOD COUNT 2.93 10^6/uL (4.20-5.40); RED CELL DISTRIBUTION WIDTH 14.8 % (12.0-15.0); WHITE BLOOD COUNT 11.1 x10^3/uL (4.8-10.8)
[2020-10-08 05:12] LABS: CREATININE 0.5 mg/dL (0.4-1.0); MAGNESIUM 2.7 mg/dL (1.7-2.8); POTASSIUM 3.4 mmol/L (3.5-5.0)
[2020-10-08] MEDS: HYDROcod/ACETAM 5/325 MG TABLET PO PRN ×2 (06:11→12:39)
[2020-10-08] MEDS: GABAPENTIN 400 MG CAPSULE PO SCH ×2 (06:12→12:39)
[2020-10-08] MEDS ORDERED: PANTOPRAZOLE 40 MG TABLET PO SCH (07:00)
[2020-10-08] MEDS ORDERED: LEVOTHYROXINE 100 MCG TABLET PO SCH (07:00)
--- NOTE | 2020-10-08 07:30 | Discharge Plan ---
"Discharge Plan for SNF / [facility] - Discharge Plan And Transition Orders Problem Reviewed?: Yes Disposition: 01 Home, Self Care Condition: Stable Allergies and Adverse Reactions: Allergies Allergy/AdvReac Type Severity Reaction Status Date / Time Penicillins Allergy Cramps Verified 10/05/20 18:50 Health Concerns: You have emphysema and are already on oxygen at home and you fell a week ago. You have been to the emergency room multiple times now because of poorly controlled pain from your left shoulder fracture, and left pubic fracture, as well as a chip in your lumbar spine. This pain has really gotten the best of you and it is hard for you to take care of herself. It is also very hard to control your pain. You were placed in observation in the hospital to help with control your pain and plan for what you need to do outside your home. Your family is unable to take care of you at this time and have asked that you be placed in an assisted living facility temporarily until you can be become more independent. As such we are transferring you to [facility] assisted living facility for you to be able to have people take care of you, give you medicines to control your pain, and hopefully you will be able to return to home. Plan of Treatment: 1. Control of your pain from all of your fractures 2. Time to heal your fractures 3. Start physical therapy in the next couple of weeks once your pain is better Care Goals: To get strong enough to return to home Assessment: Patient understands care goals and plan - SNF / [facility] Transition Orders Admit to (Facility): [facility] Under the care of (Name): Jose Meng MD Discharge Diagnosis: 1. Metabolic encephalopathy 2. Left upper quadrant abdominal pain due to constipation 3. Pubic bone fracture 3. Proximal humerus fracture 4. History of COPD 5. History of fibromyalgia 6. Rheumatoid arthritis next #7 history of pancreatic cancer 8. Hypothyroidism 9. Chronic thrombocytosis Weight on admission and: Monthly Other Notification Orders: Call PCP immediately if patient develops dyspnea, chest pain/tightness or edema. Additional Bowel Program Orders: If no BM after 2 days, nurse may give M.O.M. 30ml PO PRN and/or ducolax Supp 1 OK and/or ALTAF 250mg P.O., and/or senna 1-2 tabs PO. On day 3 nurse may give repeat above order until residents constipation is resolved. Annual Influenza Vaccine (between Jan 11 and August 10): Yes Two-step PPD per [facility] [id number] or approved exception documents: Yes Oxygen Orders: 2 to 4 L nasal cannula 24 hours a day to maintain O2 sats no greater than 92% Medication Orders: PLEASE REFER TO THE DISCHARGE MEDICATION LIST. Insulin Orders?: No - Medications New Prescriptions: Lidocaine Patch 5% [Lidoderm Patch] 1 patch TOP DAILY PRN #5 patch PRN Reason: Pain HYDROcod/ACETAM 5/325 [Lynn 5/325] 1 - 2 tablet PO Q6H PRN #30 tablet PRN Reason: Pain ALPRAZolam [Xanax] 0.5 mg PO TID PRN #45 tablet PRN Reason: Anxiety - Diet Type: Geriatric Texture: Regular Liquids: Thin May have monthly special meal: Yes - Therapies | Activity Therapy: Evaluation | Treat if indicated: PT (with bath aide), OT (home healthy) Rehabilitation Potential: Maximize functional status, Return to independent living Activity: Activity as Tolerated Weight Bearing: Other (Left arm sling for comfort 1-2 weeks. Can get out of sling if wants, just no lifting >1 lb. After 2 weeks can start ROM passive exercises with PT. For pubic fx, weight bearing as tolerated) Assistance Devices: Wheelchair, Walker Follow Up: See orthopedics in 2-3 weeks for followup See primary care provider for fu in 2 weeks."
[2020-10-08] MEDS: BUDESONIDE 0.5 MG/2 ML NEB INH SCH (07:39)
[2020-10-08] MEDS: FORMOTEROL FUMARATE NEB 20 MCG/2 ML INH SCH (07:39)
[2020-10-08] MEDS ORDERED: POTASSIUM CHLORIDE 20 MEQ TABLET PO ONE (07:41)
[2020-10-08] MEDS: DULoxetine 30 MG CAPSULE PO SCH (08:26)
[2020-10-08] MEDS: HYDROXYCHLOROQUINE 200 MG TABLET PO SCH (08:26)
[2020-10-08] MEDS: predniSONE 10 MG TABLET PO SCH (08:27)
[2020-10-08] MEDS: DOCUSATE SODIUM 250 MG CAPSULE PO SCH (08:56)
[2020-10-08] MEDS: ENOXAPARIN 40 MG/0.4 ML SYRINGE SUBQ SCH (08:56)
[2020-10-08] MEDS: SODIUM CHLORIDE FLUSH 0.9% 10 ML SYRINGE IVP SCH (08:57)
[2020-10-08] MEDS: polyethylene glycoL 3350 17 GM PACKET PO SCH (08:57)
[2020-10-08] MEDS: SENNA 8.6 MG TABLET PO SCH (08:57)
[2020-10-08] MEDS: FLUTICASONE NASAL SPRAY NAS SCH (08:57)
[2020-10-08 12:56] VITALS: BP 106/55
--- NOTE | 2020-10-08 14:38 | DISCHARGE SUMMARY ---
"Discharge Summary Admit Date: 10/05/20 Discharge Date: 10/08/20 Discharging Provider: Jessica Savage MD Primary Care Provider: Jose Meng MD Code Status: Do Not Attempt Resuscitation Condition at Discharge: Stable Discharge Disposition: 01 Home, Self Care Discharge [facility] Name: [facility] - DIAGNOSES Discharge Diagnoses with Status of Each Condition: 1. Metabolic encephalopathy 2. Left upper quadrant abdominal pain due to constipation 3. Pubic bone fracture present on admission 3. Proximal humerus fracture present on admission 4. History of COPD 5. History of fibromyalgia 6. Rheumatoid arthritis next 7. history of pancreatic cancer 8. Hypothyroidism 9. Chronic thrombocytosis 10. Fall at home 11. Acute pain from fracture 12. Abnormal CT of head needing followup MRI 13. Hypokalemia - HPI History of Present Illness: This is a 69-year-old female with a past medical history significant for COPD, chronic respiratory failure on 4 L of oxygen, hypothyroidism, rheumatoid arthritis, history of pancreatic cancer who presents today due to poor appetite and decreased mobility at home. Today is her fourth visit to the emergency department in less than 1 week. It all began on 29 September when she fell at home while trying to go up the stairs. She landed on her left side and fractured one left rib as well as the proximal left humerus and a left pelvic fracture. Since then, her pain has been difficult to control and she has been more sedentary due to pain with any movement. Her appetite has decreased and she has had limited p.o. intake. She has been drinking fluids but only ate one sandwich today and yesterday she did not eat much more. She lives at home with her son and he tells me it is difficult to take care of her in her current condition. He was quite concerned that today she was much more lethargic and seemed a little confused compared to her usual self. She was asked to decrease her hydrocodone a couple of days ago she was having hallucinations. She states she is on chronic hydrocodone for pain and that she is used to opiates. She denies taking any narcotics today and she is not sure if she took her usual morning medications. Her son feels she is improved at this time but still not at her baseline. Her answers are still delayed and she is still intermittently confused. The patient denies any fevers, chills. She does complain of rashida rtness of breath but denies a cough or chest pain. She denies any lower extremity edema or calf pain. She is not on any anticoagulants or aspirin at home. She does complain of abdominal pain and reports feeling nauseous. She does not had any emesis. She normally has chronic diarrhea and has 3-4 bowel movements a day but reports not having a bowel movement since her fall nearly 1 week ago. She is also not passing gas. She denies any dysuria, urgency. She does have a history of significant bowel interventions in the past for her history of pancreatic cancer as well as a colectomy for history of Crohn's disease. Given the change in her mental status and her decreased mobility, medicine was consulted for admission. I did discuss goals of care with the patient and she would like to be a DNR. - Past Medical History Cardiovascular: reports: None Respiratory: reports: Asthma, COPD Neuro: reports: Headaches Endocrine/Autoimmune: reports: HyPOthyroidism GI: reports: GERD, Crohn's disease, Other (History of pancreatic cancer.) : reports: Incontinence, Frequency HEENT: reports: Other Psych: reports: Depression, Anxiety Musculoskeletal: reports: Fibromyalgia, Rheumatoid arthritis Derm: reports: None MRSA Hx?: No - Past Surgical History General: reports: Cholecystectomy, Bowel surgery, Other (Hemicolectomy in 1992 for Crohn's disease. 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 Head CT with no acute intracranial findings. She has a right middle cranial fossa arachnoid cyst. She will need an outpatient MRI to follow-up with that. With and without gadolinium recommended. She also has evidence of chronic sinus disease. 2. Chest thorax CT angiogram with mild bilateral pleural effusions, left rib fractures without pneumothorax. No PE. 3. Abdomen pelvis CT with a new symphysis pubis fracture. Chronic prominent elevation of the right hemidiaphragm. Small right hepatic lobe when compared to the left hepatic lobe and suspect prior partial right liver resection. Absent spleen, prior cholecystectomy. Mild to moderate colonic obstipation. No diverticulitis or appendicitis. 4. Chest CT with prominently elevated right hemidiaphragm. Lungs are clear. - HOSPITAL COURSE Hospital Course: Evaluation of the patient found her to have a pubic bone fracture seen on plain film October [address] of the abdomen was done the day after admission. She had a new left symphysis pubic fracture, mild to moderate colonic obstipation, no evidence of diverticulitis or appendicitis. She was continued on her sling for the acute comminuted and impacted proximal humeral neck fracture that was involving the greater and lesser tuberosities. These were both present on admission and secondary to her falls at home. Metabolic encephalopathy gradually improved. But the patient remained with a cognitive deficit and slow to respond affect. We reduced opiate use while she was in the hospital but balance with need for pain management. She was finally awake enough to tell us herself that her pain was not controlled enough and she asked to resume her ga bapentin from home. She had a bowel movement. Physical therapy evaluated her and they felt that she was stable enough for discharge to a facility with home health PT/OT, bath aide. Her son felt that he could not bring her home to take care of her and asked that she be placed in an assisted living facility. By discharge the son felt that mom was at baseline and she was alert and oriented. During her stay her TSH was evaluated. She was felt to have a significantly low TSH and as such medications were adjusted. COPD remained stable during her stay. Fibromyalgia was treated with resumption of her home duloxetine and gabapentin. Rheumatoid arthritis pain was stable. Thrombocytosis was noted in her lab and she was asked to follow-up with her answering service agent oncologist. We did discuss her management with orthopedic surgery. Orders were written in the discharge orders to the assisted living facility with regards to weightbearing status and use of her affected broken arm.She should also have follow-up TSH and free T4 testing done in the next 3 to 4 weeks to follow-up on change on medication.MRI of the brain with and without gadolinium should be ordered in the outpatient setting. At discharge temperature was 36.4. Pulse 86. Blood pressure 106/55. Respirations 18 and unlabored. 99% on 2 L nasal cannula. She is on home O2 at 2 L and that is what she was sent back to the assisted living facility with. Orthostatic blood pressure was done on her. Supine she was 148/80. Sitting she was 152/82. In standing she was 144/80. She had clear lungs. Diminished breath sounds at the bases. No acute respiratory distress. Abdomen was with hypoactive bowel sounds, nontender. However every once in all she she would have cramping especially associated with the need to go to the bathroom. She was independent with getting up to the bathroom as long as there is a standby assist and a walker. She describes her pain in her pelvic region is an 8 out of a 10. She was not happy about going to the assisted living facility. But she was oriented to person, place, time. Occasionally she would be forgetful. But she was able to feed herself.At discharge she was given a dose of potassium to supplement her hypokalemia. Greater than 30 minutes was spent coordinating discharge. - ALLERGIES Allergies/Adverse Reactions: Allergies Allergy/AdvReac Type Severity Reaction Status Date / Time Penicillins Allergy Cramps Verified 10/05/20 18:50 - MEDICATIONS Home Medications: Ambulatory Orders Medication Instructions Recorded Confirmed RX: Albuterol 2.5 mg INH Q4H PRN 11/02/16 10/06/20 RX: Gabapentin 1,600 mg PO TID 11/02/16 10/06/20 RX: Hydroxychloroquine [Plaquenil] 200 mg PO BID 11/02/16 10/06/20 RX: Liothyronine [Cytomel] 5 mcg PO QDAC 11/02/16 10/06/20 RX: Oxybutynin [Ditropan] 5 mg PO DAILY 11/02/16 10/06/20 RX: modafiniL [Modafinil] 200 mg PO DAILY 11/02/16 10/06/20 RX: predniSONE [Prednisone] 10 mg PO DAILY 11/02/16 10/06/20 RX: Duloxetine HCl [Cymbalta] 120 mg PO DAILY 09/30/20 10/06/20 RX: Fluticasone Propion/Salmeterol 1 each IH BID 09/30/20 10/06/20 [Wixela 500-50 Inhub] RX: Olopatadine HCl [Pataday] 2.5 ml OP DAILY PRN 09/30/20 10/06/20 RX: ALPRAZolam [Xanax] 0.5 mg PO TID PRN 10/06/20 10/06/20 RX: Colestipol HCl [Colestid] 2 gm PO BID 10/06/20 10/06/20 RX: Digestive 8/L.acidoph/Pectin 1 tab PO DAILY 10/06/20 10/06/20 [Digestive Enzymes Tablet] RX: Fluticasone [Flonase] 2 sprays HARPREET DAILY 10/06/20 10/06/20 RX: Levothyroxine Sodium 150 mcg PO DAILY 10/06/20 10/06/20 [Levothyroxine] RX: Naloxone HCl [Narcan] 1 spray HARPREET PRN PRN 10/06/20 10/06/20 RX: Pantoprazole Sodium [Protonix] 20 mg PO BID 10/06/20 10/06/20 RX: hydrOXYzine HCL [Hydroxyzine 25 mg PO QID PRN 10/06/20 10/06/20 HCl] RX: ALPRAZolam [Xanax] 0.5 mg PO TID PRN #45 tablet 10/08/20 RX: Acetaminophen [Tylenol] 1,000 mg PO TID PRN tablet 10/08/20 RX: HYDROcod/ACETAM 5/325 [[place] 1 - 2 tablet PO Q6H PRN #30 tablet 10/08/20 5/325] RX: Lidocaine Patch 5% [Lidoderm 1 patch TOP DAILY PRN #5 patch 10/08/20 Patch] Right Sided Alonso Walker 1 unit .ROUTE DAILY #1 10/08/20 - LABS Result Diagrams: 10/08/20 04:30 10/08/20 04:30 - SEPSIS Current Stage of Sepsis: Ruled out"
== END 2020-10-08 13:20 | disposition home health service (06) ==
LOC: EDUNIT# → SUPCPDRO 18:41 → ED 18:41 → MS2 22:47
PROVIDERS: ADMIT Internal Medicine; ATTEND Specialist
DX: G93.41 Metabolic encephalopathy (principal); K59.00 Constipation, unspecified; G89.11 Acute pain due to trauma; S32.502D Unspecified fracture of left pubis, subsequent encounter for fracture with routine healing; S42.252D Displaced fracture of greater tuberosity of left humerus, subsequent encounter for fracture with routine healing; S42.262D Displaced fracture of lesser tuberosity of left humerus, subsequent encounter for fracture with routine healing; S22.42XD Multiple fractures of ribs, left side, subsequent encounter for fracture with routine healing; W10.9XXD Fall (on) (from) unspecified stairs and steps, subsequent encounter; W19.XXXD Unspecified fall, subsequent encounter; J96.10 Chronic respiratory failure, unspecified whether with hypoxia or hypercapnia; J43.9 Emphysema, unspecified; M06.9 Rheumatoid arthritis, unspecified; M79.7 Fibromyalgia; E03.9 Hypothyroidism, unspecified; D47.3 Essential (hemorrhagic) thrombocythemia; G93.0 Cerebral cysts; E87.6 Hypokalemia; R62.7 Adult failure to thrive; Z68.26 Body mass index [BMI] 26.0-26.9, adult; K50.90 Crohn's disease, unspecified, without complications; K21.9 Gastro-esophageal reflux disease without esophagitis; R32 Unspecified urinary incontinence; R35.0 Frequency of micturition; F32.9 Major depressive disorder, single episode, unspecified; F41.9 Anxiety disorder, unspecified; J32.9 Chronic sinusitis, unspecified; Z74.09 Other reduced mobility; Z66 Do not resuscitate; Z99.81 Dependence on supplemental oxygen; Z20.822 Contact with and (suspected) exposure to COVID-19; Z79.891 Long term (current) use of opiate analgesic; Z79.52 Long term (current) use of systemic steroids; Z79.899 Other long term (current) drug therapy; Z85.07 Personal history of malignant neoplasm of pancreas; Z90.49 Acquired absence of other specified parts of digestive tract; Z90.411 Acquired partial absence of pancreas; Z87.891 Personal history of nicotine dependence
CPT/HCPCS: 36415; 51702; 70450; 71045; 71275; 74177; 80048; 80053; 81003; 83605; 83690; 83735; 84443; 84484; 85025; 87631; 93005; 94640; 96372; 96374; 96375; 96376; 97165; 97530; 99285; A9270; G0378; J1650; J7120; J7626; Q9967; 0202U; 81001; 87086

== ENCOUNTER 2020-10-08 13:37 | Outpatient (CLI) | payer MEDICARE | END 2020-10-08 13:38 | disposition other institution (70) | LOC: EMS 13:37 | PROVIDERS: ATTEND Specialist | DX: S22.39XD Fracture of one rib, unspecified side, subsequent encounter for fracture with routine healing (principal); S32.009D Unspecified fracture of unspecified lumbar vertebra, subsequent encounter for fracture with routine healing; S42.92XD Fracture of left shoulder girdle, part unspecified, subsequent encounter for fracture with routine healing; S32.509D Unspecified fracture of unspecified pubis, subsequent encounter for fracture with routine healing; S32.9XXD Fracture of unspecified parts of lumbosacral spine and pelvis, subsequent encounter for fracture with routine healing; S42.309D Unspecified fracture of shaft of humerus, unspecified arm, subsequent encounter for fracture with routine healing; Z74.01 Bed confinement status | CPT/HCPCS: A0425; A0428 ==

== ENCOUNTER 2021-06-13 08:38 | Outpatient (CLI) | payer MEDICARE ==
[2021-06-13 08:53] LABS: BASOPHILS % (AUTO) 1.2 %; EOSINOPHILS % (AUTO) 14.8 %; HCT - HEMATOCRIT 37.6 % (37.0-47.0); HGB - HEMOGLOBIN 11.6 g/dL (12.0-16.0); LYMPHOCYTES % (AUTO) 42.8 %; MEAN CORPUSCULAR HEMOGLOBIN 29.3 pg (27.0-31.0); MEAN CORPUSCULAR HGB CONC 30.9 g/dL (32.0-36.0); MEAN CORPUSCULAR VOLUME 94.9 fL (81.0-99.0); MEAN PLATELET VOLUME 9.1 fL (7.9-10.8); NEUTROPHILS % (AUTO) 33.9 %; PLT - PLATELET COUNT 692 10^3/uL (130-450); RED BLOOD COUNT 3.96 10^6/uL (4.20-5.40); RED CELL DISTRIBUTION WIDTH 15.9 % (12.0-15.0); WHITE BLOOD COUNT 7.6 x10^3/uL (4.8-10.8)
[2021-06-13 08:56] LABS: ABNORMAL LYMPHS % (MANUAL) 0 %; BAND NEUTROPHILS % (MANUAL) 0 %
[2021-06-13 09:23] LABS: ALBUMIN 4.2 g/dL (3.2-5.5); ALBUMIN/GLOBULIN RATIO 1.4 (1.0-2.2); BILIRUBIN,TOTAL 0.6 mg/dL (0.2-1.0); CALCIUM 9.7 mg/dL (8.5-10.3); CREATININE 0.7 mg/dL (0.4-1.0); POTASSIUM 4.4 mmol/L (3.5-5.0); TOTAL PROTEIN 7.3 g/dL (6.7-8.2)
[2021-06-13 09:44] LABS: BASOPHILS # (MANUAL) 0.1 10^3/uL (0-0.1); BASOPHILS % (MANUAL) 1 %; LYMPHOCYTES # (MANUAL) 3.3 10^3/uL (1.5-3.5); LYMPHOCYTES % (MANUAL) 40 %; MONOCYTES # (MANUAL) 0.4 10^3/uL (0.0-1.0); NEUTROPHILS # (MANUAL) 3.8 10^3/uL (1.5-6.6); REACTIVE LYMPHS % (MANUAL) 4 %
[2021-06-13 09:54] LABS: DIFFERENTIAL COMMENT MANUAL DIFFERENTIAL
[2021-06-13 09:55] LABS: PLATELET ESTIMATE, MANUAL INCREASED (>450,000) (NORMAL); WBC MORPHOLOGY (MULTIPLE) 1+ REACTIVE LYMPHS (NORMAL)
[2021-06-13] MEDS ORDERED: GADOBUTROL 7.5 MMOL/7.5 ML VIAL ONE (10:38)
[2021-06-13] MEDS ORDERED: GADOBUTROL 7.5 MMOL/7.5 ML VIAL IVP ONE (16:06)
--- NOTE | 2021-06-13 17:25 | MRI Report ---
PROCEDURE: Abdomen W/WO INDICATIONS: PANCREATIC NEUROENDOCRINE TUMOR CONTRAST: IV CONTRAST: Gadavist ml: 6.7 TECHNIQUE: Coronal ultra fast SE, axial 2D spoiled GE in- and [id number]; axial breath-hold T2 fast SE. Dynam ic axial ultra fast GE during the administration of contrast; post-contrast coronal ultra fast GE or 2D spoiled GE with fat saturation from the hepatic dome to the iliac crests. Optional diffusion weig hted imaging and ADC may be performed. COMPARISON: CT abdomen and pelvis 10/06/2020, 09/30/2020. FINDINGS: Image quality: Good. Lung bases: No basal pleural effusions. Heart size is normal. Solid organs: Diffuse hypointense T2 signal of the liver. No hyperenhancing observation. Gallbladder is absent. Biliary system is non dilated. Post Whipple procedure. Pancreas is atrophic. No hyperen hancing hepatic lesion is identified. No pancreatic ductal dilatation. No adrenal nodules. Both kidn eys demonstrate normal size and enhancement, without hydronephrosis. Small cyst in the right kidney. Nodes and vessels: No retroperitoneal or mesenteric adenopathy by size criteria. Aorta and inferior vena cava are normal in size. Bowel and peritoneum: Unenhanced bowel loops are normal in caliber. No free fluid. Bones and soft tissues: No ventral hernias. Bone marrow is normal in overall signal. IMPRESSION: 1. Post Whipple procedure. No pancreatic lesion is identified. 2. No focal hepatic lesion is identified. 3. Diffuse hypointense T2 signal of the liver. This finding could be seen in iron deposition. Reviewed by: Rakan Cosme MD on 06/13/2021 5:24 PM [facility] Approved by: Rakan Cosme MD on 06/13/2021 5:24 PM PST Station ID: [id number]
== END 2021-06-13 08:39 | disposition home or self-care (01) ==
LOC: DI 08:38
PROVIDERS: ATTEND Physician Assistant
DX: C7B.8 Other secondary neuroendocrine tumors (principal); C7A.8 Other malignant neuroendocrine tumors; R93.2 Abnormal findings on diagnostic imaging of liver and biliary tract; Z90.411 Acquired partial absence of pancreas
CPT/HCPCS: 36415; 74183; 80053; 82728; 83540; 84466; 85025; A9585

== ENCOUNTER 2023-06-17 21:07 | Emergency (ER) | payer MEDICARE ==
[2023-06-18 01:54] LABS: BASOPHILS # (AUTO) 0.2 10^3/uL (0.0-0.1); BASOPHILS % (AUTO) 1.7 %; EOSINOPHILS # (AUTO) 0.8 10^3/uL (0.0-0.7); EOSINOPHILS % (AUTO) 8.3 %; HGB - HEMOGLOBIN 11.2 g/dL (12.0-16.0); LYMPHOCYTES # (AUTO) 4.2 10^3/uL (1.5-3.5); LYMPHOCYTES % (AUTO) 44.8 %; MEAN CORPUSCULAR HEMOGLOBIN 31.6 pg (27.0-31.0); MEAN CORPUSCULAR HGB CONC 31.1 g/dL (32.0-36.0); MEAN CORPUSCULAR VOLUME 101.7 fL (81.0-99.0); MEAN PLATELET VOLUME 9.3 fL (7.9-10.8); MONOCYTES # (AUTO) 0.6 10^3/uL (0.0-1.0); NEUTROPHILS # (AUTO) 3.6 10^3/uL (1.5-6.6); NEUTROPHILS % (AUTO) 38.9 %; PLT - PLATELET COUNT 438 10^3/uL (130-450); RED BLOOD COUNT 3.54 10^6/uL (4.20-5.40); RED CELL DISTRIBUTION WIDTH 13.4 % (12.0-15.0); WHITE BLOOD COUNT 9.3 x10^3/uL (4.8-10.8)
[2023-06-18 02:14] LABS: ALBUMIN/GLOBULIN RATIO 1.7 (1.0-2.2); ALKALINE PHOSPHATASE 48 IU/L (42-121); ALT ALANINE AMINOTRANSFERASE 17 IU/L (10-60); AST ASPARTATE AMINOTRANSFERASE 21 IU/L (10-42); BILIRUBIN,TOTAL 1.3 mg/dL (0.2-1.0); BUN - BLOOD UREA NITROGEN 7 mg/dL (6-20); CALCIUM 9.4 mg/dL (8.5-10.3); CARBON DIOXIDE - CO2 37 mmol/L (21-32); CHLORIDE 99 mmol/L (101-111); CREATININE 0.6 mg/dL (0.6-1.3); GFR - MDRD 98 (>89); GLUCOSE 99 mg/dL (74-104); LIPASE < 10 U/L (11-82); POTASSIUM 3.6 mmol/L (3.5-4.5); SODIUM 139 mmol/L (135-145); TOTAL PROTEIN 6.4 g/dL (6.4-8.9)
--- NOTE | 2023-06-18 04:34 | ED Physician Documentation ---
PD HPI ALTERED MENTAL STATUS - Stated complaint Stated Complaint: DIZZY/DISORIENTED - Chief complaint Chief Complaint: Neuro - History obtained from History obtained from: Patient, Family (daughter (in ED at bedside)) - Additional information Additional information: HPI is from patient as well as patient's daughter (in ED at patient's bedside). Patient has had dizziness, disorientation, stuttering speech patterns, auditory hallucinations, and tactile sensations without appropriate stimulus. The symptoms started 1 week ago without inciting event. She has not had the symptoms before. The daughter says that the symptoms improved but never resolved and, over the past 1 to 2 days, have been gradually worsening. They also note balance issues manifest as unsteady gait, but they attribute this to ongoing ear problems. No recent injuries including head injury. No recent falls. No fevers noted at home. The patient does not offer headache as a chief complaint, but on review of systems, the patient says she has had significant generalized headaches over the past week. Regarding the auditory hallucinations, the patient says that she feels as if there has been a radio left on that she hears at times despite knowing that there is no radio that is in her room. She has been hearing music that is not being played. Regarding the tactile sensations that are without appropriate stimulus, the patient says she has episodes where she feels as if fingers are running up and down her body when there is no such stimulus. Patient denies any pain aside from headache. She denies weakness, numbness, visual changes. Review of Systems Constitutional: denies: Fever, Chills, Fatigue, Sweats Eyes: denies: Loss of vision, Decreased vision Cardiac: reports: Reviewed and negative Respiratory: reports: Reviewed and negative GI: reports: Reviewed and negative : denies: Dysuria, Frequency Neurologic: reports: Headache. denies: Generalized weakness, Focal weakness, Numbness PD PAST MEDICAL HISTORY - Past Medical History Past Medical History: Yes Cardiovascular: None Respiratory: Asthma, COPD, Other Neuro: Headaches Endocrine/Autoimmune: HyPOthyroidism GI: GERD, Crohn's disease : Incontinence, Frequency HEENT: Other Psych: Depression, Anxiety Musculoskeletal: Fibromyalgia, Rheumatoid arthritis Derm: None - Past Surgical History Past Surgical History: Yes General: Cholecystectomy, Bowel surgery, Other /SOLUTIONS MANAGER: section, Other HEENT: Cataracts Derm: Other - Present Medications Home Medications: Ambulatory Orders Medication Instructions Recorded Confirmed Albuterol 2.5 mg INH Q4H PRN 11/02/16 12/25/21 Gabapentin 1,600 mg PO TID 11/02/16 12/25/21 Hydroxychloroquine [Plaquenil] 200 mg PO BID 11/02/16 12/25/21 Liothyronine [Cytomel] 5 mcg PO QDAC 11/02/16 12/25/21 Oxybutynin [Ditropan] 5 mg PO DAILY 11/02/16 12/25/21 modafiniL [Modafinil] 200 mg PO DAILY 11/02/16 12/25/21 predniSONE [Prednisone] 10 mg PO DAILY 11/02/16 12/25/21 Duloxetine HCl [Cymbalta] 120 mg PO DAILY 09/30/20 12/25/21 Fluticasone Propion/Salmeterol 1 each IH BID 09/30/20 12/25/21 [Wixela 500-50 Inhub] Olopatadine HCl [Pataday] 2.5 ml OP DAILY PRN 09/30/20 12/25/21 Colestipol HCl [Colestid] 2 gm PO BID 10/06/20 12/25/21 Digestive 8/L.acidoph/Pectin 1 tab PO DAILY 10/06/20 12/25/21 [Digestive Enzymes Tablet] Fluticasone [Flonase] 2 sprays HARPREET DAILY 10/06/20 12/25/21 Levothyroxine Sodium 150 mcg PO DAILY 10/06/20 12/25/21 Naloxone HCl Nasal [Narcan Nasal] 1 spray HARPREET PRN PRN 10/06/20 12/25/21 Pantoprazole Sodium [Protonix] 20 mg PO BID 10/06/20 12/25/21 hydrOXYzine HCL [Hydroxyzine HCl] 25 mg PO QID PRN 10/06/20 12/25/21 Acetaminophen [Tylenol] 1,000 mg PO TID PRN tablet 10/08/20 12/25/21 HYDROcod/ACETAM 5/325 [[place] 5/325] 1 - 2 tablet PO Q6H PRN #30 tablet 10/08/20 12/25/21 Lidocaine Patch 5% [Lidoderm Patch] 1 patch TOP DAILY PRN #5 patch 10/08/20 0 12/25/21 - Allergies Allergies/Adverse Reactions: Allergies Allergy/AdvReac Type Severity Reaction Status Date / Time Penicillins Allergy Cramps Verified 06/17/23 21:11 - Social History Does the pt smoke?: No Smoking Status: Never smoker Does the pt drink ETOH?: No Does the pt have substance abuse?: No - Immunizations Immunizations are current?: Yes Immunizations: TDAP current <10years - POLST Patient has POLST: No PD ED PE NORMAL - Vitals Vital signs reviewed: Yes - General General: Alert and oriented X 3 (answers orientation questions rapidly and accurately), No acute distress, Well developed/nourished - HEENT HEENT: Atraumatic, PERRL, EOMI, Moist mucous membranes, Other (normal left ear exam. right ear has small amt cerumen and a blue myringotomy tube is partially visualized although the cerumen obscures whether the tube is still in TM (visualized portion appears to be more likely perpindicular, and thus dislodged, from TM)) - Neck Neck: Supple, no meningeal sign - Cardiac Cardiac: RRR, No murmur - Respiratory Respiratory: No respiratory distress, Clear bilaterally - Abdomen Abdomen: Soft, Non tender - Derm Derm: Normal color, Warm and dry - Extremities Extremities: No edema - Neuro Neuro: Alert and oriented X 3, mingler operator 2-12 intact, No motor deficit (5/5 bilateral cement paver, 5/5 bilateral dorsi/plantarflexion), No sensory deficit (LTS intact on face, BUE, BLE), Other (occasional stuttering/stammering speech but otherwise coversant, appropriate, articulate) Eye Opening: Spontaneous Motor: Obeys Commands Verbal: Oriented GCS Score: 15 - Psych Psych: Normal mood, Normal affect Results - Vitals Vitals: Vital Signs - 24 hr 06/17/23 06/18/23 06/18/23 21:11 03:13 05:00 Temperature 36.8 C Heart Rate 87 75 77 Respiratory 16 26 H 19 Rate Blood Pressure 138/88 H 155/87 H O2 Saturation 98 100 98 If not protocol 3.5 3.5 : Oxygen Flow, liters/minute 06/18/23 07:00 Temperature Heart Rate 79 Respiratory 18 Rate Blood Pressure 126/65 O2 Saturation 99 If not protocol 3.5 : Oxygen Flow, liters/minute Oxygen O2 Source [Without Activity] Nasal cannula O2 Source Nasal cannula - EKG (time done) No standard instances EKG releavant findings:: EKG personally interpreted by author of this note. Relevant findings are: Rate: Rate (enter#) (75) Rhythm: NSR [place]: Normal Intervals: Normal KS QRS: Normal Ischemia: Normal ST segments Other comments: Other comments (artifact in inferior leads but not to an extent that precludes interpretation) - Labs Labs: Laboratory Tests 06/18/23 06/18/23 01:46 01:46 WBC 9.3 RBC 3.54 L Hgb 11.2 L Hct 36.0 L MCV 101.7 H MCH 31.6 H MCHC 31.1 L RDW 13.4 Plt Count 438 MPV 9.3 Neut # (Auto) 3.6 Lymph # (Auto) 4.2 H Bertie # (Auto) 0.6 Eos # (Auto) 0.8 H Baso # (Auto) 0.2 H Absolute Nucleated RBC 0.00 Nucleated RBC % 0.0 Sodium 139 Potassium 3.6 Chloride 99 L Carbon Dioxide 37 H Anion Gap 3.0 L BUN 7 Creatinine 0.6 Estimated GFR (MDRD) 98 Glucose 99 Calcium 9.4 Total Bilirubin 1.3 H AST 21 ALT 17 Alkaline Phosphatase 48 Total Protein 6.4 Albumin 4.0 Globulin 2.4 Albumin/Globulin Ratio 1.7 Lipase < 10 L - Rads (name of study) CTA head/neck Relevant Findings:: Prelim report reviewed, See rad report PD Medical Decision Making - ED course Complexity details: reviewed results, re-evaluated patient, considered differential, d/w patient, d/w family ED course: No concerning nor diagnostic findings on CBC, ER abdominal panel. As noted in physical exam, above, the patient is awake, alert, oriented x 3. Her speech is fluent, appropriate, articulate, and appropriate with the only exception being occasional stuttering/stammering speech. Regarding the tactile and auditory hallucinations, the patient is indicating that she is well aware that these are hallucinations (patient is not delusional). The patient notes that there was an intracranial lesion on previous study and she asks if this might be etiology of these symptoms. In looking at previous studies, I note CT head performed October 05, 2020 which was interpreted as "findings suggestive of a right middle cranial fossa arachnoid cyst." The patient says she did have a follow-up MRI, although I do not see this in the records available to me. It is unlikely that the arachnoid cyst is causing/contributing to the symptoms, but the patient symptoms indicate emergent imaging regardless. I have ordered CTA of the head and neck, the results are pending at the end of my shift. Care of the patient is turned over to the oncoming ED physician (Dr. Rollins) at the end of my shift pending results of the CT studies. Departure - Departure Forms: PCP List
[2023-06-18] MEDS ORDERED: iohexoL-300 100 ML VIAL ONE (05:23)
[2023-06-18] MEDS: HYDROcod/ACETAM 5/325 MG TABLET PO STA (08:57)
[2023-06-18] MEDS: ONDANSETRON 4 MG/2 ML VIAL IVP STA (09:26)
[2023-06-18 09:35] VITALS: BP 133/72; O2SAT 98
--- NOTE | 2023-06-18 09:49 | CT Report ---
PROCEDURE: Angio Head/Neck INDICATIONS: AMS, ABAD TECHNIQUE: After the administration of intravenous contrast, 1 mm thick sections acquired from the aortic arch t hrough the [place]. 3-dimensional yhxwcih-zpusgmxvc-rgfaxtbmxy (MIP) and/or volume renderin g reformats were acquired of the central intracranial vasculature and neck separately. For radiation dose reduction, the following was used: automated exposure control, adjustment of mA and/or kV acco rding to patient size. COMPARISON: None. FINDINGS: Image quality: Diagnostic. HEAD CT: The ventricular system and cortical sulci demonstrate atrophy, consistent for patient's stated age. There are areas of hypodensity in the periventricular and subcortical white matter. There is no acut e intra or extra-axial fluid collection. No acute hemorrhage, mass lesion or midline shift. Brainst em is unremarkable. Globes are symmetrical. Sinuses are aerated. Osseous structures are intact. HEAD CT ANGIOGRAPHY: Anterior circulation: Intracranial internal carotid arteries are normal in size and flow. The flow within the paired anterior cerebral arteries is normal and symmetric. The flow within the middle cer ebral arteries is normal and symmetric. The anterior communicating artery is seen. No aneurysms are seen. Posterior circulation: Vertebral. Visualized portions of the vertebral arteries demonstrate normal c aliber, and join to form a normal appearing basilar artery. Flow within the posterior cerebral arter ies is normal and symmetric. No aneurysms are seen. NECK CT ANGIOGRAPHY: Carotid system: The great vessels demonstrate a bovine arch, consistent with congenital variation. T he origins of the common carotid arteries appear patent. The common carotid arteries demonstrate nor mal caliber and courses. The bifurcation regions are both widely patent. The internal carotid arter ies demonstrate normal calibers and courses. Posterior circulation: The origins of the vertebral arteries both appear widely patent. The more monroe perior extracranial portions of both vertebral arteries also demonstrate normal courses and calibers. They join to form a normal appearing basilar artery. Soft tissues: Visualized neck soft tissues demonstrate no suspicious abnormalities. Bones: No suspicious bony lesions. Visualized cervical spine appears normally aligned. IMPRESSION: 1. No acute intracranial process. 2. Mild to moderate atrophy and chronic microvascular ischemic changes. 3. No areas of hemodynamically significant stenosis, vascular occlusion or aneurysmal dilation within the anterior circulation. 4. No areas of hemodynamically significant stenosis, vascular occlusion or aneurysmal dilation within the posterior circulation. 5. There are no areas of hemodynamically significant stenosis, vascular occlusion or aneurysmal dilat ion within the neck vasculature. The estimate of stenosis included in the report of the imaging study was calculated using the NASCET method Reviewed by: Nesha Sneed MD on 06/18/2023 9:47 AM PST Approved by: Nesha Sneed MD on 06/18/2023 9:47 AM [facility] Station ID: [id number]
--- NOTE | 2023-06-18 09:59 | ED Physician Documentation ---
ED Addendum - Addendum Addendum: 06/18/23 Patient signed out to me at shift change pending results of CT angio and plan for discharge if no significant findings on angio reports. Stroke was not suspected. 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 IMPRESSION: 1. No acute intracranial process. 2. Mild to moderate atrophy and chronic microvascular ischemic changes. 3. No areas of hemodynamically significant stenosis, vascular occlusion or aneurysmal dilation within the anterior circulation. 4. No areas of hemodynamically significant stenosis, vascular occlusion or aneurysmal dilation within the posterior circulation. 5. There are no areas of hemodynamically significant stenosis, vascular occlusion or aneurysmal dilation within the neck vasculature. The estimate of stenosis included in the report of the imaging study was calculated using the NASCET method Reviewed results with patient and daughter. They would like to go home. Symptoms been ongoing for a week. They understand the importance of close follow-up with primary care as well as return for any worsening. Departure - Departure Disposition: 01 Home, Self Care Clinical Impression: Hallucinations, Stuttering Condition: Stable Instructions: ED Dizziness [facility] Follow-Up: Jose Meng MD [Primary Care Provider] - Prescriptions: Ondansetron Odt [Zofran] 4 mg TL Q6H PRN #10 tablet PRN Reason: Nausea / Vomiting Comments: Please follow-up with your primary care provider regarding your symptoms. I sent a prescription to [facility] in [place] for an antinausea medication. Return to the ER with any new or worsening symptoms. Forms: PCP List Discharge Date/Time: 06/18/23 10:21
[2023-06-18] MEDS: iohexoL-300 100 ML VIAL IVP ONE (10:26)
== END 2023-06-18 10:21 | disposition home or self-care (01) ==
LOC: ED 21:07
DX: R42 Dizziness and giddiness (principal); R41.0 Disorientation, unspecified; R44.0 Auditory hallucinations
CPT/HCPCS: 36415; 70496; 70498; 80053; 83690; 85025; 93005; 96374; 99284; A9270; Q9967

== ENCOUNTER 2023-09-29 22:55 | Outpatient (CLI) | payer MEDICARE | END 2023-09-29 22:56 | disposition critical access hospital (66) | LOC: EMS 22:55 | DX: R06.00 Dyspnea, unspecified (principal); Z99.81 Dependence on supplemental oxygen; J44.9 Chronic obstructive pulmonary disease, unspecified; R00.0 Tachycardia, unspecified | CPT/HCPCS: A0425; A0427 ==

== ENCOUNTER 2023-09-29 23:11 | Emergency (ER) | payer MEDICARE ==
--- NOTE | 2023-09-29 23:31 | ED Physician Documentation ---
History of Present Illness - Stated complaint Stated Complaint: SOA - Chief complaint Chief Complaint: Resp - History obtained from History obtained from: Patient, EMS - Additonal information Additional information: The patient comes to the emergency department chief complaint of COPD/asthma exacerbation. Patient has nebulizer treatments available at home which she has been taking, but it seem like it was not helping. She is only called 911 because she felt she could not breathe at home. She states she feels a lot better after being started on an albuterol neb by the medics and route. She den ies recent fevers. She has a chronic cough. She is on 3.5 L of oxygen [id number] at home. No other complaints at this time. No swelling. No history of heart problems. PD PAST MEDICAL HISTORY - Past Medical History Past Medical History: Yes Cardiovascular: None Respiratory: Asthma, COPD, Other Neuro: Headaches Endocrine/Autoimmune: HyPOthyroidism GI: GERD, Crohn's disease : Incontinence, Frequency HEENT: Other Psych: Depression, Anxiety Musculoskeletal: Fibromyalgia, Rheumatoid arthritis Derm: None - Past Surgical History Past Surgical History: Yes General: Cholecystectomy, Bowel surgery, Other /[employer]EVERAGE: section, Other HEENT: Cataracts Derm: Other - Present Medications Home Medications: Ambulatory Orders Medication Instructions Recorded Confirmed Albuterol 2.5 mg INH Q4H PRN 11/02/16 09/29/23 Gabapentin 1,600 mg PO TID 11/02/16 09/29/23 Hydroxychloroquine [Plaquenil] 200 mg PO BID 11/02/16 09/29/23 Liothyronine [Cytomel] 5 mcg PO DAILY 11/02/16 09/29/23 Oxybutynin [Ditropan] 5 mg PO DAILY 11/02/16 09/29/23 modafiniL [Modafinil] 200 mg PO DAILY 11/02/16 09/29/23 predniSONE [Prednisone] 10 mg PO DAILY 11/02/16 09/29/23 Duloxetine HCl [Cymbalta] 120 mg PO DAILY 09/30/20 09/29/23 Fluticasone Propion/Salmeterol 1 spray IH BID 09/30/20 09/29/23 [Wixela 500-50 Inhub] Olopatadine HCl [Pataday] 2.5 ml OP DAILY PRN 09/30/20 09/29/23 Colestipol HCl [Colestid] 2 gm PO BID 10/06/20 09/29/23 Digestive 8/L.acidoph/Pectin 1 tab PO DAILY 10/06/20 09/29/23 [Digestive Enzymes Tablet] Fluticasone [Flonase] 2 sprays HARPREET DAILY 10/06/20 09/29/23 Levothyroxine Sodium 150 mcg PO DAILY 10/06/20 09/29/23 Naloxone HCl Nasal [Narcan Nasal] 1 spray HARPREET PRN PRN 10/06/20 09/29/23 Pantoprazole Sodium [Protonix] 20 mg PO BID 10/06/20 09/29/23 hydrOXYzine HCL [Hydroxyzine HCl] 25 mg PO QID PRN 10/06/20 09/29/23 Acetaminophen [Tylenol] 1,000 mg PO TID PRN tablet 10/08/20 09/29/23 ALPRAZolam [Alprazolam] 0.5 mg PO TID PRN 09/29/23 09/29/23 Ondansetron Odt [Zofran] 4 mg TL BID 09/29/23 09/29/23 Tezepelumab-Ekko [Tezspire] 210 mg SQ ONCE 09/29/23 09/29/23 buprenorphine HCL [Buprenorphine 2 mg SL TID 09/29/23 09/29/23 HCl] predniSONE [Deltasone] 10 mg PO [id number] #42 tab 09/30/23 - Allergies Allergies/Adverse Reactions: Allergies Allergy/AdvReac Type Severity Reaction Status Date / Time Penicillins Allergy Cramps Verified 09/29/23 23:28 - Social History Does the pt smoke?: No Smoking Status: Never smoker Does the pt drink ETOH?: No Does the pt have substance abuse?: No - Immunizations Immunizations are current?: Yes Immunizations: TDAP current <10years - POLST Patient has POLST: No PD ED PE NORMAL - Vitals Vital signs reviewed: Yes - General General: Alert and oriented X 3, Well developed/nourished, Other (Mild respiratory distress.) - HEENT HEENT: Atraumatic, EOMI, Moist mucous membranes - Neck Neck: Supple, no meningeal sign - Cardiac Cardiac: RRR, No murmur - Respiratory Respiratory: Other (Moderately diminished air movement bilaterally. Mild respiratory distress with some mild laboring respirations but speaking in full sentences.) - Abdomen Abdomen: Soft, Non tender, Non distended - Derm Derm: Normal color, Warm and dry, No rash - Extremities Extremities: No deformity, No edema, No calf tenderness / cord - Neuro Neuro: Other (Grossly oriented, grossly intact, alert.) - Psych Psych: Normal mood, Normal affect Results - Vitals Vitals: Oxygen O2 Source [Without Activity] Nasal cannula O2 Source Nasal cannula Oxygen Flow Rate 3.5 PD Medical Decision Making - ED course Complexity details: reviewed results, re-evaluated patient, considered differential, d/w patient ED course: The patient was given a DuoNeb and Decadron in the emergency department and worked up a chest x-ray. Chest x-ray was unremarkable. The patient was feeling much better after symptomatic treatment and wished to go home. I felt she was stable enough for this. Her oxygen saturation was in the low 90s on her baseline supplemental O2. We have discussed the usual indications for return and I have given her a prescription for prednisone. Departure - Departure Disposition: Home, Self Care Clinical Impression: COPD exacerbation Asthma exacerbation Qualifiers: Asthma severity: mild Asthma persistence: intermittent Qualified Code(s): J45.21 - Mild intermittent asthma with (acute) exacerbation Condition: Stable Instructions: COPD Dc Prescriptions: predniSONE [Deltasone] 10 mg PO [id number] #42 tab Comments: Your chest x-ray actually looks fairly good. Your lungs are clear now and your oxygen saturations maintaining in the low 90s on your normal supplemental oxygen. A prescription for a steroid taper has been electronically transmitted to the [facility] pharmacy in [place], your pharmacy of choice on record. Please continue to take your home nebulizer treatments and use the oxygen as well. Please follow-up with your primary doctor. Forms: PCP List Discharge Date/Time: 09/30/23 01:20
[2023-09-29] MEDS: DEXAMETHASONE 10 MG/ML VIAL IV STA (23:37)
[2023-09-29] MEDS: IPRATROPIUM/ALBUTEROL 3 ML NEB INH STA (23:43)
--- NOTE | 2023-09-30 00:13 | XRAY Report ---
PROCEDURE: Chest 1V INDICATIONS: sob/cough TECHNIQUE: One view of the chest was acquired. COMPARISON: Chest plain film 10/18/2021. FINDINGS: Surgical changes and devices: None. Lungs and pleura: No pleural effusions or pneumothorax. Lungs are free of pneumonia on the left. Th ere is chronic prominent elevation of the right hemidiaphragm, which disallows clear visualization of portions of the right lower lobe. Mediastinum: Mediastinal contours appear normal. Heart size is normal. Bones and chest wall: No suspicious bony lesions. Overlying soft tissues appear unremarkable. IMPRESSION: No acute cardiopulmonary process. Stable prominent elevation of the right hemidiaphragm which disallo ws clear visualization of the right lower lobe. No pneumonia found. Reviewed by: Giacomo King MD on 09/30/2023 12:11 AM PDT Approved by: Giacomo King MD on 09/30/2023 12:11 AM PDT Station ID: [id number]
[2023-09-30 02:10] VITALS: BP 131/57; O2SAT 94
== END 2023-09-30 01:20 | disposition home or self-care (01) ==
LOC: EDUNIT# → ED 23:11
DX: J44.1 Chronic obstructive pulmonary disease with (acute) exacerbation (principal); J45.31 Mild persistent asthma with (acute) exacerbation; Z99.81 Dependence on supplemental oxygen
CPT/HCPCS: 94640; 99284

== ENCOUNTER 2023-11-03 14:32 | Emergency (ER) | payer MEDICARE ==
--- NOTE | 2023-11-03 15:13 | ED Physician Documentation ---
PD HPI HEENT - Stated complaint Stated Complaint: NEEDS OXYGEN - Chief complaint Chief Complaint: Resp - History obtained from History obtained from: Patient, Family - Additional information Additional information: The patient comes to the emergency department chief complaint of "I need oxygen". She states that her oxygen concentrator knob broke at home and so she has not been able to be on her normal 4 L of oxygen. Her daughter states the patient seemed confused and so she brought her here. The patient has been restarted on oxygen after found to have an oxygen saturation of 88% on room air and is feeling much better. The wrap from the patient's oxygen company is coming to their house at [address] with a new knob and to troubleshoot the oxygen concentrator. They do have a portable oxygen delivery system that they can use between here and home. Patient states she has not been ill with anything recently. No other respiratory complaints until her concentrator stopped working. No focal neurologic deficits. She does have a fixed hallucination of hearing music in her ears but this is unchanged from usual. No other complaints at this time. 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, Other HEENT: Cataracts Derm: Other - Present Medications Home Medications: Ambulatory Orders Medication Instructions Recorded Confirmed Albuterol 2.5 mg INH Q4H PRN 11/02/16 09/29/23 Gabapentin 1,600 mg PO TID 11/02/16 09/29/23 Hydroxychloroquine [Plaquenil] 200 mg PO BID 11/02/16 09/29/23 Liothyronine [Cytomel] 5 mcg PO DAILY 11/02/16 09/29/23 Oxybutynin [Ditropan] 5 mg PO DAILY 11/02/16 09/29/23 modafiniL [Modafinil] 200 mg PO DAILY 11/02/16 09/29/23 predniSONE [Prednisone] 10 mg PO DAILY 11/02/16 09/29/23 Duloxetine HCl [Cymbalta] 120 mg PO DAILY 09/30/20 09/29/23 Fluticasone Propion/Salmeterol 1 spray IH BID 09/30/20 09/29/23 [Wixela 500-50 Inhub] Olopatadine HCl [Pataday] 2.5 ml OP DAILY PRN 09/30/20 09/29/23 Colestipol HCl [Colestid] 2 gm PO BID 10/06/20 09/29/23 Digestive 8/L.acidoph/Pectin 1 tab PO DAILY 10/06/20 09/29/23 [Digestive Enzymes Tablet] Fluticasone [Flonase] 2 sprays HARPREET DAILY 10/06/20 09/29/23 Levothyroxine Sodium 150 mcg PO DAILY 10/06/20 09/29/23 Naloxone HCl Nasal [Narcan Nasal] 1 spray HARPREET PRN PRN 10/06/20 09/29/23 Pantoprazole Sodium [Protonix] 20 mg PO BID 10/06/20 09/29/23 hydrOXYzine HCL [Hydroxyzine HCl] 25 mg PO QID PRN 10/06/20 09/29/23 Acetaminophen [Tylenol] 1,000 mg PO TID PRN tablet 10/08/20 09/29/23 ALPRAZolam [Alprazolam] 0.5 mg PO TID PRN 09/29/23 09/29/23 Ondansetron Odt [Zofran] 4 mg TL BID 09/29/23 09/29/23 Tezepelumab-Ekko [Tezspire] 210 mg SQ ONCE 09/29/23 09/29/23 buprenorphine HCL [Buprenorphine 2 mg SL TID 09/29/23 09/29/23 HCl] predniSONE [Deltasone] 10 mg PO [id number] #42 tab 09/30/23 - Allergies Allergies/Adverse Reactions: Allergies Allergy/AdvReac Type Severity Reaction Status Date / Time Penicillins Allergy Cramps Verified 11/03/23 14:45 - Social History Does the pt smoke?: No Smoking Status: Never smoker Does the pt drink ETOH?: No Does the pt have substance abuse?: No - Immunizations Immunizations are current?: Yes Immunizations: TDAP current <10years - POLST Patient has POLST: No PD ED PE NORMAL - Vitals Vital signs reviewed: Yes - General General: No acute distress, Well developed/nourished, Other (Alert and grossly oriented.) - HEENT HEENT: Atraumatic, EOMI, Moist mucous membranes - Neck Neck: Supple, no meningeal sign - Cardiac Cardiac: RRR, No murmur, Strong equal pulses - Respiratory Respiratory: No respiratory distress, Clear bilaterally - Abdomen Abdomen: Soft, Non tender, Non distended - Derm Derm: Normal color, Warm and dry, No rash - Extremities Extremities: No deformity, No edema - Neuro Neuro: Other (Alert, grossly intact.) - Psych Psych: Normal mood, Normal affect Results - Vitals Vitals: Vital Signs - 24 hr 11/03/23 11/03/23 14:45 15:05 Temperature 36.8 C Heart Rate 88 90 Respiratory 24 16 Rate Blood Pressure 155/80 H 147/85 H O2 Saturation 100 99 If not protocol 3 : Oxygen Flow, liters/minute Oxygen O2 Source [Without Activity] Nasal cannula O2 Source Nasal cannula Oxygen Flow Rate 3 PD Medical Decision Making - ED course Complexity details: reviewed results, re-evaluated patient, considered differential, d/w patient, d/w family ED course: Patient was placed on oxygen at the reported 4 L per nasal cannula that she is on at home, and her sats came up from 88 to 98% on room air. Patient did not have any acute complaints and the main issue was an equipment failure at home, send no tests were ordered. The patient was observed in the emergency department until 1529 at which time she was deemed stable for discharge on her small oxygen concentrator, since she will be able to get back on her regular oxygen at home. Departure - Departure Disposition: 01 Home, Self Care Clinical Impression: Dyspnea Qualifiers: Dyspnea type: unspecified Qualified Code(s): R06.00 - Dyspnea, unspecified Condition: Stable Instructions: ED Dyspnea Shortness of Breath Comments: You are placed on oxygen here in the emergency department and have done very well with this. Please use your small oxygen delivery system on the way home until you get back on your oxygen concentrator. Please follow-up with your primary doctor as needed.
[2023-11-03 16:06] VITALS: BP 133/81; O2SAT 100
== END 2023-11-03 15:56 | disposition home or self-care (01) ==
LOC: ED 14:32
DX: R06.00 Dyspnea, unspecified (principal); J44.9 Chronic obstructive pulmonary disease, unspecified; Z99.81 Dependence on supplemental oxygen
CPT/HCPCS: 99282; 99283

== ENCOUNTER 2023-12-30 11:16 | Observation (INO) | payer MEDICARE ==
[2023-12-30 12:25] LABS: ALBUMIN/GLOBULIN RATIO 1.4 (1.0-2.2); BILIRUBIN,TOTAL 1.6 mg/dL (0.2-1.0); CALCIUM 9.5 mg/dL (8.5-10.3); CREATININE 1.1 mg/dL (0.6-1.3); POTASSIUM 3.6 mmol/L (3.5-4.5); TOTAL PROTEIN 6.9 g/dL (6.4-8.9)
--- NOTE | 2023-12-30 12:27 | ED Physician Documentation ---
History of Present Illness - Stated complaint Stated Complaint: VIRTIGO,CONFUSION,MEMORY LOSS - Chief complaint Chief Complaint: Neuro - Additonal information Additional information: Patient is a 73-year-old female with past medical history of COPD on 3 L nasal cannula at home, history of vertigo, history of pancreatic cancer in remission presents to the emergency department with reported repeat syncopal episodes. Patient was brought in by granddaughter after she witnessed multiple syncopal episodes they are reporting over 50 of these episodes. Patient notes presyncopal symptoms prior to these happening. She notes she has never had these before. She has been taking her home medications and has not skipped any doses of medications. Patient is not currently on chemo treatment. She notes some mild headaches but no other symptoms. She denies any fevers no neck pain no photophobia no numbness or tingling in upper or lower extremities. She denies any chest pain or worsening shortness of breath. She is on 3 L nasal cannula for her history of COPD and history of right lobectomy. PD PAST MEDICAL HISTORY - Past Medical History Cardiovascular: None Respiratory: Asthma, COPD, Other Neuro: Headaches Endocrine/Autoimmune: HyPOthyroidism GI: GERD, Crohn's disease : Incontinence, Frequency HEENT: Other Psych: Depression, Anxiety Musculoskeletal: Fibromyalgia, Rheumatoid arthritis Derm: None - Past Surgical History Past Surgical History: Yes General: Cholecystectomy, Bowel surgery, Other /STEEL TIER: section, Other HEENT: Cataracts Derm: Other - Present Medications Home Medications: Ambulatory Orders Medication Instructions Recorded Confirmed Albuterol 2.5 mg INH Q4H PRN 11/02/16 12/30/23 Gabapentin 1,600 mg PO TID 11/02/16 12/30/23 Hydroxychloroquine [Plaquenil] 200 mg PO BID 11/02/16 12/30/23 Oxybutynin [Ditropan] 5 mg PO DAILY 11/02/16 12/30/23 predniSONE [Prednisone] 10 mg PO DAILY 11/02/16 12/30/23 Duloxetine HCl [Cymbalta] 120 mg PO DAILY 09/30/20 12/30/23 Fluticasone Propion/Salmeterol 1 spray IH BID 09/30/20 12/30/23 [Wixela 500-50 Inhub] Olopatadine HCl [Pataday] 2.5 ml OP DAILY PRN 09/30/20 12/30/23 Colestipol HCl [Colestid] 2 gm PO BID 10/06/20 12/30/23 Fluticasone [Flonase] 2 sprays HARPREET DAILY 10/06/20 12/30/23 Levothyroxine Sodium 150 mcg PO DAILY 10/06/20 12/30/23 Pantoprazole Sodium [Protonix] 20 mg PO BID 10/06/20 12/30/23 hydrOXYzine HCL [Hydroxyzine HCl] 25 mg PO QID PRN 10/06/20 12/30/23 Acetaminophen [Tylenol] 1,000 mg PO TID PRN tablet 10/08/20 12/30/23 ALPRAZolam [Alprazolam] 0.5 mg PO TID PRN 09/29/23 12/30/23 Ondansetron Odt [Zofran] 4 mg TL BID 09/29/23 12/30/23 Tezepelumab-Ekko [Tezspire] 210 mg SQ ONCE 09/29/23 12/30/23 buprenorphine HCL [Buprenorphine 2 mg SL Q6H 09/29/23 12/30/23 HCl] Hydrocodone/Acetaminophen 1 tab PO 5XD PRN 12/30/23 12/30/23 [Hydrocodone-Acetamin 10-325 mg] Levothyroxine [Synthroid] 150 mcg PO DAILY 12/30/23 12/30/23 Tezepelumab-Ekko [Tezspire] 1.19 ml SUBQ Q28D 12/30/23 12/30/23 - Allergies Allergies/Adverse Reactions: Allergies Allergy/AdvReac Type Severity Reaction Status Date / Time Penicillins Allergy Cramps Verified 12/30/23 11:33 - Social History Does the pt smoke?: No Smoking Status: Never smoker Does the pt drink ETOH?: No Does the pt have substance abuse?: No - Immunizations Immunizations are current?: Yes Immunizations: TDAP current <10years - POLST Patient has POLST: No PD ED PE NORMAL - Vitals Vital signs reviewed: Yes - General General: Alert and oriented X 3 - HEENT HEENT: Atraumatic, PERRL - Neck Neck: Supple, no meningeal sign - Cardiac Cardiac: RRR, No murmur, No gallop, No rub - Respiratory Respiratory: No respiratory distress, Clear bilaterally - Abdomen Abdomen: Normal bowel sounds, Non tender, Non distended, No organomegaly - Back Back: No CVA TTP - Derm Derm: Normal color - Extremities Extremities: No deformity, Normal ROM s pain, No edema - Neuro Neuro: Alert and oriented X 3, Other (No signs of focal neurodeficits however on ambulation patient has wide-based ataxia and able to stand up without falling over.Positive Romberg sign.) Eye Opening: Spontaneous Motor: Obeys Commands Verbal: Oriented GCS Score: 15 - Psych Psych: Normal mood, Normal affect Results - Vitals Vitals: Vital Signs - 24 hr 12/30/23 12/30/23 12/30/23 11:26 12:40 13:53 Temperature 37.2 C Heart Rate 55 L 104 H Heart Rate [ 99 Sitting] Heart Rate [ 101 H Standing] Heart Rate [ 95 Supine] Respiratory 20 22 Rate Blood Pressure 135/60 H 115/64 Blood Pressure 107/65 [Sitting] Blood Pressure 102/49 L [Standing] Blood Pressure 116/60 [Supine] O2 Saturation 95 98 If not protocol : Oxygen Flow, liters/minute 12/30/23 12/30/23 14:39 15:00 Temperature 36.9 C Heart Rate 72 96 Heart Rate [ Sitting] Heart Rate [ Standing] Heart Rate [ Supine] Respiratory 16 20 Rate Blood Pressure 113/71 128/60 Blood Pressure [Sitting] Blood Pressure [Standing] Blood Pressure [Supine] O2 Saturation 95 96 If not protocol 4 4 : Oxygen Flow, liters/minute Oxygen O2 Source [Without Activity] Nasal cannula O2 Source Nasal cannula Oxygen Flow Rate 4 - EKG (time done) 1238 EKG releavant findings:: EKG personally interpreted by author of this note. Relevant findings are: No acute EKG changes from 06/18/23 Rate: Rate (enter#), Madi, Tachy, Other Patterson: Normal Intervals: Normal MN QRS: Normal Ischemia: Normal ST segments Compare to prior EKG: Unchanged from prior EKG Computer interpretation: Agree with computer - Labs Labs: Laboratory Tests 12/30/23 12/30/23 12/30/23 12:00 12:00 12:37 WBC 9.9 RBC 3.64 L Hgb 11.2 L Hct 36.8 L MCV 101.1 H MCH 30.8 MCHC 30.4 L RDW 13.2 Plt Count 409 MPV 9.7 Neut # (Auto) 5.0 Lymph # (Auto) 3.8 H Estill # (Auto) 0.9 Eos # (Auto) 0.1 Baso # (Auto) 0.1 Absolute Nucleated RBC 0.00 Nucleated RBC % 0.0 Sodium 136 Potassium 3.6 Chloride 95 L Carbon Dioxide 37 H Anion Gap 4.0 L BUN 14 Creatinine 1.1 Estimated GFR (MDRD) 49 L Glucose 92 POC Whole Bld Glucose 75 Calcium 9.5 Total Bilirubin 1.6 H AST 34 ALT 22 Alkaline Phosphatase 56 Troponin I High Sens 5.8 Total Protein 6.9 Albumin 4.0 Globulin 2.9 Albumin/Globulin Ratio 1.4 Lipase 10 L - Rads (name of study) CT scan of Head Relevant Findings:: EMP independent interpretation of test Chest X-ray Relevant Findings:: EMP independent interpretation of test PD Medical Decision Making - ED course Complexity details: reviewed old records, reviewed results ED course: Patient is a 73-year-old female presenting to the emergency department with dizziness vertigo symptoms have been going on since yesterday afternoon. Per patient's granddaughter she has had about 50 episodes of fainting. Patient's symptoms only last for a few seconds and have some presyncopal symptoms associated. Vitals stable on arrival orthostatics are negative here in the emergency department. No focal neurodeficits however on physical exam with ambulation patient has significant ataxia. Labs here in the emergency department showed no significant leukocytosis. Hemoglobin stable no signs of anemia. EKG shows sinus tachycardia but no acute changes from previous EKG in 06/18/2023.Troponin within normal range no significant JERMAINE or electrolyte abnormality. CT scan of head shows no acute intracranial findings. Concern for possible ischemia versusMass not seen on CT scan. Discussed with hospitalist patient will be admitted for ataxia workup and vertigo workup may require further imaging in the hospital. Patient agreeable with admission at this time. Departure - Departure Disposition: 01 Home, Self Care Clinical Impression: Ataxia, Vasovagal near-syncope, Syncope Condition: Fair
[2023-12-30 12:31] LABS: TROPONIN I HIGH SENSITIVITY 5.8 ng/L (2.3-14.8)
--- NOTE | 2023-12-30 14:03 | CT Report ---
PROCEDURE: Head WO INDICATIONS: syncope, dizziness, unstable, hx of cancer TECHNIQUE: Noncontrast 4.5 mm thick angled axial sections acquired from the foramen magnum to the vertex. For r adiation dose reduction, the following was used: automated exposure control, adjustment of mA and/or kV according to patient size. COMPARISON: CT head dated 10/05/2020. FINDINGS: Image quality: Excellent. CSF spaces: Basal cisterns are patent. No extra-axial fluid collections. Incidental arachnoid cyst , middle cranial fossa, anterior to the right temporal tip. Ventricles are normal in size and shape. Brain: No midline shift. No intracranial masses or hemorrhage. Nelson-white matter interface is norm al. Skull and face: Calvarium and visualized facial bones are intact, without suspicious lesions. Sinuses: Visualized sinuses and mastoids are clear. IMPRESSION: No acute intracranial pathology. Reviewed by: Milad Olmos MD on 12/30/2023 2:02 PM PDT Approved by: Milad Olmos MD on 12/30/2023 2:02 PM PDT Station ID: [id number]
[2023-12-30 14:17] LABS: BASOPHILS # (AUTO) 0.1 10^3/uL (0.0-0.1); BASOPHILS % (AUTO) 0.8 %; EOSINOPHILS # (AUTO) 0.1 10^3/uL (0.0-0.7); EOSINOPHILS % (AUTO) 1.3 %; HCT - HEMATOCRIT 36.8 % (37.0-47.0); HGB - HEMOGLOBIN 11.2 g/dL (12.0-16.0); LYMPHOCYTES # (AUTO) 3.8 10^3/uL (1.5-3.5); LYMPHOCYTES % (AUTO) 38.3 %; MEAN CORPUSCULAR HEMOGLOBIN 30.8 pg (27.0-31.0); MEAN CORPUSCULAR HGB CONC 30.4 g/dL (32.0-36.0); MEAN CORPUSCULAR VOLUME 101.1 fL (81.0-99.0); MEAN PLATELET VOLUME 9.7 fL (7.9-10.8); MONOCYTES # (AUTO) 0.9 10^3/uL (0.0-1.0); MONOCYTES % (AUTO) 9.3 %; PLT - PLATELET COUNT 409 10^3/uL (130-450); RED BLOOD COUNT 3.64 10^6/uL (4.20-5.40); RED CELL DISTRIBUTION WIDTH 13.2 % (12.0-15.0); WHITE BLOOD COUNT 9.9 x10^3/uL (4.8-10.8)
[2023-12-30] MEDS: PANTOPRAZOLE 40 MG VIAL IVP STA (14:53)
[2023-12-30] MEDS ORDERED: ACETAMINOPHEN 325 MG TABLET PO PRN (16:47)
[2023-12-30] MEDS ORDERED: SODIUM CHLORIDE FLUSH 0.9% 10 ML SYRINGE IVP PRN (16:47)
[2023-12-30] MEDS ORDERED: OLOPATADINE HCL OP PRN (16:51)
--- NOTE | 2023-12-30 17:38 | PHARMACY PROGRESS NOTE ---
- Best Possible Medication History Admit Date and Time: 12/30/23 7210 Processed by: Pharmacy Medications reviewed in ED?: Yes Medication History completed: Yes Patient Interview: Completed Secondary Source(s): Written medication list, Pharmacy records, Insurance records As the person ultimately responsible for medication therapy, providers are able to order a medication from an existing home medication list in [facility] via the "Reconcile Routine" prior to Confirmation of that medication by biomedical equipment support specialist. Such practice is discouraged except when the physician, in their clinical judgment, deems that a medical need exists for a medication without regard to previous use.
--- NOTE | 2023-12-30 17:40 | HISTORY & PHYSICAL EXAMINATION ---
Chief Complaint - Chief Complaint Chief Complaint: Syncope History of Present Illness - Admitted From Admitted From:: ED - History Obtained From Records Reviewed: ED, oncology notes, previous ED and hospital admissions History obtained from: Patient and daughter Exam Limitations: Patient has active auditory, visula or sensory hallucinastions - History of Present Illness HPI Comment/Other: Ms. Porras is a 73-year-old female with past medical history of COPD on 3 L nasal cannula at home. She has a history of vertigo, history of pancreatic cancer in remission, narcolopsy and crohn's disease and presents to the emergency department with reported repeat syncopal episodes. Patient was brought in by her daughter after she witnessed multiple syncopal episodes, reporting "over 50" of these episodes. Patient notes presyncopal symptoms prior to these happening. She notes she has never had these before. She has been bill ing her home medications and has not skipped any doses of medications. Patient is not currently on chemo treatment. She notes some mild headaches but no other symptoms. She denies any fevers no neck pain no photophobia no numbness or tingling in upper or lower extremities. She denies any chest pain or worsening shortness of breath. She is on 3 L nasal cannula for her history of COPD and history of right lobectomy. In the ED a head CT was done and was unremarkable. Her 12-lead showed sinus tachycardia but was otherwise normal. Her HR in her initial vitals was 55 but she has not been bradycardic since with HR in the low 100's during admission intake and BP stable. She developed "10/10" chest pain that resolved with protonix. She has mild sob at time of admission, denies chest pain, headache, changes in vision, abdominal pain, changes in bowel patterns, or fever/chills. History - Past Medical History Cardiovascular: reports: None Respiratory: reports: Asthma, COPD, Other (ritght partial loebctomy) Neuro: reports: Headaches Endocrine/Autoimmune: reports: HyPOthyroidism GI: reports: GERD, Crohn's disease, Other (Pancreatic neuroendocrine tumor stage 1B) : reports: Incontinence, Frequency HEENT: reports: Other (Vertigo 2nd fluid on the right ear) Psych: reports: Depression, Anxiety, Bipolar disorder, Other (narcolepsy) Musculoskeletal: reports: Fibromyalgia, Rheumatoid arthritis Derm: reports: None MRSA Hx?: No - Past Surgical History General: reports: Cholecystectomy, Bowel surgery (right partial colectomy), Other (partial pacreatectomy) /MEDICAL RECORDS AUDITOR: reports: section HEENT: reports: Cataracts, Myringotomy (tubes) (right ear) Derm: reports: Other - Family & Social History Family History: Mother: , Alcoholism, COPD/Emphysema, Father: , CAD, Diabetes, Type 2, Hypertension Family History Comment/Other: She reports her father had a history of colon cancer and her mother had a history of emphysema. Daughter has schizophrenia and son has bi-polar. Living arrangement: At home Living Situation: With family (daughter and youngest son) Social History Notes: She lives at home with her son, Girish. She smoked for a year when she was 14 years old. Does not currently drink or smoke. - Substance History Use: Uses substance without health or social issues: Tobacco, Alcohol, Opioid Abuse: Recurrent use of substance despite neg consequences: Alcohol (Previously, sober x13 years), Opioid (Previously prescription abuse, now on buprenophine) Tobacco Details: Cigarettes (as a teenager, not currently) - POLST Patient has POLST: No POLST Status: Full Code (DaughterLatesha is verbal POA, no formal paperwork ([phone])) Meds/Allgy - Home Medications Home Medications: Ambulatory Orders Medication Instructions Recorded Confirmed Albuterol 2.5 mg INH Q4H PRN 11/02/16 12/30/23 Gabapentin 1,600 mg PO TID 11/02/16 12/30/23 Hydroxychloroquine [Plaquenil] 200 mg PO BID 11/02/16 12/30/23 Oxybutynin [Ditropan] 5 mg PO DAILY 11/02/16 12/30/23 predniSONE [Prednisone] 10 mg PO DAILY 11/02/16 12/30/23 Duloxetine HCl [Cymbalta] 120 mg PO DAILY 09/30/20 12/30/23 Fluticasone Propion/Salmeterol 1 spray IH BID 09/30/20 12/30/23 [Wixela 500-50 Inhub] Olopatadine HCl [Pataday] 2.5 ml OP DAILY PRN 09/30/20 12/30/23 Colestipol HCl [Colestid] 2 gm PO BID 10/06/20 12/30/23 Fluticasone [Flonase] 2 sprays HARPREET DAILY 10/06/20 12/30/23 Levothyroxine Sodium 150 mcg PO DAILY 10/06/20 12/30/23 Pantoprazole Sodium [Protonix] 20 mg PO BID 10/06/20 12/30/23 hydrOXYzine HCL [Hydroxyzine HCl] 25 mg PO QID PRN 10/06/20 12/30/23 Acetaminophen [Tylenol] 1,000 mg PO TID PRN tablet 10/08/20 12/30/23 ALPRAZolam [Alprazolam] 0.5 mg PO TID PRN 09/29/23 12/30/23 Ondansetron Odt [Zofran] 4 mg TL BID 09/29/23 12/30/23 Tezepelumab-Ekko [Tezspire] 210 mg SQ ONCE 09/29/23 12/30/23 buprenorphine HCL [Buprenorphine 2 mg SL Q6H 09/29/23 12/30/23 HCl] Hydrocodone/Acetaminophen 1 tab PO 5XD PRN 12/30/23 12/30/23 [Hydrocodone-Acetamin 10-325 mg] Levothyroxine [Synthroid] 150 mcg PO DAILY 12/30/23 12/30/23 Tezepelumab-Ekko [Tezspire] 1.19 ml SUBQ Q28D 12/30/23 12/30/23 - Allergies Allergies/Adverse Reactions: Allergies Allergy/AdvReac Type Severity Reaction Status Date / Time Penicillins Allergy Cramps Verified 12/30/23 11:33 Review of Systems - Constitutional Constitutional: denies: Fever, Chills, Weight loss - Eyes Eyes: denies: Pain, Blurred vision, Dipolpia - Ears, Nose & Throat Ears, Nose & Throat: reports: Vertigo. denies: Ear pain, Nasal discharge, Sore throat - Cardiovascular Cariovascular: reports: Syncope. denies: Palpitations, Chest pain - Respiratory Respiratory: reports: SOB at rest (On home O2 @ 3 lpm). denies: Cough, W heezing, Hemoptysis - Gastrointestinal Gastrointestinal: reports: Diarrhea (Chronic), Reflux/heartburn. denies: Abdominal pain, Constipation, Black stools, Nausea, Vomiting - Genitourinary Genitourinary: reports: Frequency, Incontinence. denies: Dysuria, Hematuria - Musculoskeletal Musculoskeletal: reports: Joint pain, Joint swelling. denies: Muscle pain, Back pain - Integumentary Integumentary: denies: Rash, Pruritis, Lesions - Neurological Neurological: reports: Headache, Dizziness, Memory problems, Other (Restlessness) - Psychiatric Psychiatric: reports: Depression, Anxiety, Hallucinations - Endocrine Endocrine: reports: Polyuria, Polydypsia. denies: Polyphagia, Intolerance to cold, Intolerance to heat - Hematologic/Lymphatic Hematologic/Lymphatic: reports: Anemia. denies: Bruising Prior Level of Functionality: Unsteady walking, often requires assistance from children, frequent falls. Dresses self, can make simple food but children do most of the cooking. Does not drive or use a walker. Exam - Vital Signs Reviewed Vital Signs: Yes Vital Signs: Vital Signs x48h Temp Pulse Pulse Pulse Pulse Resp BP 12/30/23 15:00 96 20 128/60 12/30/23 14:39 36.9 C 72 16 113/71 12/30/23 13:53 99 101 H 95 12/30/23 12:40 104 H 22 115/64 12/30/23 11:26 37.2 C 55 L 20 135/60 H BP BP BP Pulse Ox O2 Flow Rate 12/30/23 15:00 96 4 12/30/23 14:39 95 4 12/30/23 13:53 107/65 102/49 L 116/60 12/30/23 12:40 98 12/30/23 11:26 95 - Physical Exam General Appearance: positive: No acute distress, Alert, Other (Hyperkinetic movements of extremities, body, and face) Eyes Bilateral: positive: PERRL, No lid inflammation, Conjunctivae nml, No scleral icterus. negative: EOMI (Able to follow finger but occasional jerking movements, horizontal nystagmus to right) ENT: positive: Other (Myringotomy right ear, TM partially obstructed by cerumen, no erythema, unable to visualize completely. Left TM normal.) Neck: positive: Nml inspection, No JVD, Trachea midline Respiratory: positive: Chest non-tender, No respiratory distress. negative: Breath sounds nml (Diminished right base), Wheezes, Rales, Rhonchi Cardiovascular: positive: Regular rate & rhythm, No murmur, No gallop, Tach ycardia Peripheral Pulses: positive: 2+ Abdomen: positive: Non-tender, No organomegaly, Nml bowel sounds, No distention, Other (Multiple scars consistent with surgical hx). negative: Guarding, Rebound Back: positive: Nml inspection. negative: CVA tenderness (R), CVA tenderness (L) Skin: positive: Color nml, No rash, Warm, Dry Extremities: positive: Full ROM, Nml appearance, No pedal edema, Other (Several contusion left knee) Neurologic/Psychiatric: positive: Oriented x3, CN's nml (2-12), Motor nml, Sensation nml, Other (Hyperkinetic movements, continuous mouth smacking). negative: Mood/affect nml (Labile mood, becomes easily distressed and distracted) Sepsis Event Note (H) - Evaluation Current Stage of Sepsis: Ruled out Conclusion/Plan - Problem List (1) Syncope Conclusion/Plan: She presents with reported "syncope" today over "50" times today per her daughter. Upon further discussion with her and her daughter, it is not clear that these are syncople episodes. She is able to described the events and does not endorse any LOC. Her daughter states she becomes very unsteady when sitting up and falls over but does not appear aware of it. Ms. Porras endorses vertigo, states she has a hx of vertigo due to fluid in her right ear with a myringotomy tube. Her daughter does not describe any muscle shaking or rigidity but does state she just stares ahead and makes no effort to catch herself. Per both her and her daughter, her unsteadiness has been persistent over years but may have worsened today. She had a fall down stairs with multiple fx leading to a right lung partial lobectomy 3 years ago. She often has help walking due to her unsteadiness, does not walk stairs alone and does not drive. She does not report chest pain, palpitations, increased shortness of breath, clamminess, or nausea with these "syncople" events. Differentials include absence sz, vertigo, vestibular neuritis, cerebellar ataxia, neoplastic disease, medication side effects, tachy/paramjit syndrome, POTS, arrhythmia, and orthostatic hypotension. Head CT in the ED was negative for acute pathology. She has horizontal nystagmus when looking to the right and there are jerky eye movements when testing EOM. She does not endorse any changes in vision. She has a myringotomy tube in her right ear and the TM is partially obstructed with cerumen, the visible portion is normal not inflamed. She has no focal motor or sensory deficits, negative arm drift, (=) push pull, (+) irrigationist, (-) facial droop, (-) slurred speech. It is not clear that this is due to an acute change at this time. It may represent worsening or exacerbation of a chronic condition. I will get an MRI of the head and ECHO to narrow down the differentials. I will place her on telemetry to look for possible arrhythmia and obtain orthostatic vitals. (2) Hallucinations Conclusion/Plan: Endorses auditory, visual and sensory hallucinations, increased over the past few days but have been present on and off for some time, exact timeframe unclear. She reports hearing music, seeing workmen who aren't there, and a little creature who is "running around the bed" and "poking" her. She has labile mood during assessment and is easily distressed. She has not been evaluated for these symptoms and is not on any antipsychotics. Her hyperkinetic movements present similar to tardive dyskenesia. I will have pharmacy look into her prescriptions to see if she is on an antipsychotics that were not included in her med list. Her daughter has schizophrenia and has been encouraging her mother to get evaluated by a psychiatrist. The cause of the hallucinations is not clear, consider undiagnosed schizophrenia, metabolic encephalopathy, medication effects, and neoplastic process. (3) Chronic respiratory failure Conclusion/Plan: She has chronic respiratory failure due to COPD, reportedly on 3-6 lpm at home, disagreement between daughter and Ms. Porras on what her O2 requirements are. She also had a right partial lobectomy. Her CO2 is elevated at 37 and she is likely chronically hypercapneic. She is currently on 2 lpm with sats in the 95- 97% during assessment. (4) History of pancreatic cancer Conclusion/Plan: Hx of pancreatic neuroendocrine tumor stage 1B that was removed with a partial pancreatectomy in 12/27. She has been in remission since then and has yearly surveillance MRIs, last done on 12/02/23 with no recurrence. (5) History of COPD Conclusion/Plan: Hx of COPD and on prednisone, tezspire, flonase, and fluticasone/salmeterol at home with home O2. She is reportedly on O2 @3-6 lpm at home, daughter and patient unclear on the rate. She is currently satting 95-97% on 2 liters without respiratory distress. No recent increase in cough or SOB reported. (6) Opiate dependence Conclusion/Plan: Hx of prescription opioid dependence, transitioned to buprenorphine. She denies using heroine or other illicit narcotics. Duration of dependence unclear, her current buprenorphine dose is 2 mg SL q 6 hrs. (7) GERD (gastroesophageal reflux disease) Conclusion/Plan: Hx of GERD and on pantoprazole at home. She developed 10/10 shest pain in the ED that resolved after she was given protonix. She reports she is on a pureed diet due to having a "pouch" in her esophagus. (8) Chronic pain Conclusion/Plan: She is on buprenorphine 2 mg SL q 6 hrs and 1,600 mg of gabapentin TID at home. This may be contributing to her symptoms. I will continue buprenorphine and dec rease gabapentin to 1,200 mg TID during her admission. (9) Rheumatoid arthritis Conclusion/Plan: Hx of RA, on hydrozychloroquine 200 mg PO BID. She is not specifically complaining of any joint pain during assessment. I will continue the hydroqychloroquine during admission. (10) Total bilirubin, elevated Conclusion/Plan: Elevated T. bili at 1.6, significance undetermined. I will continue to monitor during her admission. (11) Elevated serum creatinine Conclusion/Plan: Elevated serum creatinine at 1.1, last creatinine on 11/25/23 was 0.7. Her GFR has also decreased from 82 on 11/24 to 49 today. She reports increased thirst and drinking lots of water with urinary frequency and incontinence, no dysuria, and no CVA tenderness. UA is ordered. (12) Hypothyroidism Conclusion/Plan: Hx of hypothryoid an is on levothyroxine. I will check her TSH and continue her levothryoxine. (13) Anxiety Conclusion/Plan: She has a hx of anxiety and is on cymbalta. This will be continued during her admission. (14) Iron deficiency anemia Conclusion/Plan: Hx of ABHINAV for which she receives iron infusions, due to decreased absorption from partial colectomy, crohn's, and probable malnutrition due to difficulty with GERD and having a pureed diet. Hemoglobin is currently 11.2 and does not require treatment. - Lab Results Fish Bones: 12/30/23 12:00 12/30/23 12:00 - Diagnostic Imaging Results Diagnostic Imaging Results: positive: Final report reviewed Diagnostic Imaging Results Comments: CT head: no acute findings Core Measures - Anticipated LOS I expect patient to be DC'd or transferred within 96 hours.: Yes - DVT/VTE - Prophylaxis VTE/DVT Device ordered at admit?: No VTE/DVT Prophylaxis med ordered at admit?: Yes
[2023-12-30] MEDS ORDERED: GADOTERATE MEGLUMINE 7.5 MMOL/15 ML VIAL ONE (17:51)
[2023-12-30] MEDS: GADOTERATE MEGLUMINE 10 MMOL/20 ML VIAL IVP ONE (18:37)
[2023-12-30] MEDS: FORMOTEROL FUMARATE NEB 20 MCG/2 ML INH SCH (19:00)
[2023-12-30] MEDS: BUDESONIDE 0.5 MG/2 ML NEB INH SCH (19:00)
--- NOTE | 2023-12-30 19:06 | MRI Report ---
PROCEDURE: Brain W/WO INDICATIONS: multiple syncopal episodes; cancer neuroendocrine CONTRAST: clariscan 12.2ml TECHNIQUE: Noncontrast axial T1 spin echo, axial T2 fast spin echo, sagittal and axial FLAIR, coronal T2 fast sp in echo, axial gradient echo, axial diffusion and ADC through the brain. After the administration of contrast, axial and coronal T1 spin echo with fat saturation through the brain. COMPARISON: CT head 12/29/2023, 06/18/2023 FINDINGS: Image quality: Prominent motion is present limiting areas of fine detail evaluation. CSF spaces: Basal cisterns are patent. No extra-axial fluid collections. Ventricles are normal in size and shape. Brain: No midline shift. No intracranial bleeds or masses. No abnormal intracranial enhancement. There is cerebral volume loss for age. There is periventricular white matter chronic small vessel is chemic change. The brainstem appears normal. Diffusion-weighted images demonstrate no acute ischemi c insults. No chronic ischemic insults. Normal intravascular flow voids are present. Right anterio r temporal lobe arachnoid cyst. Skull and face: Calvarial marrow is normal in signal. Orbits appear normal. Sinuses: Mild fluid is present within the right mastoid air cells. Sinuses are clear. IMPRESSION: Limited exam secondary to significant motion. No acute gross intracranial process. Atrophy and chronic microvascular ischemic changes. Reviewed by: Nesha Sneed MD on 12/30/2023 7:05 PM PDT Approved by: Nesha Sneed MD on 12/30/2023 7:05 PM PDT Station ID: [id number]
[2023-12-30 19:24] LABS: BILIRUBIN,URINE NEGATIVE (NEGATIVE); GLUCOSE, URINE (UA) NEGATIVE (NEGATIVE); KETONES,URINE (UA) NEGATIVE (NEGATIVE); LEUKOCYTE ESTERASE, URINE TRACE (NEGATIVE); NITRITE,URINE NEGATIVE (NEGATIVE); OCCULT BLOOD,URINE TRACE-INTA (NEGATIVE); PH,URINE 5.5 PH (5.0-7.5); PROTEIN,URINE NEGATIVE (NEGATIVE); UROBILINOGEN,URINE 0.2 (NORMAL) E.U./dL (NORMAL)
[2023-12-30 19:25] LABS: CLARITY,URINE HAZY (CLEAR)
[2023-12-30 19:33] LABS: BACTERIA,URINE Few /HPF (None Seen); RBC,URINE 0-5 /HPF (0-5); SQUAMOUS EPITHELIAL CELL,UR FEW Squamous (<= Few)
[2023-12-30] MEDS: BUPRENORPHINE/NALOXONE 8-2 MG TAB SL SCH (21:13)
[2023-12-30] MEDS: PANTOPRAZOLE 40 MG TABLET PO SCH (21:13)
[2023-12-30] MEDS: HYDROXYCHLOROQUINE 200 MG TABLET PO SCH (21:13)
[2023-12-30] MEDS: COLESTIPOL 1 GM PO SCH (21:13)
[2023-12-30] MEDS: GABAPENTIN 400 MG CAPSULE PO SCH (21:13)
[2023-12-30] MEDS: SODIUM CHLORIDE FLUSH 0.9% 10 ML SYRINGE IVP SCH (21:14)
[2023-12-30] MEDS: ALPRAZolam 0.25 MG TABLET PO PRN (21:17)
[2023-12-30] MEDS: SALIVA STIMULANT SPRAY 44.3 ML BOTTLE PO PRN (21:18)
[2023-12-31] MEDS: ALBUTEROL NEB 2.5 MG/3 ML INH PRN (06:15)
[2023-12-31] MEDS: LEVOTHYROXINE 75 MCG TABLET PO SCH (06:45)
[2023-12-31 08:12] VITALS: O2SAT 96
[2023-12-31] MEDS: FLUTICASONE NASAL SPRAY NAS SCH (08:30)
[2023-12-31] MEDS: SOLIFENACIN SUCCINATE 5 MG TABLET PO SCH (08:34)
[2023-12-31] MEDS: ENOXAPARIN 40 MG/0.4 ML SYRINGE SUBQ SCH (08:34)
[2023-12-31] MEDS: DULoxetine 60 MG CAPSULE PO SCH (08:34)
[2023-12-31] MEDS: predniSONE 5 MG TABLET PO SCH (08:34)
[2023-12-31] MEDS ORDERED: LEVOTHYROXINE 75 MCG TABLET PO SCH (09:00)
[2023-12-31] MEDS ORDERED: MODAFINIL 200 MG PO SCH (09:00)
[2023-12-31] MEDS ORDERED: LEVOTHYROXINE SODIUM 150 MCG PO SCH (09:00)
[2023-12-31 09:11] LABS: BASOPHILS # (AUTO) 0.1 10^3/uL (0.0-0.1); EOSINOPHILS # (AUTO) 0.6 10^3/uL (0.0-0.7); EOSINOPHILS % (AUTO) 5.6 %; HCT - HEMATOCRIT 35.6 % (37.0-47.0); HGB - HEMOGLOBIN 10.9 g/dL (12.0-16.0); LYMPHOCYTES # (AUTO) 3.9 10^3/uL (1.5-3.5); LYMPHOCYTES % (AUTO) 35.7 %; MEAN CORPUSCULAR HEMOGLOBIN 31.5 pg (27.0-31.0); MEAN CORPUSCULAR HGB CONC 30.6 g/dL (32.0-36.0); MEAN CORPUSCULAR VOLUME 102.9 fL (81.0-99.0); MEAN PLATELET VOLUME 10.6 fL (7.9-10.8); MONOCYTES # (AUTO) 1.1 10^3/uL (0.0-1.0); MONOCYTES % (AUTO) 10.4 %; NEUTROPHILS # (AUTO) 5.1 10^3/uL (1.5-6.6); NEUTROPHILS % (AUTO) 46.9 %; PLT - PLATELET COUNT 415 10^3/uL (130-450); RED BLOOD COUNT 3.46 10^6/uL (4.20-5.40); RED CELL DISTRIBUTION WIDTH 13.4 % (12.0-15.0); WHITE BLOOD COUNT 10.8 x10^3/uL (4.8-10.8)
[2023-12-31 09:17] LABS: ALBUMIN 3.4 g/dL (3.2-5.5); CALCIUM 8.9 mg/dL (8.5-10.3); CREATININE 0.6 mg/dL (0.6-1.3); MAGNESIUM 1.8 mg/dL (1.7-2.3); PHOSPHORUS 3.6 mg/dL (2.5-5.0); POTASSIUM 3.6 mmol/L (3.5-4.5)
--- NOTE | 2023-12-31 11:59 | Discharge Plan ---
Discharge Plan Problem Reviewed?: Yes Disposition: 06 Home Health Service Condition: Fair Diet: Regular (Pureed diet or soft diet) Activity Restrictions: Ambulate with a walker Plan of Treatment: Would recommend follow up with psychiatry and neurology. Please try to see your primary in the next week. Assessment: 1. Presyncope; ataxia The patient presented with reports of syncope. Her daughter had reported that she had had over 50 syncopal episodes the day she presented to the emergency room. However after further discussions with the daughter it does not sound like the patient loses consciousness. It is more that she when she is trying to ambulate she will lean to the left and sometimes fall. No seizure activity has been seen during this hospitalization. The patient's daughter states that sometimes she will zone out for a few seconds when this happens. The patient follows closely with her outpatient provider. She has already been referred to neurology. She has not yet had her first appointment. Would recommend neurology follow up at discharge. She has been seen by physical therapy. We are writing for a rolling walker at discharge. She should ambulate with a walke r at this point. 2. Hallucinations The patient is having auditory and visual hallucinations. However she has been having these for several years but they have gotten much worse here recently. MRI of the brain was unrevealing. Would recommend psychiatry referral as an outpatient. Again these hallucinations are nothing new. 3. Narcolepsy Continue home regimen 4. Chronic respiratory failure due to COPD The patient is not decompensated. She is on her baseline oxygen requirements at the time of admission. She has some chronic compensated hypercapnia. She does follow with pulmonology 5. 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 She follows with oncology as an outpatient 6. Opioid dependence The patient has a history of prescription opioid abuse. She is maintained on buprenorphine. She should continue this as an outpatient 7. History of alcohol abuse No evidence of alcohol withdrawal. She said she quit drinking many years ago. However she said she was a heavy drinker for about 40 years. 8. GERD Continue home dose of Protonix 9. Chronic pain She is on an extremely high dose of gabapentin at home. Would recommend discussing cutting this back with her primary care provider. She will continue her buprenorphine. 10. Rheumatoid arthritis She is steroid-dependent. Continue home dose of prednisone. She is also on hydroxychloroquine which should be continued 11. Elevated bilirubin Of undetermined significance. This can be further worked up by her outpatient provider if necessary 12. Elevated serum creatinine This did not quite meet the criteria for an acute kidney injury. Creatinine is much improved today and back to its baseline 13. Hypothyroidism Continue home dose of levothyroxine 14. Anxiety; concerns for underlying psychiatric illness Would recommend outpatient referral to psychiatry 15. Iron deficiency anemia She receives iron infusions for this. Her hemoglobin is stable 16. Inflammatory bowel disease; possible Crohn's disease The patient tells me she has a history of Crohn's disease. She does have decreased absorption from a partial colectomy in the past. Will defer to her outpatient providers for management Additional Instructions or Follow Up instructions: The patient and family are counseled as to the diagnosis and need for admission. This document was made in part using voice recognition software, while efforts are made to proofread this document, sound alike an grammatical errors may occur. Follow-Up Care: Home Health - PT, Home Health - OT, Home Health - ST No Smoking: If you smoke, Please STOP! Call for help. Follow-up with: Jose Meng MD [Primary Care Provider] -
--- NOTE | 2023-12-31 12:18 | DISCHARGE SUMMARY ---
Discharge Summary Admit Date: 12/30/23 Discharge Date: 12/31/23 Discharging Provider: Nitza Spangler PA-C Primary Care Provider: Dr Jose Toledo Code Status: Attempt Resuscitation Condition at Discharge: Fair Discharge Disposition: Home Health Service - DIAGNOSES Discharge Diagnoses with Status of Each Condition: 1. Presyncope; ataxia The patient presented with reports of syncope. Her daughter had reported that she had had over 50 syncopal episodes the day she presented to the emergency room. However after further discussions with the daughter it does not sound like the patient loses consciousness. It is more that she when she is trying to ambulate she will lean to the left and sometimes fall. No seizure activity has been seen during this hospitalization. The patient's daughter states that sometimes she will zone out for a few seconds when this happens. The patient follows closely with her outpatient provider. She has already been referred to neurology. She has not yet had her first appointment. Would recommend neurology follow up at discharge. She has been seen by physical therapy. We are writing for a rolling walker at discharge. She should ambulate with a walker at this point. 2. Hallucinations The patient is having auditory and visual hallucinations. However she has been having these for several years but they have gotten much worse here recently. MRI of the brain was unrevealing. Would recommend psychiatry referral as an outpatient. Again these hallucinations are nothing new. 3. Narcolepsy Continue home regimen 4. Chronic respiratory failure due to COPD The patient is not decompensated. She is on her baseline oxygen requirements at the time of admission. She has some chronic compensated hypercapnia. She does follow with pulmonology 5. 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 She follows with oncology as an outpatient 6. Opioid dependence The patient has a history of prescription opioid abuse. She is maintained on buprenorphine. She should continue this as an outpatient 7. History of alcohol abuse No evidence of alcohol withdrawal. She said she quit drinking many years ago. However she said she was a heavy drinker for about 40 years. 8. GERD Continue home dose of Protonix 9. Chronic pain She is on an extremely high dose of gabapentin at home. Would recommend discussing cutting this back with her primary care provider. She will continue her buprenorphine. 10. Rheumatoid arthritis She is steroid-dependent. Continue home dose of prednisone. She is also on hydroxychloroquine which should be continued 11. Elevated bilirubin Of undetermined significance. This can be further worked up by her outpatient provider if necessary 12. Elevated serum creatinine This did not quite meet the criteria for an acute kidney injury. Creatinine is much improved today and back to its baseline 13. Hypothyroidism Continue home dose of levothyroxine 14. Anxiety; concerns for underlying psychiatric illness Would recommend outpatient referral to psychiatry 15. Iron deficiency anemia She receives iron infusions for this. Her hemoglobin is stable 16. Inflammatory bowel disease; possible Crohn's disease The patient tells me she has a history of Crohn's disease. She does have decreased absorption from a partial colectomy in the past. Will defer to her outpatient providers for management - HPI History of Present Illness: From the admission HP: Ms. Porras is a 73-year-old female with past medical history of COPD on 3 L nasal cannula at home. She has a history of vertigo, history of pancreatic cancer in remission, narcolopsy and crohn's disease [facility] reported repeat syncopal episodes. Patient was brought in by her daughter after she witnessed multiple syncopal episodes, reporting "over 50" of these episodes. Patient notes presyncopal symptoms prior to these happening. She notes she has never had these before. She has been taking her home medications and has not skipped any doses of medications. Patient is not currently on chemo treatment. She notes some mild headaches but no other symptoms. She denies any fevers no neck pain no photophobia no numbness or tingling in upper or lower extremities. She denies any chest pain or worsening shortness of breath. She is on 3 L nasal cannula for her history of COPD and history of right lobectomy. In the ED a head CT was done and was unremarkable. Her 12-lead showed sinus tachycardia but was otherwise normal. Her HR in her initial vitals was 55 but she has not been bradycardic since with HR in the low 100's during admission intake and BP stable. She developed "10/10" chest pain that resolved with protonix. She has mild sob at time of admission, denies chest pain, headache, changes in vision, abdominal pain, changes in bowel patterns, or fever/chills. - HOSPITAL COURSE Hospital Course: Please see discussion above. The patient was brought to the hospital after reportedly having up to 50 syncopal episodes at home. Upon further discussion with the patient and her daughter it appears that the patient really is just having ambulatory dysfunction and ataxia. The patient's daughter reports that sometimes she zones out and she will list to the left. The patient denies adamantly that she ever has lost consciousness and seems to be aware of these episodes. The patient has a long list of medical problems. She follows closely with her outpatient provider. She has already been referred to a neurologist as an outpatient. While gathering history from the patient it appears that she has had longstanding issues with auditory and visual hallucinations. According to the patient these are worsening recently. She has never had a psychiatry evaluation. We did obtain an MRI of the brain which revealed evidence of cerebral atherosclerosis but otherwise nothing acute. No evidence of a CVA or metastases from her known malignancy. After long discussion with the patient she desires to go home today. None of these issues are acute and have been ongoing for quite some time. She already has a neurology referral in place. Would recommend a psychiatry referral as well. Physical therapy saw the patient and recommended a rolling walker which we have arranged for the patient. Also due to the fact that her daughter has schizophrenia and the patient has some clear psychiatric issues we are going to set up home health nursing, physical therapy, Occupational Therapy and social work to help give her support in the outpatient setting. At this point maximum hospital benefit has been reached. The patient will be discharged today in stable condition. I do not even know what to say about her - ALLERGIES Allergies/Adverse Reactions: Allergies Allergy/AdvReac Type Severity Reaction Status Date / Time Penicillins Allergy Cramps Verified 12/30/23 11:33 - MEDICATIONS Home Medications: Ambulatory Orders Medication Instructions Recorded Confirmed Albuterol 2.5 mg INH Q4H PRN 11/02/16 12/30/23 Gabapentin 1,600 mg PO TID 11/02/16 12/30/23 Hydroxychloroquine [Plaquenil] 200 mg PO BID 11/02/16 12/30/23 Oxybutynin [Ditropan] 5 mg PO DAILY 11/02/16 12/30/23 predniSONE [Prednisone] 10 mg PO DAILY 11/02/16 12/30/23 Duloxetine HCl [Cymbalta] 120 mg PO DAILY 09/30/20 12/30/23 Fluticasone Propion/Salmeterol 1 spray IH BID 09/30/20 12/30/23 [Wixela 500-50 Inhub] Olopatadine HCl [Pataday] 2.5 ml OP DAILY PRN 09/30/20 12/30/23 Colestipol HCl [Colestid] 2 gm PO BID 10/06/20 12/30/23 Fluticasone [Flonase] 2 sprays HARPREET DAILY 10/06/20 12/30/23 Levothyroxine Sodium 150 mcg PO DAILY 10/06/20 12/30/23 Pantoprazole Sodium [Protonix] 20 mg PO BID 10/06/20 12/30/23 hydrOXYzine HCL [Hydroxyzine HCl] 25 mg PO QID PRN 10/06/20 12/30/23 Acetaminophen [Tylenol] 1,000 mg PO TID PRN tablet 10/08/20 12/30/23 ALPRAZolam [Alprazolam] 0.5 mg PO TID PRN 09/29/23 12/30/23 Ondansetron Odt [Zofran Odt] 4 mg TL BID 09/29/23 12/30/23 Tezepelumab-Ekko [Tezspire] 210 mg SQ ONCE 09/29/23 12/30/23 buprenorphine HCL [Buprenorphine 2 mg SL Q6H 09/29/23 12/30/23 HCl] Hydrocodone/Acetaminophen 1 tab PO 5XD PRN 12/30/23 12/30/23 [Hydrocodone-Acetamin 10-325 mg] Levothyroxine [Synthroid] 150 mcg PO DAILY 12/30/23 12/30/23 Tezepelumab-Ekko [Tezspire] 1.19 ml SUBQ Q28D 12/30/23 12/30/23 Formoterol Fumarate [Perforomist] 20 mcg INH RTBID ml 12/31/23 Saliva Stimulant K[place]ett [Biotene 2 sprays PO Q4H PRN each 12/31/23 Moisturizing Mouth Kensett] - PHYSICAL EXAM AT DISCHARGE General Appearance: positive: No acute distress, Anxious Eyes Bilateral: positive: Normal inspection ENT: positive: ENT inspection nml, Other (Except that I am glad we get more getting her out and said that has all of that and there she has mild bitemporal muscle wasting bilaterally) Neck: positive: Nml inspection Respiratory: positive: Chest non-tender, No respiratory distress, Other (She is receiving oxygen via nasal cannula) Cardiovascular: positive: Regular rate & rhythm, No murmur, No gallop. negative: Friction rub Abdomen: positive: Non-tender, Nml bowel sounds Skin: positive: Color nml, No rash, Warm, Dry Extremities: positive: Non-tender, Full ROM - LABS Result Diagrams: 12/31/23 05:19 12/31/23 05:19 - SEPSIS Current Stage of Sepsis: Ruled out - FOLLOW UP Follow Up: Follow up with primary care in 1 week - TIME SPENT Time Spent in Discharge (Minutes): 35
[2023-12-31 12:56] VITALS: BP 111/62
== END 2023-12-31 15:00 | disposition home health service (06) ==
LOC: ED 11:16 → MS2 16:47
PROVIDERS: ADMIT Physician Assistant; ATTEND Physician Assistant
DX: R55 Syncope and collapse (principal); R27.0 Ataxia, unspecified; R44.1 Visual hallucinations; J44.9 Chronic obstructive pulmonary disease, unspecified; J96.12 Chronic respiratory failure with hypercapnia; R44.0 Auditory hallucinations; G47.419 Narcolepsy without cataplexy; Z99.81 Dependence on supplemental oxygen; Z85.07 Personal history of malignant neoplasm of pancreas; F11.20 Opioid dependence, uncomplicated; K21.9 Gastro-esophageal reflux disease without esophagitis; G89.29 Other chronic pain; M06.9 Rheumatoid arthritis, unspecified; R17 Unspecified jaundice; E03.9 Hypothyroidism, unspecified; F41.9 Anxiety disorder, unspecified; D50.9 Iron deficiency anemia, unspecified; K58.9 Irritable bowel syndrome, unspecified; R00.0 Tachycardia, unspecified; I67.2 Cerebral atherosclerosis; R42 Dizziness and giddiness; Z87.891 Personal history of nicotine dependence
CPT/HCPCS: 36415; 70450; 70553; 80053; 80069; 81001; 83690; 83735; 84443; 84484; 85025; 87086; 93005; 93307; 94640; 96372; 96374; 97162; 99284; 99285; A9270; G0378; J1650; J7512; J7626